=== PATIENT | male | born 1950 | race Caucasian/White ===

== ENCOUNTER → 2016-06-11 | Outpatient (REF) | payer OTHER, BC ==
[~2016-06-11] MED LIST: /RANI15TA PO; /WARF25TA PO; ACET50TA PO; ALTA10CA3 PO; ALTACE PO; COLA50CA3 PO; COUM7.5T PO; DILA2TAB PO; FURO20TA PO; INSULANT SC; JANU100T PO; LANTUS SOLOSTAR SC; LASI80TA PO; LIDO1DIS2 TD; LOPR100T PO; LOPRESSOR PO; METF1000 PO; MIRA255PW PO; OXYC30TA4 PO; PERC7.5T12 PO; PRAV80TA2 PO; PRAVACHOL PO; RANITIDINE HCL PO; VIAGRA PO; ZETI10TA21 PO; ZETIA PO
[2016-06-11 18:19] LABS: ALBUMIN 4.4 GM/DL (3.2-5.2); ALBUMIN/GLOBULIN RATIO 1.42 (1.00-1.93); ALKALINE PHOSPHATASE 73 U/L (45-117); ALT/SGPT 22 U/L (12-78); ANION GAP 9 MEQ/L (8-16); AST/SGOT 22 U/L (15-37); BILIRUBIN,TOTAL 0.6 MG/DL (0.2-1.0); BLOOD UREA NITROGEN 19 MG/DL (7-18); CALCIUM LEVEL 9.3 MG/DL (8.8-10.2); CARBON DIOXIDE LEVEL 30 MEQ/L (21-32); CHLORIDE LEVEL 104 MEQ/L (98-107); CHOLESTEROL LEVEL 154 MG/DL (<200); CREATININE FOR GFR 1.18 MG/DL (0.70-1.30); GLOMERULAR FILTRATION RATE > 60.0 (>49); GLUCOSE, FASTING 65 MG/DL (80-110); SODIUM LEVEL 143 MEQ/L (136-145); TOTAL PROTEIN 7.5 GM/DL (6.4-8.2); TRIGLYCERIDES LEVEL 144 MG/DL (<150)
== END ==
LOC: M SFHCCLAY 09:59
PROVIDERS: ATTEND Family Medicine
DX: E11.9 Type 2 diabetes mellitus without complications (principal)

== ENCOUNTER → 2016-09-24 | Outpatient (REF) | payer BC, OTHER ==
[2016-09-24 11:32] LABS: ANION GAP 8 MEQ/L (8-16); BLOOD UREA NITROGEN 28 MG/DL (7-18); CALCIUM LEVEL 9.6 MG/DL (8.8-10.2); CARBON DIOXIDE LEVEL 29 MEQ/L (21-32); CHLORIDE LEVEL 105 MEQ/L (98-107); CREATININE FOR GFR 1.15 MG/DL (0.70-1.30); GLOMERULAR FILTRATION RATE > 60.0 (>49); GLUCOSE, FASTING 93 MG/DL (80-110); POTASSIUM SERUM 4.2 MEQ/L (3.5-5.1); SODIUM LEVEL 142 MEQ/L (136-145)
== END ==
LOC: M SFHCCLAY 07:46
PROVIDERS: ATTEND Family Medicine
DX: E11.9 Type 2 diabetes mellitus without complications (principal)

== ENCOUNTER → 2017-01-07 | Outpatient (REF) | payer OTHER, BC ==
[2017-01-07 11:48] LABS: BASO # 0.1 10^3/uL (0.0-0.2); BASO % 0.6 % (0.0-1.0); EOS # 0.1 10^3/uL (0.0-0.50); EOS % 1.3 % (0.0-3.0); IMMATURE GRANULOCYTE % 0.7 % (0-0); LYMPH # 2.3 10^3/uL (1.5-4.5); LYMPH % 26.8 % (24.0-44.0); MEAN CORPUSCULAR HEMOGLOBIN 30.3 pg (27.0-33.0); MEAN CORPUSCULAR HGB CONC 32.4 g/dl (32.0-36.5); MEAN CORPUSCULAR VOLUME 93.6 fl (80.0-96.0); MONO # 0.7 10^3/uL (0.0-0.8); MONO % 8.6 % (0.0-5.0); NEUTROPHILS # 5.4 10^3/uL (1.8-7.7); PLATELET COUNT, AUTOMATED 286 10^3/uL (150-450); WHITE BLOOD COUNT 8.6 10^3/uL (4.0-10.0)
[2017-01-07 12:12] LABS: ANION GAP 8 MEQ/L (8-16); BLOOD UREA NITROGEN 23 MG/DL (7-18); CALCIUM LEVEL 8.7 MG/DL (8.8-10.2); CARBON DIOXIDE LEVEL 29 MEQ/L (21-32); CHLORIDE LEVEL 106 MEQ/L (98-107); CREATININE FOR GFR 1.09 MG/DL (0.70-1.30); GLOMERULAR FILTRATION RATE > 60.0 (>49); GLUCOSE, FASTING 132 MG/DL (80-110); POTASSIUM SERUM 4.5 MEQ/L (3.5-5.1); SODIUM LEVEL 143 MEQ/L (136-145)
== END ==
LOC: M SFHCCLAY 07:48
PROVIDERS: ATTEND Family Medicine
DX: K52.9 Noninfective gastroenteritis and colitis, unspecified (principal); E11.9 Type 2 diabetes mellitus without complications; K21.0 Gastro-esophageal reflux disease with esophagitis

== ENCOUNTER → 2017-01-07 | Outpatient (CLI) | payer OTHER, BC ==
--- NOTE | 2017-01-07 09:21 | REP ---
Clinical: Plantar fasciitis. Technique: AP, lateral, bilateral oblique views of the right foot. Findings: Osseous structures are intact. Moderate generative changes at the first metatarsophalangeal joint includes joint space narrowing, subchondral sclerosis and marginal osteophyte. Lateral view demonstrates normal plantar soft tissues without calcification or obvious swelling. Calcaneus is normal and without heal spur. Impression: Degenerative changes at the first metatarsophalangeal joint. Signed by Gabriel Peña MD 01/07/2017 09:12 A
== END ==
LOC: M CLY 08:24
PROVIDERS: ATTEND Family Medicine
DX: M72.2 Plantar fascial fibromatosis (principal); K52.9 Noninfective gastroenteritis and colitis, unspecified

== ENCOUNTER → 2017-04-15 | Outpatient (REF) | payer BC, OTHER ==
[2017-04-15 12:07] LABS: ALBUMIN 4.6 GM/DL (3.2-5.2); ALBUMIN/GLOBULIN RATIO 1.48 (1.00-1.93); ALKALINE PHOSPHATASE 91 U/L (45-117); ALT/SGPT 28 U/L (12-78); ANION GAP 8 MEQ/L (8-16); AST/SGOT 19 U/L (7-37); BILIRUBIN,TOTAL 0.7 MG/DL (0.2-1.0); BLOOD UREA NITROGEN 23 MG/DL (7-18); CALCIUM LEVEL 9.2 MG/DL (8.8-10.2); CARBON DIOXIDE LEVEL 30 MEQ/L (21-32); CHLORIDE LEVEL 105 MEQ/L (98-107); CHOLESTEROL LEVEL 160 MG/DL (<200); CREATININE FOR GFR 1.16 MG/DL (0.70-1.30); GLOMERULAR FILTRATION RATE > 60.0 (>49); GLUCOSE, FASTING 94 MG/DL (70-100); HDL CHOLESTEROL 50 MG/DL (>40); LDL CHOLESTEROL 79.2 MG/DL (<100); NON-HDL-C 110 MG/DL; POTASSIUM SERUM 4.1 MEQ/L (3.5-5.1); SODIUM LEVEL 143 MEQ/L (136-145); TOTAL PROTEIN 7.7 GM/DL (6.4-8.2); TRIGLYCERIDES LEVEL 154 MG/DL (<150)
[2017-04-15 12:18] LABS: ESTIMATED AVERAGE GLUCOSE 171 MG/DL (60-110); HEMOGLOBIN A1c 7.6 %
[2017-04-15 12:43] LABS: CREATININE, URINE 21.5 MG/DL; MALB URINE SIEMENS 7.1 MG/L
== END ==
LOC: M SFHCCLAY 08:19
DX: E11.9 Type 2 diabetes mellitus without complications (principal); I10 Essential (primary) hypertension

== ENCOUNTER → 2018-01-05 | Outpatient (REF) | payer BC ==
[2018-01-05 17:35] LABS: ALBUMIN 4.1 GM/DL (3.2-5.2); ANION GAP 9 MEQ/L (8-16); BLOOD UREA NITROGEN 20 MG/DL (7-18); CALCIUM LEVEL 8.7 MG/DL (8.8-10.2); CARBON DIOXIDE LEVEL 28 MEQ/L (21-32); CHLORIDE LEVEL 104 MEQ/L (98-107); CREATININE FOR GFR 1.25 MG/DL (0.70-1.30); GLOMERULAR FILTRATION RATE > 60.0 (>49); GLUCOSE, FASTING 224 MG/DL (70-100); PHOSPHORUS LEVEL 3.1 MG/DL (2.5-4.9); POTASSIUM SERUM 4.3 MEQ/L (3.5-5.1); SODIUM LEVEL 141 MEQ/L (136-145)
[2018-01-05 18:44] LABS: ESTIMATED AVERAGE GLUCOSE 171 MG/DL (60-110); HEMOGLOBIN A1c 7.6 %
== END ==
LOC: M SFHCCLAY 10:16
DX: E11.9 Type 2 diabetes mellitus without complications (principal); I10 Essential (primary) hypertension

== ENCOUNTER → 2018-05-05 | Outpatient (REF) | payer MEDICARE ==
[2018-05-05 16:58] LABS: ALBUMIN 4.2 GM/DL (3.2-5.2); ALT/SGPT 41 U/L (12-78); BILIRUBIN,TOTAL 0.5 MG/DL (0.2-1.0); BLOOD UREA NITROGEN 27 MG/DL (7-18); CALCIUM LEVEL 8.9 MG/DL (8.8-10.2); CARBON DIOXIDE LEVEL 32 MEQ/L (21-32); CHLORIDE LEVEL 104 MEQ/L (98-107); CREATININE FOR GFR 1.18 MG/DL (0.70-1.30); GLOMERULAR FILTRATION RATE > 60.0 (>49); GLUCOSE, FASTING 70 MG/DL (70-100); POTASSIUM SERUM 4.3 MEQ/L (3.5-5.1); SODIUM LEVEL 141 MEQ/L (136-145); TOTAL PROTEIN 7.2 GM/DL (6.4-8.2)
[2018-05-05 17:00] LABS: CHOLESTEROL RISK RATIO 2.83 (<5)
[2018-05-05 17:13] LABS: HEMOGLOBIN A1c 7.3 %
[2018-05-05 17:21] LABS: CREATININE, URINE 18.8 MG/DL; MALB URINE SIEMENS < 5.0 MG/L; MAU/CREAT RATIO 26.5 MCG/MG (0.0-30.0)
== END ==
LOC: M SFHCCLAY 10:47
PROVIDERS: ATTEND Family Medicine
DX: I10 Essential (primary) hypertension (principal); E11.9 Type 2 diabetes mellitus without complications; E78.00 Pure hypercholesterolemia, unspecified

== ENCOUNTER → 2018-09-26 | Outpatient (REF) | payer MEDICARE ==
[~2018-09-26] MED LIST changes: -/RANI15TA PO; -/WARF25TA PO; -ACET50TA PO; +COUM1TAB18 PO; +MAPA500T17 PO; -MIRA255PW PO; +POLY1POW4 PO; +RANI1TAB17 PO
[2018-09-26 17:34] LABS: BLOOD UREA NITROGEN 19 MG/DL (7-18); CALCIUM LEVEL 9.1 MG/DL (8.8-10.2); CARBON DIOXIDE LEVEL 29 MEQ/L (21-32); CHLORIDE LEVEL 106 MEQ/L (98-107); CREATININE FOR GFR 1.21 MG/DL (0.70-1.30); GLOMERULAR FILTRATION RATE > 60.0 (>49); GLUCOSE, FASTING 134 MG/DL (70-100); POTASSIUM SERUM 4.1 MEQ/L (3.5-5.1); SODIUM LEVEL 141 MEQ/L (136-145)
[2018-09-26 17:54] LABS: HEMOGLOBIN A1c 7.8 %
[2018-09-26 18:00] LABS: CREATININE, URINE 37.6 MG/DL; MALB URINE SIEMENS 6.2 MG/L; MAU/CREAT RATIO 16.4 MCG/MG (0.0-30.0)
== END ==
LOC: M SFHCCLAY 12:05
PROVIDERS: ATTEND Family Medicine
DX: E11.9 Type 2 diabetes mellitus without complications (principal)

== ENCOUNTER → 2018-09-26 | Outpatient (CLI) | payer MEDICARE ==
--- NOTE | 2018-09-26 14:26 | REP ---
RIGHT ANKLE, FOUR VIEWS: HISTORY: Foot pain. There is no acute fracture or dislocation. The joint space is normal in appearance. IMPRESSION: There is no acute fracture or dislocation. Electronically Signed by Matias Edmond MD 09/26/2018 02:29 P
--- NOTE | 2018-09-26 14:30 | REP ---
RIGHT FOOT, FOUR VIEWS: HISTORY: Pain. COMPARISON: 12/28/2016. There is no acute fracture or dislocation. There are narrowing of the 1st metatarsophalangeal joint space with associated osteophyte formation and sclerosis. The remaining joint spaces are normal in appearance. An osteophyte is present on the inferior calcaneus. IMPRESSION: Degenerative change as described above. Electronically Signed by Matias Edmond MD 09/26/2018 02:53 P
== END ==
LOC: M CLY 13:05
PROVIDERS: ATTEND Family Medicine
DX: M19.071 Primary osteoarthritis, right ankle and foot (principal); M79.671 Pain in right foot

== ENCOUNTER → 2018-10-19 | Outpatient (REF) | payer MEDICARE | LOC: M LAB LCGH 14:05 | PROVIDERS: ATTEND Physician Assistant | DX: D48.5 Neoplasm of uncertain behavior of skin (principal) ==

== ENCOUNTER → 2019-02-13 | Outpatient (REF) | payer MEDICARE ==
[2019-02-13 13:04] LABS: ALT/SGPT 17 U/L (12-78); BLOOD UREA NITROGEN 21 MG/DL (7-18); CALCIUM LEVEL 9.3 MG/DL (8.8-10.2); CARBON DIOXIDE LEVEL 31 MEQ/L (21-32); CHLORIDE LEVEL 103 MEQ/L (98-107); CHOLESTEROL LEVEL 171 MG/DL (<200); CHOLESTEROL RISK RATIO 3.638 (<5); CREATININE FOR GFR 1.13 MG/DL (0.70-1.30); GLOMERULAR FILTRATION RATE > 60.0 (>49); GLUCOSE, FASTING 87 MG/DL (70-100); HDL CHOLESTEROL 47 MG/DL (>40); HEMOGLOBIN A1c 7.8 %; LDL CHOLESTEROL 100 MG/DL (<100); NON-HDL-C 124 MG/DL; POTASSIUM SERUM 4.1 MEQ/L (3.5-5.1); SODIUM LEVEL 142 MEQ/L (136-145); TRIGLYCERIDES LEVEL 120 MG/DL (<150)
== END ==
LOC: M SFHCCLAY 07:49
PROVIDERS: ATTEND Family Medicine
DX: I10 Essential (primary) hypertension (principal); Z12.5 Encounter for screening for malignant neoplasm of prostate; E11.9 Type 2 diabetes mellitus without complications
CPT/HCPCS: 80048; 80061; 83036; 84460; G0103

== ENCOUNTER → 2019-06-08 | Outpatient (REF) | payer MEDICARE ==
[2019-06-08 12:43] LABS: BLOOD UREA NITROGEN 26 MG/DL (7-18); CALCIUM LEVEL 8.3 MG/DL (8.8-10.2); CARBON DIOXIDE LEVEL 27 MEQ/L (21-32); CHLORIDE LEVEL 106 MEQ/L (98-107); CREATININE FOR GFR 1.26 MG/DL (0.70-1.30); GLOMERULAR FILTRATION RATE > 60.0 (>49); GLUCOSE, FASTING 168 MG/DL (70-100); POTASSIUM SERUM 4.4 MEQ/L (3.5-5.1); SODIUM LEVEL 141 MEQ/L (136-145)
[2019-06-08 13:01] LABS: HEMOGLOBIN A1c 7.5 %
== END ==
LOC: M SFHCCLAY 09:45
PROVIDERS: ATTEND Family Medicine
DX: I10 Essential (primary) hypertension (principal); E11.9 Type 2 diabetes mellitus without complications

== ENCOUNTER 2019-11-14 10:52 | Emergency (ER) | payer BC, MEDICARE ==
[~2019-11-14] VITALS: Ht 180.3 cm; Wt 110.7 kg
[2019-11-14] MEDS ORDERED: EZET10TA21 PO (11:30)
[2019-11-14] MEDS ORDERED: RAMI1CAP26 PO (11:30)
[2019-11-14] MEDS ORDERED: MONT10TA4 PO (11:30)
[2019-11-14] MEDS ORDERED: ESOM40CA35 PO (11:30)
[2019-11-14] MEDS ORDERED: FURO40TA2 PO (11:30)
[2019-11-14] MEDS ORDERED: PRAV80TA2 PO (11:30)
[2019-11-14] MEDS ORDERED: METO100T5 PO (11:30)
[2019-11-14] MEDS ORDERED: LANTINJ4 SQ (11:30)
[2019-11-14] MEDS ORDERED: JARD1TAB3 PO (11:30)
[2019-11-14] MEDS ORDERED: METF10004 PO (11:30)
[2019-11-14] MEDS ORDERED: OCUVCAP2 PO (11:32)
[2019-11-14] MEDS ORDERED: DAILTAB PO (11:32)
[2019-11-14 11:42] LABS: BASO % 0.5 % (0.0-1.0); EOS % 0.5 % (0.0-3.0); HEMATOCRIT 49.7 % (42.0-52.0); HEMOGLOBIN 16.2 g/dl (13.5-17.5); LYMPH # 1.9 10^3/uL (1.5-5.0); LYMPH % 24.4 % (24.0-44.0); MEAN CORPUSCULAR HEMOGLOBIN 30.3 pg (27.0-33.0); MEAN CORPUSCULAR HGB CONC 32.6 g/dl (32.0-36.5); MEAN CORPUSCULAR VOLUME 92.9 fl (80.0-96.0); MONO # 0.6 10^3/uL (0.0-0.8); MONO % 7.2 % (0.0-5.0); NEUTROPHILS # 5.3 10^3/uL (1.5-8.5); NEUTROPHILS % 67.3 % (36.0-66.0); PLATELET COUNT, AUTOMATED 240 10^3/uL (150-450); RED BLOOD COUNT 5.35 10^6/uL (4.30-6.10); WHITE BLOOD COUNT 7.9 10^3/uL (4.0-10.0)
[2019-11-14 11:52] LABS: INR 0.93; PROTHROMBIN TIME 12.7 SECONDS (12.5-14.3)
[2019-11-14 11:53] LABS: PARTIAL THROMBOPLASTIN TIME 28.1 SECONDS (24.2-38.5)
[2019-11-14 12:12] LABS: BILIRUBIN,DIRECT 0.2 MG/DL (0.0-0.2); BILIRUBIN,TOTAL 0.8 MG/DL (0.2-1.0); FREE T4 0.89 NG/DL (0.76-1.46); THYROID STIMULATING HORMONE 4.27 uIU/ML (0.358-3.740); TOTAL PROTEIN 7.1 GM/DL (6.4-8.2)
[2019-11-14] MEDS ORDERED: ELIQ5TAB PO (14:36)
[2019-11-14] MEDS ORDERED: METO50TA7 PO (14:37)
[2019-11-14 15:02] VITALS: O2SAT 97
[2019-11-14 15:45] VITALS: BP 108/56
--- NOTE | 2019-11-15 20:45 | ECGEPIP ---
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
--- NOTE | 2019-11-21 10:20 | REP ---
PORTABLE CHEST X-RAY: SINGLE VIEW HISTORY: Chest pain. COMPARISON: Chest x-ray 04/23/2013. FINDINGS: Thoracolumbar fusion hardware is noted. Monitoring electrodes are seen. Left hemidiaphragm is slightly elevated. There is minimal linear fibrosis on the left in the perihilar region. Lung kinney are otherwise clear. Pleural angles are sharp. Heart is not enlarged. IMPRESSION: No acute disease. MTDD
== END 2019-11-14 15:53 | disposition home or self-care (01) ==
LOC: EDBD 10:52 → M ED 10:52
DX: I48.92 Unspecified atrial flutter (principal); I45.19 Other right bundle-branch block; E11.9 Type 2 diabetes mellitus without complications; I10 Essential (primary) hypertension; K21.9 Gastro-esophageal reflux disease without esophagitis; E78.00 Pure hypercholesterolemia, unspecified; Z87.891 Personal history of nicotine dependence; Z79.84 Long term (current) use of oral hypoglycemic drugs; Z79.899 Other long term (current) drug therapy

== ENCOUNTER → 2019-12-10 | Outpatient (CLI) | payer MEDICARE ==
[~2019-12-10] MED LIST changes: +DAILTAB PO; +ELIQ5TAB PO; +ESOM40CA35 PO; +EZET10TA21 PO; +FURO40TA2 PO; +JARD1TAB3 PO; +LANTINJ4 SQ; +METF10004 PO; +METO100T5 PO; +METO50TA7 PO; +MONT10TA4 PO; +OCUVCAP2 PO; +RAMI1CAP26 PO
--- NOTE | 2019-12-21 12:10 | SLEEPHOME ---
DATE: 12/10/2019 ORDERED BY: Dr. Macdonald Diagnostic home sleep testing was performed due to concern for the obstructive sleep apnea syndrome. There was 9 hours and 59 minutes of data reviewed. There was 6 hours and 21 minutes marked as time in bed. During the interval marked time in bed, there were 163 respiratory events identified of 10 seconds in duration or greater for a respiratory event index of 25.6. The events were obstructive. Baseline pulse rate 55. Pulse rate ranged 27-104. Baseline saturation 95%. Saturations fell to 70%. Testing was performed in both the supine and nonsupine positions. IMPRESSION: Abnormal home sleep testing with repetitive respiratory events and oxygen desaturations to 70% with a respiratory event index of 26.6 is consistent with the obstructive sleep apnea syndrome (G47.33). RECOMMENDATION: The patient should be encouraged to undergo formal sleep evaluation. MTDD
== END ==
LOC: M SLEEP HO 12-05 09:42
PROVIDERS: ATTEND Internal Medicine Cardiovascular Disease
DX: R06.83 Snoring (principal)

== ENCOUNTER → 2020-01-25 | Outpatient (CLI) | payer MEDICARE, BC ==
[~2020-01-25] MED LIST changes: +ACET1TAB37 PO; +METO1TAB7 PO; -MONT10TA4 PO; +MONT5TAB2 PO; +TRUL0.5I SC
== END ==
LOC: M LABSMTC 12:31
PROVIDERS: ATTEND Anesthesiology
DX: Z01.812 Encounter for preprocedural laboratory examination (principal); Z20.828 Contact with and (suspected) exposure to other viral communicable diseases

== ENCOUNTER 2020-01-30 11:14 | Day surgery (SDC) | payer MEDICARE, BC ==
[~2020-01-30] VITALS: Ht 180.3 cm; Wt 108.0 kg
[~2020-01-30 11:14] MED LIST changes: +NS 1,000 ML IV ONE
[2020-01-30] MEDS ORDERED: propofoL 200 MG/20 ML VIAL As Ordered ONE ×2 (13:16→13:40)
[2020-01-30] MEDS ORDERED: LIDOCAINE 2% 100MG/5ML SDV (FOR ANES.) As Ordered ONE (13:16)
[2020-01-30] MEDS ORDERED: SIMETHICONE 40MG/0.6ML DROPS 30ML As Ordered ONE (13:17)
[2020-01-30] MEDS ORDERED: PHENYLephrine HCL 500 MCG/5 ML (100MCG/ML) SYRINGE (J2370) As Ordered ONE (13:51)
--- NOTE | 2020-01-30 14:06 | ROOR ---
Patient Name: Vic Reyes Procedure Date: 01/30/2020 1:23 PM Date of : 1950 Age: 69 Room: [facility] Gender: Male Note Status: Finalized Procedure: Total Colonoscopy to Cecum + Cold Snare Polypectomy + Hemoclips + Biopsies Indications: Clinically significant diarrhea of unexplained origin, Follow-up of chronic ulcerative proctitis, Change in bowel habits Providers: Yordan Ross MD Referring MD: Omari Wilde MD Requesting Provider: Medicines: Monitored Anesthesia Care Complications: No immediate complications. Procedure: Pre-Anesthesia Assessment: - The heart rate, respiratory rate, oxygen saturations, blood pressure, adequacy of pulmonary ventilation, and response to care were monitored throughout the procedure. The Colonoscope was introduced through the anus and advanced to the cecum, identified by appendiceal orifice and ileocecal valve. The colonoscopy was performed without difficulty. The patient tolerated the procedure well. The quality of the bowel preparation was excellent. Findings: The perianal and digital rectal examinations were normal. A localized area of moderately congested, erythematous, granular, ulcerated and yawsqupe-tmzcggu-mwcoplcma mucosa was found in the rectum. Biopsies were taken with a cold forceps for histology. A medium polyp was found in the cecum. The polyp was sessile. The polyp was removed with a jumbo cold forceps. Resection and retrieval were complete. To prevent bleeding after the polypectomy, three hemostatic clips were successfully placed (MR conditional). There was no bleeding at the end of the procedure. The exam was otherwise without abnormality on direct and retroflexion views. Impression: - Congested, erythematous, granular, ulcerated and byaaazhd-fdukssc-lezsuppjw mucosa in the rectum. Biopsied. - One medium polyp in the cecum, removed with a jumbo cold forceps. Resected and retrieved. Clips (MR conditional) were placed. - The examination was otherwise normal on direct and retroflexion views. - The exam was otherwise normal to the cecum. Recommendation: - Patient has a contact number available for emergencies. The signs and symptoms of potential delayed complications were discussed with the patient. Return to normal activities tomorrow. Written discharge instructions were provided to the patient. - High fiber diet. - Discharge patient to home. - Use Canasa 1000 mg suppository 1 per rectum QHS for 6 weeks. - Return to my office in 2 months. - Repeat colonoscopy for surveillance based on pathology results. - Telephone GI clinic for pathology results in 1 week. - The findings and recommendations were discussed with the patient. Procedure Code(s): --- Professional --- 62514, Colonoscopy, flexible; with biopsy, single or multiple Diagnosis Code(s): --- Professional --- K62.6, Ulcer of anus and rectum K62.89, Other specified diseases of anus and rectum K63.5, Polyp of colon R19.7, Diarrhea, unspecified K51.20, Ulcerative (chronic) proctitis without complications R19.4, Change in bowel habit CPT copyright 2019 [employer]. All rights reserved. The codes documented in this report are preliminary and upon public services librarian review may be revised to meet current compliance requirements. oYrdan Ross MD Yordan Ross MD 01/30/2020 2:05:27 PM Electronically signed by Yordan Ross MD Number of Addenda: 0 Note Initiated On: 01/30/2020 1:23 PM Estimated Blood Loss: Estimated blood loss: none.
[2020-01-30 14:22] VITALS: BP 126/72
== END 2020-01-30 14:24 | disposition home or self-care (01) ==
LOC: M OPP 11:14
PROVIDERS: ATTEND Internal Medicine Gastroenterology
DX: D12.0 Benign neoplasm of cecum (principal); K62.89 Other specified diseases of anus and rectum; R19.7 Diarrhea, unspecified; K51.20 Ulcerative (chronic) proctitis without complications; K62.1 Rectal polyp; E11.9 Type 2 diabetes mellitus without complications; I48.92 Unspecified atrial flutter; Z79.4 Long term (current) use of insulin; Z79.899 Other long term (current) drug therapy; Z87.891 Personal history of nicotine dependence
CPT/HCPCS: 45380; 88305; J2370

== ENCOUNTER → 2020-02-06 | Outpatient (REF) | payer MEDICARE, BC ==
[~2020-02-06] MED LIST changes: -NS 1,000 ML IV ONE
[2020-02-06 12:26] LABS: BASO % 0.5 % (0.0-1.0); EOS # 0.1 10^3/uL (0.0-0.5); EOS % 1.2 % (0.0-3.0); HEMATOCRIT 50.3 % (42.0-52.0); HEMOGLOBIN 15.6 g/dl (13.5-17.5); LYMPH # 2.7 10^3/uL (1.5-5.0); LYMPH % 34.7 % (24.0-44.0); MEAN CORPUSCULAR HEMOGLOBIN 29.3 pg (27.0-33.0); MEAN CORPUSCULAR VOLUME 94.4 fl (80.0-96.0); MONO # 0.7 10^3/uL (0.0-0.8); MONO % 8.6 % (0.0-5.0); NEUTROPHILS # 4.3 10^3/uL (1.5-8.5); NEUTROPHILS % 54.7 % (36.0-66.0); PLATELET COUNT, AUTOMATED 260 10^3/uL (150-450); RED BLOOD COUNT 5.33 10^6/uL (4.30-6.10); WHITE BLOOD COUNT 7.8 10^3/uL (4.0-10.0)
[2020-02-06 12:55] LABS: BLOOD UREA NITROGEN 24 MG/DL (7-18); CARBON DIOXIDE LEVEL 30 MEQ/L (21-32); CHLORIDE LEVEL 108 MEQ/L (98-107); CREATININE FOR GFR 1.17 MG/DL (0.70-1.30); GLOMERULAR FILTRATION RATE > 60.0 (>49); GLUCOSE, FASTING 75 MG/DL (70-100); POTASSIUM SERUM 3.9 MEQ/L (3.5-5.1); SODIUM LEVEL 142 MEQ/L (136-145)
== END ==
LOC: M LABDRAWC 11:12
PROVIDERS: ATTEND Internal Medicine Cardiovascular Disease
DX: I48.3 Typical atrial flutter (principal)

== ENCOUNTER → 2020-02-24 | Outpatient (CLI) | payer MEDICARE, BC | LOC: M LABSMTC 09:34 | PROVIDERS: ATTEND Internal Medicine Cardiovascular Disease | DX: Z20.828 Contact with and (suspected) exposure to other viral communicable diseases (principal) ==

== ENCOUNTER → 2020-02-27 | Outpatient (REF) | payer MEDICARE, BC ==
[~2020-02-27] MED LIST changes: +MONT10TA10 PO; -MONT5TAB2 PO
[2020-02-27 12:11] LABS: HEMOGLOBIN A1c 7.4 %
[2020-02-27 12:26] LABS: ALBUMIN 4.4 GM/DL (3.2-5.2); ALT/SGPT 26 U/L (12-78); BILIRUBIN,TOTAL 0.7 MG/DL (0.2-1.0); BLOOD UREA NITROGEN 19 MG/DL (7-18); CALCIUM LEVEL 9.1 MG/DL (8.8-10.2); CARBON DIOXIDE LEVEL 30 MEQ/L (21-32); CHLORIDE LEVEL 106 MEQ/L (98-107); CHOLESTEROL LEVEL 150 MG/DL (<200); CHOLESTEROL RISK RATIO 2.631 (<5); CREATININE FOR GFR 1.05 MG/DL (0.70-1.30); GLOMERULAR FILTRATION RATE > 60.0 (>49); GLUCOSE, FASTING 78 MG/DL (70-100); HDL CHOLESTEROL 57 MG/DL (>40); LDL CHOLESTEROL 78 MG/DL (<100); NON-HDL-C 93 MG/DL; POTASSIUM SERUM 4.1 MEQ/L (3.5-5.1); SODIUM LEVEL 142 MEQ/L (136-145); TOTAL PROTEIN 7.3 GM/DL (6.4-8.2); TRIGLYCERIDES LEVEL 76 MG/DL (<150)
[2020-02-27 12:32] LABS: CREATININE, URINE < 13.0 MG/DL; MALB URINE SIEMENS 7.1 MG/L
== END ==
LOC: M SFHCCLAY 09:14
PROVIDERS: ATTEND Family Medicine
DX: E78.00 Pure hypercholesterolemia, unspecified (principal); I10 Essential (primary) hypertension; E11.9 Type 2 diabetes mellitus without complications
CPT/HCPCS: 80053; 80061; 82043; 83036; G0463

== ENCOUNTER → 2020-04-03 | Outpatient (CLI) | payer MEDICARE, BC ==
[~2020-04-03] MED LIST changes: +TOUJ1.2I SC; +VITMTA PO
== END ==
LOC: M LABSMTC 12:42
PROVIDERS: ATTEND Anesthesiology
DX: Z01.812 Encounter for preprocedural laboratory examination (principal); Z20.822 Contact with and (suspected) exposure to COVID-19

== ENCOUNTER 2020-04-08 13:45 | Day surgery (SDC) | payer MEDICARE, BC ==
[~2020-04-08] VITALS: Ht 180.3 cm; Wt 111.1 kg
[~2020-04-08 13:45] MED LIST changes: +LIDOCAINE 1% MDV 20ML VIAL SQ PRN; +LR 1,000 ML IV ONE; +ceFAZolin SOD 1 GM in D5W MINI-BAG PLUS 50 ML IV ONE
--- OUTSIDE RECORDS SUMMARY | 2020-04-08 13:49 | CCD | Continuity of Care Document ---
Author Author Vic ROSS M.D. Organization Unknown Address [address] [place] [address] Phone [phone] Care Team Providers Care Registered Mail Clerk Name Role Phone Omari Wilde M.D. AUTM [phone] Problems Active Problems Provider Date Ulcerative colitis Yordan Ross M.D. Onset: 04/01/19 21 Hemorrhage of rectum and anus Yordan Ross M.D. Onset : 12/11/2019 Social History Type Date Description Comments Sex Unknown ETOH Use Occasionally Tobacco Use Start: Unknown End: Unknown Patient is a former smoker QUIT 1988 Allergies, Adverse Reactions, Alerts Description No Known Drug Allergies Medications Active Medications SIG Qnty Indications Ordering Provide r Date Metformin HCL 1000mg Tablets Omari Wilde M.D. Pravastatin Sodium 80mg Tablets Omari Wilde M.D. Ezetimibe 10mg Tablets Omari Wilde M.D. Furosemide 40mg Tablets Omari Wilde M.D. Trulicity 1.5mg/0.5ML Solution Pen -Inject Omari Wilde M.D. Eliquis 5mg Tablets Nicolas Li M.D. Ramipril 10mg Capsules Omari Wilde M.D. Montelukast Sodium 10mg Tablets Omari Wilde M.D. Esomeprazole Magnesium 40mg Capsules Omari Au M.D. Jardiance 25mg Tablets Unknown Toujeo Max Solostar 300Unit/ML Solution Pen-Inject Omari Wilde M.D. Metoprolol Tartrate 100mg Tablets Omari Wilde M.D. Multiple Vitamin Tablets Unknown Ocuvite Adult 50+ Capsules Unknown History Medications Canasa 1000mg Suppository 1 per rectum at bedtime 60units Yordan Ross M.D. 020 - 03/31/2020 Suprep Bowel Prep Kit 17.5-3.13-1.6GM/177ML Solution use as directed 354ml Yordan Ross M.D. 12/11/2019 - 03/31/2020 Immunizations Description No Information Available Vital Signs Date Vital Result Comment 04/01/2020 11:54am Height 71 inches 5'11" Weight 245.00 lb BP Systolic 133 mmHg BP Diastolic 79 mmHg Heart Rate 78 /min BMI (Body Mass Index) 34.2 kg/m2 Weight 111.132 kg Body Temperature 97.8 F 12/11/2019 1:16pm Height 71 inches 5'11" Weight 241.00 lb BP Systolic 131 mmHg BP Diastolic 79 mmHg Heart Rate 79 /min BMI (Body Mass Index) 33.6 kg/m2 Weight 109.318 kg Body Temperature 97.2 F Results Test Acquired Date Facility Test Result H/L Range Note Laboratory test finding 01/30/2020 [facility] [address] [place] [address] Pathology Request For Service (SEE NOTE) 1, 2 Laboratory test finding 01/30/2020 [facility] [id number] [place] [address] Bedside Glucose 89 mg/dL Normal 80-115 1 FINAL DIAGNOSIS A-Colon, cecal polyp, polypectomy: Tubular adenoma, fragments. B-Rectal biopsy: Colorectal mucosa with showing surface erosion, cryptitis, epithelitis, rare crypt abscess, basal plasmacytosis and gland branching The findings are consistent with patient's history of ulcerative proctitis. moderate activity. No evidence of premalignant dysplasia. 02/01/2020 - 1209 CLINICAL DIAGNOSIS Urgency, bloating, gas, discharge 01/31/2020 - 1135 GROSS DIAGNOSIS A - Received in formalin labeled "cecal polyp" and consists of a fragment of tissue 0.1 x 0.1 x 0.1 cm. All in one. B - Received in formalin labeled "rectal biopsy" and consists of fragments of tissue 0.2 x 0.1 x 0.1 cm. All in one. -OA 01/31/2020 - 1135 Signed ESSENCE SALAZAR MD 02/01/2020 1210 2 02/03/20 (TueFeb 02) 05:50 PM YORDAN ROSS benign adenoma] biopsies are consistent with Ulcerative proctitis. Suppositories sent-Canasa Procedures Date Code Description Status 01/30/2020 79901 Colonoscopy Flexible W/Biopsy Co mpleted Medical Devices Description No Information Available Encounters Type Date Location Provider Dx Diagnosis Office Visit 04/01/2020 11:30a Main Office Yordan Ross M.D. K 51.20 Ulcerative (chronic) proctitis without complications Office Visit 12/11/2019 1:30p Main Office Yordan Ross M.D. K 62.5 Hemorrhage of anus and rectum Assessments Date Code Description Provider 04/01/2020 K51.20 Chronic ulcerative proctitis Car Ross M.D. 01/30/2020 K62.5 Hemorrhage of anus and rectum Luis Ross M.D. 01/30/2020 D12.0 Benign neoplasm of cecum Yordan Ross M.D. 01/30/2020 L53.9 Erythematous condition, unspecif ied Yordan Ross M.D. 12/11/2019 K62.5 Hemorrhage of rectum and anus Luis Ross M.D. Plan of Treatment Future Appointment(s):* 09/30/2020 10:30 am - Yordan Ross M.D. at Main Office 04/01/2020 - Yordan Ross M.D.* K51.20 Chronic ulcerative proctitis* Comments:* 69 yo wm who presented for a h/o urgency for several yrs. Pt has rectal bleeding. No c/o abdominal pain, weight loss,or change in bowel habits. Positive rectal bleeding. No family h/o colon cancer. No h/o chest pain, or sob.He has been using the canasa supp, and his symptoms are improved. Positive Ulcerative Proctitis , no dysplasia on biopsies. Plan:1. Symptoms are all improved.2. Advised to use the suppositories twice each week as a maintenance.3. Office in 6 months. Functional Status Description No Information Available Mental Status Description No Information Available Referrals Refer to Reason for Referral Status Appt Date Nicolas Li M.D. CARDIAC CLEARANCE -PATIENT H APPT WITH DR LI 01-07 ALSO STATES HE MAY HAVE TO GO TO [place] FOR FURTHER WORKUP-DR ROSS WOULD LIKE TO DO A COLONOSCOPY -PATIENT IS ONN [place]-PLEASE EVAL AND ADDRESS REQUEST THANK YOU Created [address] [address] [phone] Nicolas Li M.D. PATIENT STATES HE HAS APPT W YARITZA LI 01-07 AND MAY BE REF TO [place]-DR ROSS WOULD LIKE TO SCHEDULE HIM A COLONOSCOPY BUT REALIZES HE NEEDS CARDIA CLEARANCE-PLEASE SNED AND NOTES AND PLEASE ADDRESS THIS REQUEST Created [address] [address] [phone]
--- OUTSIDE RECORDS SUMMARY | 2020-04-08 13:49 | CCD ---
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 Name Role Phone Iban Anderson Unavailable PROBLEMS Type Condition ICD9-CM Code OKW94-CD Code Onset Dates Condition S tatus SNOMED Code Notes Problem Esophageal reflux K21.9 Active 344684369 Problem Lichen planus L43.9 Active 7824339 Problem DM w/o complication type II E11.9 Active 4404 4009 Problem LVH (left ventricular hypertrophy) I51.7 Activ e 62823380 Problem Allergic rhinitis J30.9 Active 57804285 Problem Essential hypertension I10 Active 07512000 Problem 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 Active 91557541 Problem Varicose veins of left lower extremity with inflammation I83.12 Active 42244383 Problem Personal history of malignant melanoma Z85.820 A ctive 702375094 Problem Plantar fasciitis of right foot M72.2 Active 54506695206440746 Problem Seasonal allergic rhinitis, unspecified trigger J3 0.2 Active 319355542 Problem Stasis dermatitis of both legs I87.2 Active 3 9305206 Problem Non-specific colitis K52.9 Active 061639467 Problem Pure hypercholesterolemia, unspecified E78.00 A ctive 637049622 Problem GERD with esophagitis K21.0 Active 543833546 Problem Pure hypercholesterolemia E78.0 Active 995508 004 Problem Unspecified atrial flutter I48.92 Active 38779 00 Problem History of basal cell carcinoma Z85.828 Active 751798988 Problem History of squamous cell carcinoma Z85.89 Activ e 46645890792877 Problem History of melanoma Z85.820 Active 209117753 ALLERGIES No Known Allergies ENCOUNTERS from 1950 to 2020-03-07 Encounter Location Date Provider Diagnosis [facility] [place] [address] Jul Iban Anderson IMMUNIZATIONS Vaccine Route Administration Date Status Influenza (18 yrs & older) Flublok IM Intramuscular Nov 23, 2019 Administered Zoster 0.65mL (Zostavax) SC Subcutaneous Jan 06, 2012 Adminis tered Influenza (18 yrs & older) Flublok Unknown Nov 22, 2017 Administered Influenza (18 yrs & older) Flublok IM Intramuscular Nov 30, 2018 Administered Influenza (6mo & up) Fluzone IM Intramuscular Feb 10, 2010 Ad ministered Pneumococcal Adult 0.5mL (Pneumovax 23) IM Intramuscular Apr 15, 2017 Administered TDAP IM Intramuscular Feb 10, 2010 Administered Pneumococcal 0.5mL (Prevnar 13) IM Intramuscular Oct 24, 2015 Administered Influenza (6mo & up) Fluzone IM Intramuscular Nov 01, 2014 Ad ministered Influenza (6mo & up) Fluzone IM Intramuscular Jan 04, 2014 Ad ministered Influenza (6mo & up) Fluzone IM Intramuscular Dec 27, 2012 Ad ministered Influenza (6mo & up) Fluzone IM Intramuscular Jan 06, 2012 Ad ministered Influenza (6mo & up) Fluzone IM Intramuscular Jan 07, 2011 Ad ministered SOCIAL HISTORY Tobacco Use: Social History Observation Description Date Details (start date - stop date) Former Smoker Sex Assigned At : Social History Observation Description Sex Assigned At Unknown Education: Question Answer Notes Level of Education: Finished College Audit Question Answer Notes Total Score: 1 Interpretation: Alcohol Education Mosque: Question Answer Notes Mosque No judaism beliefs that would impact health care. Sexual Hx: Question Answer Notes Had sex in the last 12 months (vaginal, oral, or anal)? Yes Have you ever had an STD? No with Women only Use protection? No Drug and Alcohol Question Answer Notes Total Score: 0 Interpretation: No problems reported Alcohol Screening: Question Answer Notes Did you have a drink containing alcohol in the past year? Ye s Points 2 Interpretation Negative How often did you have six or more drinks on one occas ion in the past year? Never (0 points) How many drinks did you have on a typica l day when you were drinking in the past year? 1 or 2 (0 points) How often did you have a drink containing alcohol in t he past year? Two to four times a month (2 points) BMI Care Goal Follow-Up Question Answer Notes Above Normal BMI Follow-Up Dietary management educatio n, guidance, and counseling Tobacco Use: Question Answer Notes Are you a: former smoker former smoker quit 02/06/1995 Additional Findings: Tobacco User none Additional Findings: Tobacco Non-User Current non-smoker How long has it been since you last smoked? > 10 years UPDATED 02/27/2020 REASON FOR REFERRAL No Information VITAL SIGNS Weight 246 lbs Jul, Height 70 in Jul, BMI 35.29 kg/m2 Jul, Heart Rate 75 /min Jul, Respiratory Rate 18 /min Jul, Temperature 97.5 degrees Fahrenheit Jul, Oximetry 96% ra Jul, Blood pressure systolic 109 mm Hg Jul, Blood pressure diastolic 67 mm Hg Jul, MEDICATIONS Medication SIG (Take, Route, Frequency, Duration) Notes Start Da te End Date Status Montelukast Sodium 10 MG 1 tablet Orally Once a day for 90 Active OneTouch Ultra II Test Strips 1 as directed subcutaneously bid Nov, Active Lantus SoloStar 100 UNIT/ML 60units AM 40 units PM Subcutaneous daily Active BD Pen Needle Ultrafine 29G X 12.7MM as directed SQ daily Apr, Active Multivitamin Adult - as directed Orally Active Probiotic - 1 capsule Orally Daily A ctive Lopressor 100MG half tab Orally Once a day Active Glucagon (rDNA) 1 MG as directed Injection Mar, Active Amoxicillin-Pot Clavulanate 875-125 MG 1 tablet Orally every 12 hrs Nov, Not-Taking Altace 10MG 1 capsule Orally once daily for 90 Active OneTouch Ultra II Test Strips BLUE 100 as directed subcutaneously bid Active Jardiance 25 MG 1 tablet Orally Once a day for 90 Active Eliquis 5 MG 1 tab Orally bid Active Needle (Disp) lantus solo star as directed SQ as directed Dec, Active Trulicity 1.5 MG/0.5ML 1 injection Subcutaneous weekly Active Lasix 40MG 2 tabs Orally DAILY for 90 Active Zetia 10MG 1 tablet Orally Once a day for 90 Active Esomeprazole Magnesium 40 MG 1 capsule Orally Once a day for 90 Active Metformin HCl 1000MG 1 tablet with a meal Orally twice a day for 90 Active OneTouch Ultra Test - USE DIRECTED TWO TIMES ADAY SUBCUTANEOUSLY Active Ocuvite - as directed Orally Active Pravachol 80MG 1 tablet Orally Once a day for 90 Active PROCEDURES No Information RESULTS No Results REASON FOR VISIT constipation MEDICAL (GENERAL) HISTORY Type Description Date Medical History DIABETES TYPE 2 Medical History HYPERTENSION Medical History MICROALBUMINURIA Medical History GERD Medical History Melanoma right church, 15 years ago Surgical History LESION REMOVED FROM RIGHT GREAT TOE Surgical History BACK SURGERY 1997 Surgical History right knee replacement 2013 Surgical History Vein ablation both legs, Dr. Sloan 11/10 18 Hospitalization History Surgery Goals Section No Information Health Concerns No Information MEDICAL EQUIPMENT No Information MENTAL STATUS No Information FUNCTIONAL STATUS No Information ASSESSMENTS No Information PLAN OF TREATMENT Next Appt Details Provider Name:Omari Wilde, 2020-08-27 07 :00:00 AM, [address] [place] [address], [phone], Provider Name:Chhaya Browning, 10:30:00 AM, [address] [facility], [address] [place] [address], [place], [address], Insurance Providers Payer Name Payer Address Payer Phone Insured Name Patient Relati onship to Insured Coverage Start Date Coverage End Date MEDICARE Part A and B [facility] [id number] [place] [phone] NILESH SANCHEZ [facility] [place] [facility] [id number] [facility] Quick [place] [address] NILESH SANCHEZ
--- OUTSIDE RECORDS SUMMARY | 2020-04-08 13:49 | CCD ---
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.9 Active confirmed 99897940 Problem LVH (left ventricular hypertrophy) I51.7 Activ e confirmed 30822796 Problem Allergic rhinitis J30.9 Active confirmed 61 809103 Problem Essential hypertension I10 Active confirmed 06047043 Problem 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 Active confirmed 12419185 Problem Varicose veins of left lower extremity with inflammation I83.12 Active confirmed 23879876 Problem Personal history of malignant melanoma Z85.820 A ctive confirmed 282000448 Problem Plantar fasciitis of right foot M72.2 Active confirmed 06715157540279843 Problem Seasonal allergic rhinitis, unspecified trigger J3 0.2 Active confirmed 342867562 Problem Stasis dermatitis of both legs I87.2 Active confir med 95828042 Problem Non-specific colitis K52.9 Active confirmed 208111842 Problem Pure hypercholesterolemia, unspecified E78.00 A ctive confirmed 466936508 Problem GERD with esophagitis K21.0 Active confirmed 973856989 Problem Pure hypercholesterolemia E78.0 Active confirmed 137417923 Problem Unspecified atrial flutter I48.92 Active confirmed 8612182 Problem History of basal cell carcinoma Z85.828 Active confirmed 312772130 Problem History of squamous cell carcinoma Z85.89 Activ e confirmed 23671626303366 Problem History of melanoma Z85.820 Active confirmed 789531824 ALLERGIES No Known Allergies ENCOUNTERS from 1950 to 2020-03-27 Encounter Location Date Provider Diagnosis [facility] [address] [address] Mar, Omari TELLEZ w/o complication type II E11.9 IMMUNIZATIONS Vaccine Route Administration Date Status Influenza (18 yrs & older) Flublok IM Intramuscular Nov 23, 2019 Administered Pneumococcal 0.5mL (Prevnar 13) IM Intramuscular Oct 24, 2015 Administered Pneumococcal Adult 0.5mL (Pneumovax 23) IM Intramuscular Apr 15, 2017 Administered Influenza (18 yrs & older) Flublok IM Intramuscular Nov 30, 2018 Administered Influenza (6mo & up) Fluzone IM Intramuscular Feb 10, 2010 Ad ministered Influenza (6mo & up) Fluzone IM Intramuscular Nov 01, 2014 Ad ministered Zoster 0.65mL (Zostavax) SC Subcutaneous Jan 06, 2012 Adminis tered TDAP IM Intramuscular Feb 10, 2010 Administered Influenza (18 yrs & older) Flublok Unknown Nov 22, 2017 Administered Influenza (6mo & up) Fluzone IM [...] Notes Total Score: 1 Interpretation: Alcohol Education Sabianism: Question Answer Notes Sabianism No moravian beliefs that would impact health care. Sexual [...] REASON FOR REFERRAL No Information VITAL SIGNS No information MEDICATIONS Medication SIG (Take, Route, Frequency, Duration) Notes Start Da te End Date Status Trulicity 1.5 MG/0.5ML 1 injection Subcutaneous weekly Active Zetia 10MG 1 tablet Orally Once a day for 90 days Active Lasix 40MG 2 tabs Orally DAILY for 90 days Active Pravachol 80MG 1 tablet Orally Once a day for 90 Active Multivitamin Adult - as directed Orally Active Esomeprazole Magnesium 40 MG 1 capsule Orally Once a day for 90 days Active Toujeo Max SoloStar 300 UNIT/ML 100 units Subcutaneous Daily Mar, Active Probiotic - 1 capsule Orally Daily A ctive Ocuvite - as directed Orally Active Amoxicillin-Pot Clavulanate 875-125 MG 1 tablet Orally every 12 hrs Nov, Not-Taking OneTouch Ultra II Test Strips 1 as directed subcutaneously bid Nov, Active Eliquis 5 MG 1 tab Orally bid for 90 days Active BD Pen Needle Ultrafine 29G X 12.7MM as directed SQ daily Apr, Active Montelukast Sodium 10 MG 1 tablet Orally Once a day for 90 days Active One touch ultra blue 1 strip topically bid for 90 day 2020 Active Needle (Disp) lantus solo star as directed SQ as directed Dec, Active Altace 10MG 1 capsule Orally once daily for 90 days Active Lopressor 100MG half tab Orally Once a day for 90 days Active Glucagon (rDNA) 1 MG as directed Injection Mar, Active Metformin HCl 1000MG 1 tablet with a meal Orally twice a day for 90 d ays Active Jardiance 25 MG 1 tablet Orally Once a day for 90 days Active PROCEDURES No Information RESULTS No Results REASON FOR VISIT SCRIPTS MEDICAL (GENERAL) HISTORY Type Description Date Medical History DIABETES TYPE 2 Medical History HYPERTENSION Medical History MICROALBUMINURIA Medical History GERD Medical History Melanoma right gnosticism, 15 years ago Surgical History LESION REMOVED FROM RIGHT GREAT TOE Surgical History BACK SURGERY 1997 Surgical History right knee replacement 2013 Surgical History Vein ablation both legs, Dr. Sloan 11/10 18 Hospitalization History Surgery Goals Section No Information Health Concerns No Information MEDICAL EQUIPMENT No Information MENTAL STATUS No Information FUNCTIONAL STATUS No Information ASSESSMENTS Encounter Date Diagnosis Assessment Notes Treatment Notes Treatm ent Clinical Notes Mar, DM w/o complication type II (ICD-10 - E11.9) PLAN OF TREATMENT Medication Medication Name Sig Start Date Stop Date Metformin HCl 1000MG 1 tablet with a meal Orally twice a day for 90 days Esomeprazole Magnesium 40 MG 1 capsule Orally Once a day for 90 days Altace 10MG 1 capsule Orally once daily for 90 days Lopressor 100MG half tab Orally Once a day for 90 days Eliquis 5 MG 1 tab Orally bid for 90 days One touch ultra blue 1 strip topically bid for 90 day Mar, Toujeo Max SoloStar 300 UNIT/ML 100 units Subcutaneous Daily Mar, Lasix 40MG 2 tabs Orally DAILY for 90 days Jardiance 25 MG 1 tablet Orally Once a day for 90 days Montelukast Sodium 10 MG 1 tablet Orally Once a day for 90 days Trulicity 1.5 MG/0.5ML 1 injection Subcutaneous weekly Zetia 10MG 1 tablet Orally Once a day for 90 days Next Appt Details Provider Name:Omari Wilde, 2020-08-27 07 :00:00 AM, [address] [place] [address], [phone], Provider Name:Chhaya Browning, 10:30:00 AM, [address] [facility], 1st Floor, [place], [address], Insurance Providers Payer Name Payer Address Payer Phone Insured Name Patient Relati onship to Insured Coverage Start Date Coverage End Date MEDICARE Part A and B [facility] [address] [place] [phone] NILESH SANCHEZ PPO [phone] [facility] [place] [id number] NILESH SANCHEZ
--- OUTSIDE RECORDS SUMMARY | 2020-04-08 13:49 | CCD ---
Continuity of Care Document (CCD) Created on: 04/01/2020 Vic Reyes JR External Reference #: [id number] : 1950 Sex: Male Author Author Vic ROSS M.D. Organization Unknown Address [address] [place] [address] Phone [phone] Care Team Providers Care Planetarium Technician Name Role Phone Omari Wilde M.D. AUTM [phone] Problems Active Problems Provider Date Ulcerative colitis [...] H/L Range Note Laboratory test finding 01/30/2020 [facility] [address] [place] [address] Pathology Request For Service (SEE NOTE) 1, 2 Laboratory test finding 01/30/2020 [facility] [address] [place] [address] Bedside Glucose 89 mg/dL Normal 80-115 1 [...] sent-Canasa Procedures Date Code Description Status 01/30/2020 58525 Colonoscopy Flexible W/Biopsy Co mpleted Medical Devices Description No Information Available Encounters Type Date Location Provider Dx Diagnosis Office Visit 12/11/2019 1:30p Main Office Yordan [...] Description No Information Available Referrals Refer to Dr Reason for Referral Status Appt Date Nicolas Li M.D. CARDIAC CLEARANCE -PATIENT H APPT WITH DR LI 01-07 ALSO STATES HE MAY HAVE TO GO TO [place] FOR FURTHER WORKUP-DR ROSS WOULD LIKE TO DO A COLONOSCOPY -PATIENT IS ONN [place]-PLEASE EVAL AND ADDRESS REQUEST THANK YOU Created [address] [address] [phone] Nicolas Li M.D. PATIENT STATES HE HAS APPT W YARITZA LI 01-07 AND MAY BE REF TO [place]-DR ROSS WOULD LIKE TO SCHEDULE HIM A COLONOSCOPY BUT REALIZES HE NEEDS CARDIA CLEARANCE-PLEASE SNED AND NOTES AND PLEASE ADDRESS THIS REQUEST Created [address] [address] [phone]
--- OUTSIDE RECORDS SUMMARY | 2020-04-08 13:49 | CCD ---
Author Author [facility] Organization [facility] Address Unknown Phone Unavailable Care Team Providers Care Community Engagement Representative Name Role Phone Omari Wilde Unavailable PROBLEMS Type Condition ICD9-CM Code [id number] Code Onset Dates Condition S tatus W/U Status Risk SNOMED Code Notes Problem Esophageal reflux K21.9 Active confirmed 23 5462783 Problem Lichen planus L43.9 Active confirmed 383368 4 Problem DM w/o complication type II E11.9 Active confirmed 87730328 Problem LVH (left ventricular hypertrophy) I51.7 Activ e confirmed 77970585 Problem Allergic rhinitis J30.9 Active confirmed 61 816605 Problem Essential hypertension I10 Active confirmed 82524523 Problem 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 Active confirmed 76920037 Problem Varicose veins of left lower extremity with inflammation I83.12 Active confirmed 44615234 Problem Personal history of malignant melanoma Z85.820 A ctive confirmed 426459298 Problem Plantar fasciitis of right foot M72.2 Active confirmed 68847120018400307 Problem Seasonal allergic rhinitis, unspecified trigger J3 0.2 Active confirmed 192186092 Problem Stasis dermatitis of both legs I87.2 Active confir med 50458829 Problem Non-specific colitis K52.9 Active confirmed 205173658 Problem Pure hypercholesterolemia, unspecified E78.00 A ctive confirmed 818753535 Problem GERD with esophagitis K21.0 Active confirmed 919404792 Problem Pure hypercholesterolemia E78.0 Active confirmed 184258293 Problem Unspecified atrial flutter I48.92 Active confirmed 4623491 Problem History of basal cell carcinoma Z85.828 Active confirmed 497812388 Problem History of squamous cell carcinoma Z85.89 Activ e confirmed 49611737305698 Problem History of melanoma Z85.820 Active confirmed 023401450 ALLERGIES No Known Allergies ENCOUNTERS from 1950 to 2020-03-28 Encounter Location Date Provider Diagnosis [facility] Ne[address] [address] Mar, Omari TELLEZ w/o complication type II [...] Notes Total Score: 1 Interpretation: Alcohol Education Pentecostalism: Question Answer Notes Pentecostalism No tenriism beliefs that would impact health care. Sexual Hx: Question Answer Notes Had sex in the last 12 months (vaginal, oral, or anal)? Yes Have you ever had an STD? No with Women only Use protection? No Drug and Alcohol Question Answer Notes Interpretation: No problems reported Total Score: 0 Alcohol Screening: Question Answer Notes Did you [...] Information RESULTS No Results REASON FOR VISIT No Information MEDICAL (GENERAL) HISTORY Type Description Date Medical History DIABETES TYPE 2 Medical History HYPERTENSION Medical History MICROALBUMINURIA Medical History GERD Medical History Melanoma right oriental orthodox, 15 years ago Surgical History LESION REMOVED [...] Provider Name:Omari Wilde, 2020-08-27 07 :00:00 AM, [address] [place] [address], [phone], Provider Name:Chhaya Browning, 10:30:00 AM, [address] [facility], 1st Floor, [place], [address], Insurance Providers Payer Name Payer Address Payer Phone Insured Name Patient Relati onship to Insured Coverage Start Date Coverage End Date MEDICARE Part A and B [facility] [address] [place] [phone] NILESH SANCHEZ [facility]Abd[facility]i O [phone] [facility] [employer] [place] [facility] [address] NILESH SANCHEZ
--- OUTSIDE RECORDS SUMMARY | 2020-04-08 13:49 | CCD ---
Author Author [facility] Organization [facility] Address Unknown Phone Unavailable Care Team Providers Care Senior Clinical Research Scientist Name Role Phone Omari Wilde Unavailable PROBLEMS Type Condition ICD9-CM Code [id number] Code Onset Dates Condition S tatus W/U Status Risk SNOMED Code Notes Problem Esophageal reflux K21.9 Active confirmed 23 0147023 Problem Lichen planus L43.9 Active confirmed 279870 4 Problem DM w/o complication type II E11.9 Active confirmed 36282364 Problem LVH (left ventricular hypertrophy) I51.7 Activ e confirmed 91282858 Problem Allergic rhinitis J30.9 Active confirmed 61 445501 Problem Essential hypertension I10 Active confirmed 86884657 Problem 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 Active confirmed 42444765 Problem Varicose veins of left lower extremity with inflammation I83.12 Active confirmed 95145238 Problem Personal history of malignant melanoma Z85.820 A ctive confirmed 963915856 Problem Plantar fasciitis of right foot M72.2 Active confirmed 44756381930878343 Problem Seasonal allergic rhinitis, unspecified trigger J3 0.2 Active confirmed 143682036 Problem Stasis dermatitis of both legs I87.2 Active confir med 46962893 Problem Non-specific colitis K52.9 Active confirmed 377733207 Problem Pure hypercholesterolemia, unspecified E78.00 A ctive confirmed 389994374 Problem GERD with esophagitis K21.0 Active confirmed 731777587 Problem Pure hypercholesterolemia E78.0 Active confirmed 049095910 Problem Unspecified atrial flutter I48.92 Active confirmed 9767917 Problem History of basal cell carcinoma Z85.828 Active confirmed 413713664 Problem History of squamous cell carcinoma Z85.89 Activ e confirmed 98622226119474 Problem History of melanoma Z85.820 Active confirmed 354556816 ALLERGIES No Known Allergies ENCOUNTERS from 1950 to 2020-03-28 Encounter Location Date Provider Diagnosis [facility] [address] [address] Mar, Omari TELLEZ w/o complication type II [...] Notes Total Score: 1 Interpretation: Alcohol Education Buddhist: Question Answer Notes Buddhist No religion beliefs that would impact health care. Sexual [...] Medical History GERD Medical History Melanoma right anabaptism, 15 years ago Surgical History LESION REMOVED [...] Provider Name:Omari Wilde, 2020-08-27 07 :00:00 AM, [address] [place] [address], [phone], Provider Name:Chhaya Browning, 10:30:00 AM, [address] [facility], 1st Floor, [place], [address], Insurance Providers Payer Name Payer Address Payer Phone Insured Name Patient Relati onship to Insured Coverage Start Date Coverage End Date BCJOSEFINA DHALIWAL PPO [phone] [facility] [employer] [facility] [address] NILESH SANCHEZ [facility] MEDICARE Part A and B [facility] [address] [place] [phone] NILESH SANCHEZ
--- OUTSIDE RECORDS SUMMARY | 2020-04-08 13:49 | CCD ---
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 II E11.9 Active confirmed 94450065 Problem LVH (left ventricular hypertrophy) I51.7 Activ e confirmed 44227935 Problem Allergic rhinitis J30.9 Active confirmed 61 239218 Problem Essential hypertension I10 Active confirmed 43951148 Problem 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 Active confirmed 56794698 Problem Varicose veins of left lower extremity with inflammation I83.12 Active confirmed 18187957 Problem Personal history of malignant melanoma Z85.820 A ctive confirmed 971422379 Problem Plantar fasciitis of right foot M72.2 Active confirmed 31609788004490230 Problem Seasonal allergic rhinitis, unspecified trigger J3 0.2 Active confirmed 582161094 Problem Stasis dermatitis of both legs I87.2 Active confir med 57540908 Problem Non-specific colitis K52.9 Active confirmed 299146200 Problem Pure hypercholesterolemia, unspecified E78.00 A ctive confirmed 974145063 Problem GERD with esophagitis K21.0 Active confirmed 148227358 Problem Pure hypercholesterolemia E78.0 Active confirmed 426783817 Problem Unspecified atrial flutter I48.92 Active confirmed 7921296 Problem History of basal cell carcinoma Z85.828 Active confirmed 300029583 Problem History of squamous cell carcinoma Z85.89 Activ e confirmed 59166298546504 Problem History of melanoma Z85.820 Active confirmed 012454671 ALLERGIES No Known Allergies ENCOUNTERS from 1950 to 2020-03-27 Encounter Location Date Provider Diagnosis [facility] Nehemiah [address] [address] Mar, Omari Wilde Essential hypertension I10 and DM w/o complication type II E11.9 IMMUNIZATIONS Vaccine [...] Notes Total Score: 1 Interpretation: Alcohol Education Uatsdin: Question Answer Notes Uatsdin No baptist beliefs that would impact health care. Sexual [...] Medical History GERD Medical History Melanoma right methodist, 15 years ago Surgical History LESION REMOVED [...] Treatment Notes Treatm ent Clinical Notes Mar, Essential hypertension (ICD-10 - I10) Mar, DM w/o complication type II (ICD-10 [...] Provider Name:Omari Wilde, 2020-08-27 07 :00:00 AM, [address] [place] [address], [address], Provider Name:Chhaya Browning, 10:30:00 AM, [address] [facility], [address] [place] [address], [place], [address], Insurance Providers Payer Name Payer Address Payer Phone Insured Name Patient Relati onship to Insured Coverage Start Date Coverage End Date MEDICARE Part A and B [facility] [address] [facility] [phone] RUSHO,NILESH M self BCBS [place] PPO [phone] [facility] [place] [address] NILESH SANCHEZ self
--- OUTSIDE RECORDS SUMMARY | 2020-04-08 13:49 | CCD ---
Author Author [facility] Organization [facility] Address Unknown Phone Unavailable Care Team Providers Care Admitting Manager Name Role Phone Omari Wilde Unavailable PROBLEMS Type Condition ICD9-CM Code [id number] Code Onset Dates Condition S tatus W/U Status Risk SNOMED Code Notes Problem Esophageal reflux K21.9 Active confirmed 23 9849274 Problem Lichen planus L43.9 Active confirmed 390086 4 Problem DM w/o complication type II E11.9 Active confirmed 46027863 Problem LVH (left ventricular hypertrophy) I51.7 Activ e confirmed 68398280 Problem Allergic rhinitis J30.9 Active confirmed 61 539440 Problem Essential hypertension I10 Active confirmed 13301024 Problem 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 Active confirmed 08023273 Problem Varicose veins of left lower extremity with inflammation I83.12 Active confirmed 63359582 Problem Personal history of malignant melanoma Z85.820 A ctive confirmed 996639081 Problem Plantar fasciitis of right foot M72.2 Active confirmed 31407222135146411 Problem Seasonal allergic rhinitis, unspecified trigger J3 0.2 Active confirmed 773017218 Problem Stasis dermatitis of both legs I87.2 Active confir med 26536162 Problem Non-specific colitis K52.9 Active confirmed 043403401 Problem Pure hypercholesterolemia, unspecified E78.00 A ctive confirmed 372610874 Problem GERD with esophagitis K21.0 Active confirmed 751035992 Problem Pure hypercholesterolemia E78.0 Active confirmed 854130097 Problem Unspecified atrial flutter I48.92 Active confirmed 2181955 Problem History of basal cell carcinoma Z85.828 Active confirmed 270332608 Problem History of squamous cell carcinoma Z85.89 Activ e confirmed 15413724726594 Problem History of melanoma Z85.820 Active confirmed 093740911 ALLERGIES No Known Allergies ENCOUNTERS from 1950 to 2020-03-27 Encounter Location Date Provider Diagnosis [facility] [address] [address] Mar, Omari Wilde IMMUNIZATIONS Vaccine Route Administration Date Status Influenza [...] Notes Total Score: 1 Interpretation: Alcohol Education Catholic: Question Answer Notes Catholic No lutheran beliefs that would impact health care. Sexual [...] Information RESULTS No Results REASON FOR VISIT scripts MEDICAL (GENERAL) HISTORY Type Description Date Medical History DIABETES TYPE 2 Medical History HYPERTENSION Medical History MICROALBUMINURIA Medical History GERD Medical History Melanoma right confucianist, 15 years ago Surgical History LESION REMOVED FROM RIGHT GREAT TOE Surgical History BACK SURGERY 1997 Surgical History right knee replacement 2013 Surgical History Vein ablation both legs, Dr. Sloan 11/10 18 Hospitalization History Surgery Goals Section No Information Health Concerns No Information MEDICAL EQUIPMENT No Information MENTAL STATUS No Information FUNCTIONAL STATUS No Information ASSESSMENTS No Information PLAN OF TREATMENT Medication Medication Name Sig [...] Provider Name:Omari Wilde, 2020-08-27 07 :00:00 AM, [address] [place] [address], [phone], Provider Name:Chhaya Browning, 10:30:00 AM, [address] [facility], [facility] [facility], [place], [address], Insurance Providers Payer Name Payer Address Payer Phone Insured Name Patient Relati onship to Insured Coverage Start Date Coverage End Date MEDICARE Part A and B [facility] [address] [place] [phone] NILESH SANCHEZ BCBS [place] PPO [phone] [facility] [place] [address] NILESH SANCHEZ
--- OUTSIDE RECORDS SUMMARY | 2020-04-08 13:49 | CCD ---
Author Author [facility] Organization [facility] Address Unknown Phone Unavailable Care Team Providers Care Instrument Lens Grinder Apprentice Name Role Phone Omari Wilde Unavailable PROBLEMS Type Condition ICD9-CM Code DVH89-DC Code Onset Dates Condition S tatus SNOMED Code Notes Problem Esophageal reflux K21.9 Active 688885913 Problem Lichen planus L43.9 Active 6028724 Problem DM w/o complication type II E11.9 Active 440 4006 Problem LVH (left ventricular hypertrophy) I51.7 Activ e 81932985 Problem Allergic rhinitis J30.9 Active 80096635 Problem Essential hypertension I10 Active 28455246 Problem 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 Active 71831826 Problem Varicose veins of left lower extremity with inflammation I83.12 Active 12578143 Problem Personal history of malignant melanoma Z85.820 A ctive 623775299 Problem Plantar fasciitis of right foot M72.2 Active 24948656113867627 Problem Seasonal allergic rhinitis, unspecified trigger J3 0.2 Active 228803665 Problem Stasis dermatitis of both legs I87.2 Active 3 2234759 Problem Non-specific colitis K52.9 Active 091939645 Problem Pure hypercholesterolemia, unspecified E78.00 A ctive 057582886 Problem GERD with esophagitis K21.0 Active 310597234 Problem Pure hypercholesterolemia E78.0 Active 390661 004 Problem Unspecified atrial flutter I48.92 Active 19693 00 Problem History of basal cell carcinoma Z85.828 Active 720036893 Problem History of squamous cell carcinoma Z85.89 Activ e 06571517168425 Problem History of melanoma Z85.820 Active 776757354 ALLERGIES No Known Allergies ENCOUNTERS from 1950 to 2020-03-04 Encounter Location Date Provider Diagnosis [facility] [place] [address] Feb, Omari Wilde Essential hypertension I10 ; DM w/o complication type II E11.9 ; Esophageal reflux K21.9 and Pure hypercholesterolemia, unspecified E78.00 IMMUNIZATIONS Vaccine Route Administration Date Status Influenza (18 yrs & older) Flublok IM Intramuscular Nov 23, 2019 Administered Zoster 0.65mL (Zostavax) SC Subcutaneous Jan 06, 2012 Adminis tered Pneumococcal Adult 0.5mL (Pneumovax 23) IM Intramuscular Apr 15, 2017 Administered Influenza (18 yrs & older) Flublok IM Intramuscular Nov 30, 2018 Administered Influenza (6mo & up) Fluzone IM Intramuscular Feb 10, 2010 Ad ministered TDAP IM Intramuscular Feb 10, 2010 Administered Influenza (18 yrs & older) Flublok Unknown Nov 22, 2017 Administered Pneumococcal 0.5mL (Prevnar 13) IM Intramuscular [...] Notes Total Score: 1 Interpretation: Alcohol Education Zoroastrian: Question Answer Notes Zoroastrian No restorationist beliefs that would impact health care. Sexual [...] FOR REFERRAL No Information VITAL SIGNS Weight 241.4 lbs Feb, Height 70 in Feb, BMI 34.63 kg/m2 Feb, Heart Rate 76 /min Feb, Respiratory Rate 18 /min Feb, Temperature 98 degrees Fahrenheit Feb, Oximetry 98RA Feb, Blood pressure systolic 130 mm Hg Feb, Blood pressure diastolic 80 mm Hg Feb, MEDICATIONS Medication SIG (Take, Route, Frequency, Duration) [...] for 90 Active PROCEDURES No Information RESULTS Component Value Reference Range Comprehensive Metabolic Profile (CMP) Reviewed date:02/28/2020 13:13:27 Interpretation:Normal Performing Lab:[facility] LABORATORY [address] [facility] [address] , ,[place] [address] GLUCOSE, FASTING 78 70-100 BLOOD UREA NITROGEN 19 7-18 CREATININE FOR GFR 1.05 0.70-1.30 GLOMERULAR FILTRATION RATE > 60.0 >49 SODIUM LEVEL 142 136-145 POTASSIUM SERUM 4.1 3.5-5.1 CHLORIDE LEVEL 106 98-107 CARBON DIOXIDE LEVEL 30 21-32 CALCIUM LEVEL 9.1 8.8-10.2 AST/SGOT 14 7-37 ALT/SGPT 26 12-78 ALKALINE PHOSPHATASE 90 45-117 BILIRUBIN,TOTAL 0.7 0.2-1.0 TOTAL PROTEIN 7.3 6.4-8.2 ALBUMIN 4.4 3.2-5.2 ALBUMIN/GLOBULIN RATIO 1.5 HEMOGLOBIN A1c Reviewed date:02/28/2020 13:13:27 Interpretation:Abnormal Performing Lab:[facility] LABORATORY [address] [facility] [address] , ,[place] [address] HEMOGLOBIN A1c 7.4 ESTIMATED AVERAGE GLUCOSE 166 60-110 LIPID PANEL (CARDIAC RISK) Reviewed date:02/28/2020 13:13:27 Interpretation:Normal Performing Lab:[facility] LABORATORY [address] [facility] [address] , ,[facility] TRIGLYCERIDES LEVEL 76 <150 CHOLESTEROL LEVEL 150 <200 HDL CHOLESTEROL 57 >40 LDL CHOLESTEROL 78 <100 NON-HDL-C 93 CHOLESTEROL RISK RATIO 2.631 <5 MICROALBUMIN RANDOM Reviewed date:02/28/2020 13:13:27 Interpretation:Normal Performing Lab:[facility] LABORATORY [address] [facility] [address] , ,[place] [address] CREATININE, URINE < 13.0 MALB URINE SIEMENS 7.1 OLIVER/CREAT RATIO 54.0 0.0-30.0 REASON FOR VISIT 3 mo follow up MEDICAL (GENERAL) HISTORY Type Description Date Medical History DIABETES TYPE 2 Medical History HYPERTENSION Medical History MICROALBUMINURIA Medical History GERD Medical History Melanoma right scientology, 15 years ago Surgical History LESION REMOVED [...] Notes Treatment Notes Treatm ent Clinical Notes Feb, Essential hypertension (ICD-10 - I10) Feb, DM w/o complication type II (ICD-10 - E11.9) Feb, Esophageal reflux (ICD-10 - K21.9) Feb, Pure hypercholesterolemia, unspecified (ICD-10 - E78.00) PLAN OF TREATMENT Next Appt Details 3 Months Reason: Provider Name:Omari Wilde, 2020-08-27 07 :00:00 AM, [address] [place] [address], [address], Provider Name:Chhaya Browning, 10:30:00 AM, [address] [facility], 1[address] Floor, [place], [address], Insurance Providers Payer Name Payer Address Payer Phone Insured Name Patient Relati onship to Insured Coverage Start Date Coverage End Date MEDICARE Part A and B [address] [facility] [address] NILESH SANCHEZ self [facility] [place] [facility] P[facility] [id number] [facility] VisualDNA [facility] [place] [id number] NILESH SANCHEZ self
--- OUTSIDE RECORDS SUMMARY | 2020-04-08 13:50 | CCD | Continuity of Care Document ---
Author Author Vic EVANS MD Organization Unknown Address [address] [place] [address] RD, [address] [place] [address] Phone [phone] Care Team Providers Care Contact Lens Inspector Name Role Phone Nicolas Macdonald MD AUTM Omari Wilde MD AUTM [phone] Problems Description No Information Available Social History Type Date Description Comments Sex Unknown Allergies, Adverse Reactions, Alerts Description No Known Drug Allergies Medications Active Medications SIG Qnty Indications Ordering Provide r Date Trulicity 1.5mg/0.5ML Solution Pen -Inject 1 injection weekly Unknown Lantus Solostar 100U nit/ML Solution Pen-Inject as directed Unknown Eliquis 5mg Tablets sig- 1 by mouth twice a day Unknown Montelukast Sodium 10mg Tablets 1 by mouth every day Unknown Jardiance 25mg Tablets 1 by mouth every day Unknown Ramipril 10mg Capsules 1 by mouth every day Unknown Esomeprazole Magnesium 40mg Capsul es DR 1 by mouth every day Unknown Metformin HCL 1000mg Tablets 1 by mouth twice a day Unknown Pravastatin Sodium 80mg Tablets 1 by mouth every day Unknown Ezetimibe 10mg Tablets 1 by mouth every day Unknown Furosemide 40mg Tablets 1 by mouth every day Unknown Metoprolol Tartrate 50mg Tablets 1 by mouth twice a day Unknown Immunizations Description No Information Available Vital Signs Date Vital Result Comment 01/10/2020 10:57am Weight 239.00 lb Results Description No Information Available Procedures Date Code Description Status 01/10/2020 19786 Electrocardiogram Complete Compl eted Medical Devices Description No Information Available Encounters Type Date Location Provider Dx Diagnosis Office Visit 01/10/2020 11:00a [facility], [facility]. Nasim Ponce MD I48.3 Typical atrial flutter R94.31 Abnormal electrocardiogram [ ECG] [EKG] Assessments Date Code Description Provider 01/10/2020 I48.3 Typical atrial flutter Nasim simms MD 01/10/2020 R94.31 Abnormal electrocardiogram [ECG] [EKG] Nasim Ponce MD Plan of Treatment Future Appointment(s):* 02/29/2020 6:45 am - Nasim Ponce MD at [facility] 01/10/2020 - Nasim Ponce MD* I48.3 Typical atrial flutter * R94.31 Abnormal electrocardiogram [ECG] [EKG]* New Labs:* BMP & CBC W/Diff, Ordered: 01/10/20 * Sars Coronavirus W/Cov-2 Rna Q, Ordered: 01/10/20 Functional Status Description No Information Available Mental Status Description No Information Available Referrals Description No Information Available
--- OUTSIDE RECORDS SUMMARY | 2020-04-08 13:50 | CCD | Continuity of Care Document ---
Author Author Vic ROSS M.D. Organization Unknown Address [address] [place] [address] Phone [phone] Care Team Providers Care Learning Support Assistant Name Role Phone Omari Wilde M.D. AUTM [phone] Problems Active Problems Provider Date Hemorrhage of rectum and anus Yordan Ross M.D. Onset : 12/11/2019 Social History Type Date Description Comments Sex Unknown ETOH Use Occasionally Tobacco Use Start: Unknown End: Unknown Patient is a former smoker 1988 Allergies, Adverse Reactions, Alerts Description No Known Drug Allergies Medications Active Medications SIG Qnty Indications Ordering Provide r Date Canasa 1000mg Suppository 1 per rectum at bedtime 60units Yordan Ross M.D. 020 Suprep Bowel Prep Kit 17.5-3.13-1.6GM/177ML Solution use as directed 354ml Yordan Ross M.D. 12/11/2019 Metformin HCL 1000mg Tablets Omari Wilde M.D. Pravastatin Sodium 80mg Tablets Omari Wilde M.D. Ezetimibe 10mg Tablets Omari Wilde M.D. Furosemide 40mg Tablets Omari Wilde M.D. Trulicity 1.5mg/0.5ML Solution Pen -Inject Omari Wilde M.D. Lantus Solostar 100U nit/ML Solution Pen-Inject Omari Wilde M.D. Eliquis 5mg Tablets Nicolas Li M.D. Ramipril 10mg Capsules Omari Wilde M.D. Montelukast Sodium 10mg Tablets Omari Wilde M.D. Esomeprazole Magnesium 40mg Capsules Omari Au M.D. Jardiance 25mg Tablets Unknown Immunizations Description No Information Available Vital Signs Date Vital Result Comment 12/11/2019 1:16pm Height 71 inches 5'11" Weight 241.00 lb BP Systolic 131 mmHg BP Diastolic 79 mmHg Heart Rate 79 /min BMI (Body Mass Index) 33.6 kg/m2 Weight 109.318 kg Body Temperature 97.2 F Results Test Acquired Date Facility Test Result H/L Range Note Laboratory test finding 01/30/[address] [address] Pathology Request For Service (SEE NOTE) 1 Laboratory test finding 01/30/[address] [address] Bedside Glucose 89 mg/dL Normal 80-115 1 FINAL DIAGNOSIS A-Colon, cecal polyp, polypectomy: Tubular adenoma, fragments. B-Rectal biopsy: Colorectal mucosa with showing surface erosion, cryptitis, epithelitis, rare crypt abscess, basal plasmacytosis and gland branching The findings are consistent with patient's history of ulcerative proctitis. moderate activity. No evidence of premalignant dysplasia. 02/01/2020 - 1209 CLINICAL DIAGNOSIS Urgency, bloating, gas, discharge 01/31/2020 - 1134 GROSS DIAGNOSIS A - Received in formalin labeled "cecal polyp" and consists of a fragment of tissue 0.1 x 0.1 x 0.1 cm. All in one. B - Received in formalin labeled "rectal biopsy" and consists of fragments of tissue 0.2 x 0.1 x 0.1 cm. All in one. -OA 01/31/2020 - 1135 Signed ESSENCE SALAZAR MD 02/01/2020 1210 Procedures Description No Information Available Medical Devices Description No Information Available Encounters Type Date Location Provider Dx Diagnosis Office Visit 12/11/2019 1:30p Main Office Yordan Ross M.D. K 62.5 Hemorrhage of anus and rectum Assessments Date Code Description Provider 12/11/2019 K62.5 Hemorrhage of rectum and anus Ge cherie Ross M.D. Plan of Treatment Future Appointment(s):* 04/01/2020 11:30 am - Yordan Ross M.D. at Main Office 12/11/2019 - Yordan Ross M.D.* K62.5 Hemorrhage of rectum and anus* Comments:* 69 yo wm who presents for a h/o urgency for several yrs. Pt has rectal bleeding. No c/o abdominal pain, weight loss,or change in bowel habits. Positive rectal bleeding. No family h/o colon cancer. No h/o chest pain, or sob. Plan:1. Colonoscopy 2. Informed consent. Functional Status Description No Information Available Mental Status Description No Information Available Referrals Refer to Dr Reason for Referral Status Appt Date Nicolas Li M.D. CARDIAC CLEARANCE -PATIENT H APPT WITH DR LI 01-07 ALSO STATES HE MAY HAVE TO GO TO [place] FOR FURTHER WORKUP-DR ROSS WOULD LIKE TO DO A COLONOSCOPY -PATIENT IS ONN ELIQUIS-PLEASE EVAL AND ADDRESS REQUEST THANK YOU Created [address] [address] [phone] Nicolas Li M.D. PATIENT STATES HE HAS APPT W [facility] LI 01-07 AND MAY BE REF TO [place]-DR ROSS WOULD LIKE TO SCHEDULE HIM A COLONOSCOPY BUT REALIZES HE NEEDS CARDIA CLEARANCE-PLEASE SNED AND NOTES AND PLEASE ADDRESS THIS REQUEST Created [address] [address] [phone]
--- OUTSIDE RECORDS SUMMARY | 2020-04-08 13:50 | CCD | Continuity of Care Document ---
Author Author Vic ROSS M.D. Organization Unknown Address [address] [place] [address] Phone [phone] Care Team Providers Care Order Processing Clerk Name Role Phone Omari Wilde M.D. AUTM [phone] Problems Active Problems Provider Date Hemorrhage of [...] test finding 01/30/2020 [facility] [address] [place] [address] Pathology Request For Service (SEE NOTE) 1, 2 Laboratory test finding 01/30/2020 [facility] [address] [place] [address] Bedside Glucose 89 mg/dL Normal 80-115 1 [...] consistent with Ulcerative proctitis. Suppositories sent-Canasa Procedures Description No Information Available Medical Devices [...] EVAL AND ADDRESS REQUEST THANK YOU Created [address] [address] [phone] Nicolas Li M.D. PATIENT STATES HE HAS APPT W [facility] LI 01-07 AND MAY BE REF TO [place]-DR ROSS WOULD LIKE TO SCHEDULE HIM A COLONOSCOPY BUT REALIZES HE NEEDS CARDIA CLEARANCE-PLEASE SNED AND NOTES AND PLEASE ADDRESS THIS REQUEST Created [address] [address] [phone]
--- OUTSIDE RECORDS SUMMARY | 2020-04-08 13:50 | CCD ---
Author Author [facility] Organization [facility] Address Unknown Phone Unavailable Care Team Providers Care Blast Furnace Keeper Helper Name Role Phone Omari Wilde Unavailable PROBLEMS Type Condition ICD9-CM Code UXY74-ET Code Onset Dates Condition S tatus SNOMED Code Notes Problem Esophageal reflux K21.9 Active 908441946 Problem Lichen planus L43.9 Active 9788033 Problem DM w/o complication type II E11.9 Active 4406 4000 Problem LVH (left ventricular hypertrophy) I51.7 Activ e 23111924 Problem Allergic rhinitis J30.9 Active 30366002 Problem Essential hypertension I10 Active 29248274 Problem 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 Active 15285315 Problem Varicose veins of left lower extremity with inflammation I83.12 Active 31471154 Problem Personal history of malignant melanoma Z85.820 A ctive 266385657 Problem Plantar fasciitis of right foot M72.2 Active 38132484886830289 Problem Hypercholesterolemia E78.00 Active 60578581 Problem History of squamous cell carcinoma Z85.89 Activ e 63209423572505 Problem GERD with esophagitis K21.0 Active 481346720 Problem History of melanoma Z85.820 Active 002145014 Problem Non-specific colitis K52.9 Active 860167760 Problem Pure hypercholesterolemia E78.0 Active 552411 004 Problem Seasonal allergic rhinitis, unspecified trigger J3 0.2 Active 728566555 Problem Unspecified atrial flutter I48.92 Active 88759 00 Problem Stasis dermatitis of both legs I87.2 Active 3 3877324 Problem History of basal cell carcinoma Z85.828 Active 505429613 ALLERGIES No Known Allergies ENCOUNTERS from 1950 to 2020-01-30 Encounter Location Date Provider Diagnosis [facility] [place] [address] Jan, Omari Wilde IMMUNIZATIONS Vaccine Route Administration Date [...] Notes Total Score: 1 Interpretation: Alcohol Education Alevism: Question Answer Notes Alevism No buddhist beliefs that would impact health care. Sexual [...] since you last smoked? > 10 years REASON FOR REFERRAL No Information VITAL SIGNS No information MEDICATIONS Medication SIG (Take, Route, Frequency, Duration) Notes Start Da te End Date Status Lasix 40MG 2 tabs Orally DAILY for 90 Active Amoxicillin-Pot Clavulanate 875-125 MG 1 tablet Orally every 12 hrs Nov, Not-Taking Glucagon (rDNA) 1 MG as directed Injection Mar, Active Lopressor 100MG half tab Orally Once a day Active Zetia 10MG 1 tablet Orally Once a day for 90 Active Pravachol 80MG 1 tablet Orally Once a day for 90 Active Lantus SoloStar 100 UNIT/ML 80 units or as directed Subcutaneous daily for 75 Active Trulicity 1.5 MG/0.5ML 1 injection Subcutaneous weekly Active Ocuvite - as directed Orally Active Probiotic - 1 capsule Orally Daily A ctive OneTouch Ultra Test - USE DIRECTED TWO TIMES ADAY SUBCUTANEOUSLY Active OneTouch Ultra II Test Strips 1 as directed subcutaneously bid Nov, Active Montelukast Sodium 10 MG 1 tablet Orally Once a day for 90 Active OneTouch Ultra II Test Strips BLUE 100 as directed subcutaneously bid Active Esomeprazole Magnesium 40 MG 1 capsule Orally Once a day for 90 Active Metformin HCl 1000MG 1 tablet with a meal Orally twice a day for 90 Active Jardiance 25 MG 1 tablet Orally Once a day for 90 Active Eliquis 5 MG 1 tab Orally bid Active BD Pen Needle Ultrafine 29G X 12.7MM as directed SQ daily Apr, Active Multivitamin Adult - as directed Orally Active Altace 10MG 1 capsule Orally once daily for 90 Active Needle (Disp) lantus solo star as directed SQ as directed Dec, Active PROCEDURES No Information RESULTS No Results REASON FOR VISIT insulin concerns MEDICAL (GENERAL) HISTORY Type Description Date Medical History DIABETES TYPE 2 Medical History HYPERTENSION Medical History MICROALBUMINURIA Medical History GERD Medical History Melanoma right congregational, 15 years ago Surgical History LESION REMOVED [...] Medication Name Sig Start Date Stop Date Montelukast Sodium 10 MG 1 tablet Orally Once a day for 90 Pravachol 80MG 1 tablet Orally Once a day for 90 Metformin HCl 1000MG 1 tablet with a meal Orally twice a day for 90 Altace 10MG 1 capsule Orally once daily for 90 Esomeprazole Magnesium 40 MG 1 capsule Orally Once a day for 90 Lasix 40MG 2 tabs Orally DAILY for 90 Jardiance 25 MG 1 tablet Orally Once a day for 90 Lantus SoloStar 100 UNIT/ML 80 units or as directed Subcutaneous daily for 75 Zetia 10MG 1 tablet Orally Once a day for 90 Next Appt Details Provider Name:Omari Wilde, 2020-02-27 08 :30:00 AM, [address] [place] [address], [address], Provider Name:Chhaya Browning, 10:30:00 AM, [address] [facility], [address] [facility], [place], [address], Insurance Providers Payer Name Payer Address Payer Phone Insured Name Patient Relati onship to Insured Coverage Start Date Coverage End Date BCBS [place] [employer] PPO [phone] [facility] [employer] [facility] [place] [id number] NILESH SANCHEZ MEDICARE Part A and B [facility] [address] [place] [address] [phone] NILESH SANCHEZ self
--- OUTSIDE RECORDS SUMMARY | 2020-04-08 13:50 | CCD | Continuity of Care Document ---
Author Author Vic EVANS MD Organization Unknown Address [address] [place] [address] RD, [address] [place] [address] Phone [phone] Care Team Providers Care Folder Seamer Automatic Name Role Phone Nicolas Macdonald MD AUTM Omari Wilde MD AUTM [phone] Problems Description No Information Available Social History [...] lb Results Description No Information Available Procedures Description No Information Available Medical Devices Description No Information Available Encounters Type Date Location Provider Dx Diagnosis Office Visit 01/10/2020 11:00a [facility]. Nasim Ponce MD I48.3 Typical atrial flutter Assessments Date Code Description Provider 01/10/2020 I48.3 Typical atrial flutter Nasim simms MD Plan of Treatment 01/10/2020 - Nasim Ponce MD* I48.3 Typical atrial flutter* New Labs:* BMP & CBC W/Diff, Ordered: 01/10/20 * Sars Coronavirus W/Cov-2 Rna Q, Ordered: 01/10/20 Functional Status Description No Information Available Mental Status Description No Information Available Referrals Description No Information Available
--- OUTSIDE RECORDS SUMMARY | 2020-04-08 13:50 | CCD | Continuity of Care Document ---
Author Author Vic ROSS M.D. Organization Unknown Address [address] [place] [address] Phone [phone] Care Team Providers Care Commercial Green Building Architect Name Role Phone Omari Wilde M.D. AUTM [phone] Problems Active Problems Provider Date Hemorrhage of [...] Omari Wilde M.D. Montelukast Sodium 10mg Tablets Oamri Wilde M.D. Esomeprazole Magnesium 40mg Capsules Omari [...] H/L Range Note Laboratory test finding 01/30/2020 [facility] [address] [place] [address] Pathology Request For Service (SEE NOTE) 1, 2 Laboratory test finding 01/30/2020 [facility] [address] [place] [address] Bedside Glucose 89 mg/dL Normal 80-115 1 FINAL DIAGNOSIS A-Colon, cecal polyp, polypectomy: Tubular adenoma, fragments. B-Rectal biopsy: Colorectal mucosa with showing surface erosion, cryptitis, epithelitis, rare crypt abscess, basal plasmacytosis and gland branching The findings are consistent with patient's history of ulcerative proctitis. moderate activity. No evidence of premalignant dysplasia. 02/01/2020 - 1209 CLINICAL DIAGNOSIS Urgency, bloating, gas, discharge 01/31/2020 - 113 GROSS DIAGNOSIS A - Received in formalin [...] sent-Canasa Procedures Date Code Description Status 01/30/2020 71313 Colonoscopy Flexible W/Biopsy Co mpleted Medical Devices Description No Information Available Encounters Type Date Location Provider Dx Diagnosis Office Visit 12/11/2019 1:30p Main Office Yordan Ross M.D. K 62.5 Hemorrhage of anus and rectum Assessments Date Code Description Provider 01/30/2020 K62.5 Hemorrhage of anus and rectum [...] AND ADDRESS REQUEST THANK YOU Created [address] [address] [phone] Nicolas Li M.D. PATIENT STATES HE HAS APPT W [facility] [place] 01-07 AND MAY BE REF TO [place]-DR ROSS WOULD LIKE TO SCHEDULE HIM A COLONOSCOPY BUT REALIZES HE NEEDS CARDIA CLEARANCE-PLEASE SNED AND NOTES AND PLEASE ADDRESS THIS REQUEST Created [address] [address] [phone]
--- OUTSIDE RECORDS SUMMARY | 2020-04-08 13:50 | CCD | Continuity of Care Document ---
Author Author Vic ROSS M.D. Organization Unknown Address [address] [place] [address] Phone [phone] Care Team Providers Care Director Of Occupational Therapy Name Role Phone Omari Wilde M.D. AUTM [phone] Problems Active Problems Provider Date Hemorrhage of [...] H/L Range Note Laboratory test finding 01/30/2020 [facility] [address] [place] [address] Pathology Request For Service (SEE NOTE) 1, 2 Laboratory test finding 01/30/2020 [facility] [address] [place] [address] Bedside Glucose 89 mg/dL Normal 80-115 1 [...] EVAL AND ADDRESS REQUEST THANK YOU Created [address] [address] [phone] Nicolas Li M.D. PATIENT STATES HE HAS APPT W [facility] 01-07 AND MAY BE REF TO [place]-DR ROSS WOULD LIKE TO SCHEDULE HIM A COLONOSCOPY BUT REALIZES HE NEEDS CARDIA CLEARANCE-PLEASE SNED AND NOTES AND PLEASE ADDRESS THIS REQUEST Created [address] [address] [phone]
--- OUTSIDE RECORDS SUMMARY | 2020-04-08 13:51 | CCD ---
Author Author [facility] Organization [facility] Address Unknown Phone Unavailable Care Team Providers Care Hot Roll Laminator Name Role Phone Tyrone Ross MD Unavailable Unavailable Tyrone Ross MD Unavailable Unavailable Tyrone Ross MD Unavailable Unavailable Tyrone Ross MD Unavailable Unavailable Tyrone Ross MD Unavailable Unavailable Tyrone Ross MD Unavailable Unavailable Tyrone Ross MD Unavailable Unavailable Tyrone Ross MD Unavailable Unavailable Tyrone Ross MD Unavailable Unavailable Tyrone Ross MD Unavailable Unavailable Tyrone Ross MD Unavailable Unavailable Tyrone Ross MD Unavailable Unavailable Tyrone Ross MD Unavailable Unavailable Tyrone Ross MD Unavailable Unavailable Tyrone Ross MD Unavailable Unavailable Tyrone Ross MD Unavailable Unavailable Tyrone Ross MD Unavailable Unavailable Tyrone Ross MD Unavailable Unavailable Tyrone Ross MD Unavailable Unavailable Tyrone Ross MD Unavailable Unavailable Tyrone Ross MD Unavailable Unavailable Tyrone Ross MD Unavailable Unavailable Tyrone Ross MD Unavailable Unavailable Tyrone Ross MD Unavailable Unavailable Tyrone Ross MD Unavailable Unavailable Tyrone Ross MD Unavailable Unavailable Tyrone Ross MD Unavailable Unavailable Tyrone Ross MD Unavailable Unavailable Tyrone Ross MD Unavailable Unavailable Tyrone Ross MD Unavailable Unavailable Tyrone Ross MD Unavailable Unavailable Tyrone Ross MD Unavailable Unavailable Tyrone Ross MD Unavailable Unavailable Tyrone Ross MD Unavailable Unavailable Tyrone Ross MD Unavailable Unavailable Tyrone Ross MD Unavailable Unavailable Tyrone Ross MD Unavailable Unavailable Tyrone Ross MD Unavailable Unavailable Tyrone Ross MD Unavailable Unavailable Tyrone Ross MD Unavailable Unavailable Tyrone Ross MD Unavailable Unavailable Tyrone Ross MD Unavailable Unavailable Tyrone Ross MD Unavailable Unavailable Tyrone Ross MD Unavailable Unavailable Tyrone Ross MD Unavailable Unavailable Tyrone Ross MD Unavailable Unavailable Tyrone Ross MD Unavailable Unavailable Tyrone Ross MD Unavailable Unavailable Tyrone Ross MD Unavailable Unavailable Tyrone Ross MD Unavailable Unavailable SYMENOW, G CHRISTOPHER PA Unavailable Unavailable SYMENOW, G CHRISTOPHER PA Unavailable Unavailable SYMENOW, G CHRISTOPHER PA Unavailable Unavailable SYMENOW, G CHRISTOPHER PA Unavailable Unavailable SYMENOW, G CHRISTOPHER PA Unavailable Unavailable SYMENOW, G CHRISTOPHER PA Unavailable Unavailable SYMENOW, G CHRISTOPHER PA Unavailable Unavailable SYMENOW, G CHRISTOPHER PA Unavailable Unavailable SYMENOW, G CHRISTOPHER PA Unavailable Unavailable SYMENOW, G CHRISTOPHER PA Unavailable Unavailable SYMENOW, G CHRISTOPHER PA Unavailable Unavailable SYMENOW, G CHRISTOPHER PA Unavailable Unavailable SYMENOW, G CHRISTOPHER PA Unavailable Unavailable SYMENOW, G CHRISTOPHER PA Unavailable Unavailable SYMENOW, G CHRISTOPHER PA Unavailable Unavailable SYMENOW, G CHRISTOPHER PA Unavailable Unavailable SYMENOW, G CHRISTOPHER PA Unavailable Unavailable MERRY, L ANGUS PA Unavailable Unavailable MERRY, L ANGUS PA Unavailable Unavailable MERRY, L ANGUS PA Unavailable Unavailable MERRY, L ANGUS PA Unavailable Unavailable MERRY, L ANGUS PA Unavailable Unavailable MERRY, L ANGUS PA Unavailable Unavailable MERRY, L ANGUS PA Unavailable Unavailable MERRY, L ANGUS PA Unavailable Unavailable MERRY, L ANGUS PA Unavailable Unavailable MERRY, L ANGUS PA Unavailable Unavailable MERRY, L ANGUS PA Unavailable Unavailable MERRY, L ANGUS PA Unavailable Unavailable MERRY, L ANGUS PA Unavailable Unavailable MERRY, L ANGUS PA Unavailable Unavailable MERRY, L ANGUS PA Unavailable Unavailable MERRY, L ANGUS PA Unavailable Unavailable MERRY, L ANGUS PA Unavailable Unavailable MERRY, L ANGUS PA Unavailable Unavailable MERRY, L ANGUS PA Unavailable Unavailable OSEI MENDOZA MD Unavailable Unavailable OSEI MENDOZA MD Unavailable Unavailable OSEI MENDOZA MD Unavailable Unavailable OSEI MENDOZA MD Unavailable Unavailable OSEI MENDOZA MD Unavailable Unavailable KELLYOSEI MD Unavailable Unavailable KELLYOSEI MD Unavailable Unavailable KELYLOSEI MD Unavailable Unavailable KELLYOSEI MD Unavailable Unavailable SHAWN, JUNITO EVANGELISTA MD Unavailable Unavailable SHAWN, PRYJMA JEAN CARLOS MD Unavailable Unavailable SHAWN, PRYJMA JEAN CARLOS MD Unavailable Unavailable SHAWN, PRYJMA JEAN CARLOS MD Unavailable Unavailable SHAWN, PRYJMA JEAN CARLOS MD Unavailable Unavailable SHAWN, PRYJMA JEAN CARLOS MD Unavailable Unavailable SHAWN, PRYJMA JEAN CARLOS MD Unavailable Unavailable SHAWN, PRYJMA JEAN CARLOS MD Unavailable Unavailable SHAWN, PRYJMA JEAN CARLOS MD Unavailable Unavailable SHAWN, PRYJMA JEAN CARLOS MD Unavailable Unavailable SHAWN, PRYJMA JEAN CARLOS MD Unavailable Unavailable SHAWN, PRYJMA JEAN CARLOS MD Unavailable Unavailable SHAWN, PRYJMA JEAN CARLOS MD Unavailable Unavailable SHAWN, PRYJMA JEAN CARLOS MD Unavailable Unavailable SHAWN, PRYJMA JEAN CARLOS MD Unavailable Unavailable SHAWN, PRYJMA JEAN CARLOS MD Unavailable Unavailable SHAWN, PRYJMA JEAN CARLOS MD Unavailable Unavailable SHAWN, PRYJMA JEAN CARLOS MD Unavailable Unavailable SHAWN, PRYJMA JEAN CARLOS MD Unavailable Unavailable SHWAN, PRYJMA JEAN CARLOS MD Unavailable Unavailable SHAWN, PRYJMA JEAN CARLOS MD Unavailable Unavailable SHAWN, PRYJMA JEAN CARLOS MD Unavailable Unavailable SHAWN, PRYJMA JEAN CARLOS MD Unavailable Unavailable SHAWN, PRYJMA JEAN CARLOS MD Unavailable Unavailable SHAWN, PRYJMA JEAN CARLOS MD Unavailable Unavailable SHAWN, GABINOYSuadMA JEAN CARLOS MD Unavailable Unavailable SHAWN, GABINOYJMA JEAN CARLOS MD Unavailable Unavailable SHAWN, GABINOYCONNER JEAN CARLOS MD Unavailable Unavailable Dara Wilde MD Unavailable Unavailable Dara Wilde MD Unavailable Unavailable Dara Wilde MD Unavailable Unavailable Dara Wilde MD Unavailable Unavailable Dara Wilde MD Unavailable Unavailable Dara Wilde MD Unavailable Unavailable Dara Wilde MD Unavailable Unavailable Dara Wilde MD Unavailable Unavailable Dara Wilde MD Unavailable Unavailable Dara Wilde MD Unavailable Unavailable Dara Wilde MD Unavailable Unavailable Dara Wilde MD Unavailable Unavailable Dara Wilde MD Unavailable Unavailable Dara Wilde MD Unavailable Unavailable Dara Wilde MD Unavailable Unavailable Dara Wilde MD Unavailable Unavailable Dara Wilde MD Unavailable Unavailable Dara Wilde MD Unavailable Unavailable Dara Wilde MD Unavailable Unavailable Dara Wilde MD Unavailable Unavailable Dara Wilde MD Unavailable Unavailable Dara Wilde MD Unavailable Unavailable Dara Wilde MD Unavailable Unavailable Dara Wilde MD Unavailable Unavailable Dara Wilde MD Unavailable Unavailable Dara Wilde MD Unavailable Unavailable Dara Wilde MD Unavailable Unavailable Dara Wilde MD Unavailable Unavailable Dara Wilde MD Unavailable Unavailable Dara Wilde MD Unavailable Unavailable Dara Wilde MD Unavailable Unavailable Dara Wilde MD Unavailable Unavailable Dara Wilde MD Unavailable Unavailable Dara Wilde MD Unavailable Unavailable Dara Wilde MD Unavailable Unavailable Dara Wilde MD Unavailable Unavailable Dara Wilde MD Unavailable Unavailable Dara Wilde MD Unavailable Unavailable Dara Wilde MD Unavailable Unavailable Dara Wilde MD Unavailable Unavailable Dara Wilde MD Unavailable Unavailable Dara Wilde MD Unavailable Unavailable Dara Wilde MD Unavailable Unavailable Dara Wilde MD Unavailable Unavailable Dara Wilde MD Unavailable Unavailable Dara Wilde MD Unavailable Unavailable Dara Wilde MD Unavailable Unavailable Dara Wilde MD Unavailable Unavailable Dara Wilde MD Unavailable Unavailable Dara Wilde MD Unavailable Unavailable Dara Wilde MD Unavailable Unavailable Dara Widle MD Unavailable Unavailable Dara Wilde MD Unavailable Unavailable Dara Wilde MD Unavailable Unavailable Dara Wilde MD Unavailable Unavailable Dara Wilde MD Unavailable Unavailable Dara Wilde MD Unavailable Unavailable Dara Wilde MD Unavailable Unavailable Dara Wilde MD Unavailable Unavailable Dara Wilde MD Unavailable Unavailable Dara Wilde MD Unavailable Unavailable Dara Wilde MD Unavailable Unavailable Dara Wilde MD Unavailable Unavailable Dara Wilde MD Unavailable Unavailable Dara Wilde MD Unavailable Unavailable Dara Wilde MD Unavailable Unavailable Dara Wilde MD Unavailable Unavailable Dara Wilde MD Unavailable Unavailable Dara Wilde MD Unavailable Unavailable Dara Wilde MD Unavailable Unavailable Dara Wilde MD Unavailable Unavailable Dara Wilde MD Unavailable Unavailable Schoeneman, Caprice DO Unavailable Schoeneman, [place] DO Unavailable Schoeneman, [place] DO Unavailable Schoeneman, Caprice DO Unavailable Schoeneman, [place] DO Unavailable Schoeneman, Caprice DO Unavailable Schoeneman, [place] DO Unavailable Schoeneman, [place] DO Unavailable Schoeneman, [place] DO Unavailable Schoeneman, [place] DO Unavailable Schoeneman, [place] DO Unavailable Schoeneman, [place] DO Unavailable Schoeneman, Caprice DO Unavailable Schoeneman, Caprice DO Unavailable Schoeneman, Caprice DO Unavailable Schoeneman, [place] DO Unavailable Schoeneman, [place] DO Unavailable Schoeneman, Caprice DO Unavailable Schoeneman, [place] DO Unavailable Schoeneman, Caprice DO Unavailable Schoeneman, Caprice DO Unavailable Schoeneman, [place] DO Unavailable Schoeneman, [place] DO Unavailable Schoeneman, [place] DO Unavailable Schoeneman, [place] DO Unavailable Schoeneman, [place] DO Unavailable Schoeneman, [place] DO Unavailable Schoeneman, Caprice DO Unavailable Schoeneman, Caprice DO Unavailable Schoeneman, Caprice DO Unavailable Schoeneman, Caprice DO Unavailable Schoeneman, [place] DO Unavailable Schoeneman, Caprice DO Unavailable Schoeneman, Cap[place] DO Unavailable Nasim Ponce MD Unavailable Unavaila ble MigeedNasim MD Unavailable Unavaila ble MigeedNasim MD Unavailable Unavaila ble MigeedNasim MD Unavailable Unavaila ble MigeedNasim MD Unavailable Unavaila ble MigeedNasim MD Unavailable Unavaila ble MigeedNasim MD Unavailable Unavaila ble MigeedNasim MD Unavailable Unavaila ble MigeedNasim MD Unavailable Unavaila ble MigeedNasim MD Unavailable Unavaila ble MigeedNasim MD Unavailable Unavaila ble MigeedNasim MD Unavailable Unavaila ble MigeedNasim MD Unavailable Unavaila ble MigeedNasim MD Unavailable Unavaila ble MigeedNasim MD Unavailable Unavaila ble MigeedNasim MD Unavailable Unavaila ble MigeedNasim MD Unavailable Unavaila ble MigeedNasim MD Unavailable Unavaila ble MigeedNasim MD Unavailable Unavaila ble MigeedNasim MD Unavailable Unavaila ble MigeedNasim MD Unavailable Unavaila ble MigeedNasim MD Unavailable Unavaila ble MigeedNasim MD Unavailable Unavaila ble MigeedNasim MD Unavailable Unavaila ble MigeedNasim MD Unavailable Unavaila ble MigeedNasim MD Unavailable Unavaila ble MigeedNasim MD Unavailable Unavaila ble MigeedNasim MD Unavailable Unavaila ble MigeedNasim MD Unavailable Unavaila ble MigeedNasim MD Unavailable Unavaila Nasim Cohen MD Unavailable Unavaila ble Nasim Ponce MD Unavailable Unavaila ble MigNasim simms MD Unavailable Unavaila ble Nasim Ponce MD Unavailable Unavaila Nasim Cohen MD Unavailable Unavaila Nasim Cohen MD Unavailable Unavaila ble MigeedNasim MD Unavailable Unavaila ble MigeedNasim MD Unavailable Unavaila ble Nasim Ponce MD Unavailable Unavaila ble MigeedNasim MD Unavailable Unavaila ble MigeedNasim MD Unavailable Unavaila Nasim Cohen MD Unavailable Unavaila ble MigeedNasim MD Unavailable Unavaila ble ORTIZ, TAYO PHILL PA Unavailable Unavailable ORTIZ, TAYO PHILL PA Unavailable Unavailable ORTIZ, TAYO PHILL PA Unavailable Unavailable ORTIZ, TAYO PHILL PA Unavailable Unavailable ORTIZ, TAYO PHILL PA Unavailable Unavailable ORTIZ, TAYO PHILL PA Unavailable Unavailable ORTIZ, TAYO PHILL PA Unavailable Unavailable ORTIZ, TAYO PHILL PA Unavailable Unavailable ORTIZ, TAYO PHILL PA Unavailable Unavailable ORTIZ, TAYO PHILL PA Unavailable Unavailable ORTIZ, TAYO PHILL PA Unavailable Unavailable ORTIZ, TAYO PHILL PA Unavailable Unavailable ORTIZ, TAYO PHILL PA Unavailable Unavailable ORTIZ, TAYO PHILL PA Unavailable Unavailable ORTIZ, TAYO PHILL PA Unavailable Unavailable ORTIZ, TAYO PHILL PA Unavailable Unavailable ORTIZ, TAYO PHILL PA Unavailable Unavailable ORTIZ, TAYO PHILL PA Unavailable Unavailable ORTIZ, TAYO PHILL PA Unavailable Unavailable ORTIZ, TAYO PHILL PA Unavailable Unavailable ORTIZ, TAYO PHILL PA Unavailable Unavailable ANTECOLKeren MD Unavailable Unavailable ANTECOLKeren MD Unavailable Unavailable ANTECOLKeren MD Unavailable Unavailable ANTECOLKeren MD Unavailable Unavailable ANTECOL, Keren PITTS MD Unavailable Unavailable ANTECOL, Keren PITTS MD Unavailable Unavailable ANTECOL, Keren PITTS MD Unavailable Unavailable ANTECOL, Keren PITTS MD Unavailable Unavailable ANTECOL, Keren PITTS MD Unavailable Unavailable ANTECOL, Keren PITTS MD Unavailable Unavailable ANTECOL, Keren PITTS MD Unavailable Unavailable ANTECOL, Keren PITTS MD Unavailable Unavailable ANTECOL, Keren PITTS MD Unavailable Unavailable ANTECOL, Keren PITTS MD Unavailable Unavailable ANTECOL, Keren PITTS MD Unavailable Unavailable ANTECOL, Keren PITTS MD Unavailable Unavailable ANTECOL, Keren PITTS MD Unavailable Unavailable ANTECOL, Keren PITTS MD Unavailable Unavailable ANTECOL, Keren PITTS MD Unavailable Unavailable ANTECOL, Keren PITTS MD Unavailable Unavailable ANTECOL, Keren PITTS MD Unavailable Unavailable ANTECOL, Keren PITTS MD Unavailable Unavailable ANTECOL, Keren PITTS MD Unavailable Unavailable ANTECOL, Keren PITTS MD Unavailable Unavailable ANTECOL, Keren PITTS MD Unavailable Unavailable ANTECOL, Keren PITTS MD Unavailable Unavailable ANTECOL, Keren PITTS MD Unavailable Unavailable ANTECOL, Keren PITTS MD Unavailable Unavailable ANTECOL, Keren PITTS MD Unavailable Unavailable ANTECOL, Keren PITTS MD Unavailable Unavailable ANTECOL, Keren PITTS MD Unavailable Unavailable ANTECOL, Keren PITTS MD Unavailable Unavailable ANTECOL, Keren PITTS MD Unavailable Unavailable ANTECOL, Keren PITTS MD Unavailable Unavailable ANTECOL, Keren PITTS MD Unavailable Unavailable ANTECOL, Keren PITTS MD Unavailable Unavailable ANTECOL, Keren PITTS MD Unavailable Unavailable ANTECOL, Keren PITTS MD Unavailable Unavailable ANTECOL, Keren PITTS MD Unavailable Unavailable ANTECOL, Keren PITTS MD Unavailable Unavailable ANTECOL, Keren PITTS MD Unavailable Unavailable ANTECOL, Keren PITTS MD Unavailable Unavailable ANTECOL, Keren PITTS MD Unavailable Unavailable ANTECOL, Keren PITTS MD Unavailable Unavailable ANTECOL, Keren PITTS MD Unavailable Unavailable ANTECOL, Keren PITTS MD Unavailable Unavailable ANTECOL, Keren PITTS MD Unavailable Unavailable ANTECOL, Keren PITTS MD Unavailable Unavailable ANTECOL, Keren PITTS MD Unavailable Unavailable ANTECOL, Keren PITTS MD Unavailable Unavailable ANTECOL, Keren PITTS MD Unavailable Unavailable ANTECOL, Keren PITTS MD Unavailable Unavailable ANTECOL, Keren PITTS MD Unavailable Unavailable ANTECOL, Keren PITTS MD Unavailable Unavailable ANTECOL, Keren PITTS MD Unavailable Unavailable Michael, Brigid Prince MD Unavailable Unavailable Michael, Brigid Prince MD Unavailable Unavailable Michael, Brigid Prince MD Unavailable Unavailable Michael, Brigid Prince MD Unavailable Unavailable Michael, Brigid Prince MD Unavailable Unavailable Michael, Brigid Prince MD Unavailable Unavailable Michael, Brigid Prince MD Unavailable Unavailable Michael, Brigid Prince MD Unavailable Unavailable Michael, Brigid Prince MD Unavailable Unavailable Michael, Brigid Prince MD Unavailable Unavailable Michael, Brigid Prince MD Unavailable Unavailable Michael, Brigid Prince MD Unavailable Unavailable Brigid Rodriguez MD Unavailable Unavailable MigeedNasim MD Unavailable Unavaila ble MigeedNaism MD Unavailable Unavaila ble Migeed, Nasim Diaz MD Unavailable Unavaila ble MigeedNasim MD Unavailable Unavaila ble Migeed, Nasim Diaz MD Unavailable Unavaila ble Migeed, Nasim Diaz MD Unavailable Unavaila ble Migeed, Nasim Diaz MD Unavailable Unavaila ble Migeed, Nasim Diaz MD Unavailable Unavaila ble Migeed, Nasim Diaz MD Unavailable Unavaila ble Migeed, Nasim Diaz MD Unavailable Unavaila ble Migeed, Nasim Diaz MD Unavailable Unavaila ble Migeed, Nasim Diaz MD Unavailable Unavaila ble Migeed, Nasim Diaz MD Unavailable Unavaila ble Migeed, Nasim Diaz MD Unavailable Unavaila ble Migeed, Nasim Diaz MD Unavailable Unavaila ble Migeed, Nasim Diaz MD Unavailable Unavaila ble Migeed, Nasim Diaz MD Unavailable Unavaila ble Migeed, Nasim Diaz MD Unavailable Unavaila ble Migeed, Nasim Diaz MD Unavailable Unavaila ble Migeed, Nasim Diaz MD Unavailable Unavaila ble Migeed, Nasim Diaz MD Unavailable Unavaila ble Migeed, Nasim Diaz MD Unavailable Unavaila ble MigeedNasim MD Unavailable Unavaila ble Migeed, Nasim Diaz MD Unavailable Unavaila ble Migeed, Nasim Diaz MD Unavailable Unavaila ble MigeedNasim MD Unavailable Unavaila ble MigeedNasim MD Unavailable Unavaila ble MigeedNasim MD Unavailable Unavaila ble MigeedNasim MD Unavailable Unavaila ble Migeed, Nasim Diaz MD Unavailable Unavaila ble MigeedNasim MD Unavailable Unavaila ble MigeedNasim MD Unavailable Unavaila ble MigeedNasim MD Unavailable Unavaila ble MigeedNasim MD Unavailable Unavaila ble MigeedNasim MD Unavailable Unavaila mariana MigeedNasim MD Unavailable Unavaila Nasim Cohen MD Unavailable Unavaila ble MigeedNasim MD Unavailable Unavaila ble MigeedNasim MD Unavailable Unavaila ble MigeedNasim MD Unavailable Unavaila ble MigeedNasim MD Unavailable Unavaila ble MigeedNasim MD Unavailable Unavaila ble MigeedNasim MD Unavailable Unavaila ble Werchinski, L Chhaya PA Unavailable Unavailable Werchinski, L Chhaya PA Unavailable Unavailable Werchinski, L Chhaya PA Unavailable Unavailable Werchinski, L Chhaya PA Unavailable Unavailable Werchinski, L Chhaya PA Unavailable Unavailable Werchinski, L Chhaya PA Unavailable Unavailable Werchinski, L Chhaya PA Unavailable Unavailable Werchinski, L Chhaya PA Unavailable Unavailable Werchinski, L Chhaya PA Unavailable Unavailable Werchinski, L Chhaya PA Unavailable Unavailable Werchinski, L Chhaya PA Unavailable Unavailable Werchinski, L Chhaya PA Unavailable Unavailable Werchinski, L Chhaya PA Unavailable Unavailable Werchinski, L Chhaya PA Unavailable Unavailable Werchinski, L Chhaya PA Unavailable Unavailable Werchinski, L Chhaya PA Unavailable Unavailable Werchinski, L Chhaya PA Unavailable Unavailable Werchinski, L Chhaya PA Unavailable Unavailable Werchinski, L Chhaya PA Unavailable Unavailable Werchinski, L Chhaya PA Unavailable Unavailable Werchinski, L Chhaya PA Unavailable Unavailable Werchinski, L Chhaya PA Unavailable Unavailable Werchinski, L Chhaya PA Unavailable Unavailable Werchinski, L Chhaya PA Unavailable Unavailable Werchinski, L Chhaya PA Unavailable Unavailable Werchinski, L Chhaya PA Unavailable Unavailable Werchinski, L Chhaya PA Unavailable Unavailable Werchinski, L Chhaya PA Unavailable Unavailable Werchinski, L Chhaya PA Unavailable Unavailable Werchinski, L Chhaya PA Unavailable Unavailable Werchinski, L Chhaya PA Unavailable Unavailable Citlaly Browning Unavailable Unavailable Re-disclosure Warning The records that you are about to access may contain information from federally-assisted alcohol or drug abuse programs. If such information is present, then the following federally mandated warning applies: This information has been disclosed to you from records protected by federal confidentiality rules (42 CFR part 2). The federal rules prohibit you from making any further disclosure of this information unless further disclosure is expressly permitted by the written consent of the person to whom it pertains or as otherwise permitted by 42 CFR part 2. A general authorization for the release of medical or other information is NOT sufficient for this purpose. The Federal rules restrict any use of the information to criminally investigate or prosecute any alcohol or drug abuse patient.The records that you are about to access may contain highly sensitive health information, the redisclosure of which is protected by Article 27-F of the [facility] Public Health law. If you continue you may have access to information: Regarding HIV / AIDS; Provided by facilities licensed or operated by the [facility] Office of Mental Health; or Provided by the [facility] Office for People With Developmental Disabilities. If such information is present, then the following [facility] mandated warning applies: This information has been disclosed to you from confidential records which are protected by state law. State law prohibits you from making any further disclosure of this information without the specific written consent of the person to whom it pertains, or as otherwise permitted by law. Any unauthorized further disclosure in violation of state law may result in a fine or detention sentence or both. A general authorization for the release of medical or other information is NOT sufficient authorization for further disc losure. Family History Family Member Name Family Member Gender Family Member Status Date o f Status Description Data Source(s) Unknown Male Problem MEDENT ([facility]) Encounters Encounter Providers Location Date Indications Data Source(s ) Office Visit Attender: Yordan Ross MD Main Office 10:30:00 AM EST [facility] ([facility] ) [place] [address] [address] 03/27/2020 12:00:00 AM EST eCW1 ([facility]) [place] [address] [address] 03/26/2020 12:00:00 AM EST [facility]CW1 [facility] [place] [address] [address] 03/25/2020 12:00:00 AM EST [facility] [place] [address] [facility] [address] 03/25/2020 12:00:00 AM EST [facility]CW1 [facility]) [place] [address] [facility] [address] 03/24/2020 12:00:00 AM EST [facility]CW1 ([facility]) Outpatient Attender: Emily Ponce MDAdmitter: Emily almazan MD [email or web address] 02/29/2020 06:58:00 AM EST - 02/29/2020 02:16:00 PM EST [facility] Patient discharged. [place] [address] [facility] [address] 02/27/2020 12:00:00 AM EST [facility]CW1 ([facility]) [place] [address] [facility] [address] 01/29/2020 12:00:00 AM EST eCW1 ([facility]) Outpatient Attender: Emily Ponce MD [facility] 01/10/2020 10:00:00 AM EST [facility] ([facility]) [place] [address] [address] 12/28/2019 12:00:00 AM EST eCW1 [facility]) [place] [address] [place] [address] 12/25/2019 12:00:00 AM EST eCW1 ([facility]) [place] [address] [facility] [address] [address] 12/19/2019 12:00:00 AM EDT eCW1 ([facility]) [place] [address] [place] [address] 12/19/2019 12:00:00 AM EDT [facility]CW1 ([facility]) Office Visit Attender: Yordan Ross MD Main Office 01:30:00 PM EDT [facility] ([facility] ) Outpatient Attender: GISSELLE LI MD Main Office 11/30/2019 10:45:00 AM EDT [facility] ([facility]) [place] [address] [facility] [address] [address] 11/23/2019 12:00:00 AM EDT eCW1 ([facility]) Emergency Attender: PHILL ALCANTAR PAReferrer: Omari Wilde MD EMERGENCY ROOM-ER 11/17/2019 02:19:00 PM EDT - 11/17/2019 03:30:00 PM EDT [facility] Patient discharged. [facility] [address] [facility] [address] [facility] [address] 10/09/2019 12:00:00 AM EDT eCW1 ([facility]) [place] [address] [place] [address] 09/04/2019 12:00:00 AM EDT eCW1 ([facility]) Unknown [address] [place] [address] 08/10/2019 12:00:00 AM EDT [facility]CW1 ([facility]) [place] [address] [facility] [address] [facility] [address] 08/06/2019 12:00:00 AM EDT eCW1 ([facility]) Outpatient [address] [place] [address] 08/03/2019 12:00:00 AM EDT eCW1 ([facility]) Unknown [address] [place] [address] 08/03/2019 12:00:00 AM EDT eCW1 ([facility]) [facility] [address] [place] [address] 07/02/2019 12:00:00 AM EDT eCW1 ([facility]) [facility] [place] [address] [facility] [address] 07/02/2019 12:00:00 AM EDT eCW1 ([facility]) [address], [facility] [address] 06/13/2019 12:00:00 AM EDT eCW1 ([facility]) Zoya Escobar MD ([place]) Zoya Escobar MD ([place]) 05/03/2019 12:00:00 AM EDT eCW1 (Navin Escobar MD ) Outpatient Attender: Chhaya Varelaerrghazal: Suresh Diamond 04/24/2019 07:50:00 AM EST - 04/24/2019 08:18:00 AM EST [address] [address] 03/19/2019 12:00:00 AM EST eCW1 ([facility]) [address] [address] 02/13/2019 12:00:00 AM EST eCW1 ([facility]) Outpatient Attender: JEAN CARLOS Bernabeerrghazal: Omari Wilde MD 11/16/2018 10:00:00 AM [facility] Outpatient Attender: JEAN CARLOS ESCOBAR MDReferrer: Omari Wilde MD 11/09/2018 09:00:00 AM [facility] Outpatient Attender: JEAN CARLOS BULLOCKeferrer: Omari Wilde MD 09/26/2018 09:00:00 AM [facility] Outpatient Attender: Caprice Haydenerrer: Omari smith MD 08/23/2018 01:30:00 PM [facility] Emergency Attender: ANGUS MENDOZA 05/22 11:04:00 AM EDT - 06/08/2018 12:13:00 PM [facility] Emergency Attender: PHILL MENDOZA 09:18:00 AM EST - 04/26/2018 09:59:00 AM [facility] Emergency Attender: ZOYA MENDOZA 04/24/2018 04:55:00 PM EST - 04/24/2018 06:53:00 PM [facility] Inpatient Attender: THIAGO MENDOZA MDAdmitter: THIAGO MENDOZA MD 04/19/2013 07:49:00 PM [facility] 04/20/2013 02:30:00 PM [facility] pital Immunizations Vaccine Date Status Description Data Source(s) influenza, recombinant, quadrIvalent,injectable, prese rvative free 11/23/2019 10:12:00 AM EDT completed eCW1 (Replaced by [facility]) influenza, recombinant, quadrIvalent,injectable, prese rvative free 11/23/2019 10:12:00 AM EDT completed eCW1 (Replaced by [facility]) influenza, recombinant, quadrIvalent,injectable, prese rvative free 11/23/2019 10:12:00 AM EDT completed eCW1 (Replaced by [facility]) influenza, recombinant, quadrIvalent,injectable, prese rvative free 11/23/2019 10:12:00 AM EDT completed eCW1 (Replaced by [facility]) influenza, recombinant, quadrIvalent,injectable, prese rvative free 11/23/2019 10:12:00 AM EDT completed eCW1 (Replaced by [facility]) influenza, recombinant, quadrIvalent,injectable, prese rvative free 11/23/2019 10:12:00 AM EDT completed eCW1 (Replaced by [facility]) influenza, recombinant, quadrIvalent,injectable, prese rvative free 11/23/2019 10:12:00 AM EDT completed eCW1 (Replaced by [facility]) influenza, recombinant, quadrIvalent,injectable, prese rvative free 11/23/2019 10:12:00 AM EDT completed eCW1 (Replaced by [facility]) influenza, recombinant, quadrIvalent,injectable, prese rvative free 11/23/2019 10:12:00 AM EDT completed eCW1 (Replaced by [facility]) influenza, recombinant, quadrIvalent,injectable, prese rvative free 11/23/2019 10:12:00 AM EDT completed eCW1 (Replaced by [facility]) influenza, recombinant, quadrIvalent,injectable, prese rvative free 11/23/2019 10:12:00 AM EDT completed eCW1 (Replaced by [facility]) influenza, recombinant, quadrIvalent,injectable, prese rvative free 11/23/2019 10:12:00 AM EDT completed eCW1 (Replaced by [facility]) influenza, recombinant, quadrIvalent,injectable, prese rvative free 11/23/2019 10:12:00 AM EDT completed eCW1 (Replaced by [facility]) Medications Medication Brand Name Start Date Product Form Dose Route Admi nistrative Instructions Pharmacy Instructions Status Indications Reaction Description Data Source(s) One touch ultra blue UNK 03/27/2020 12:00:00 AM EST active One touch ultra blue eCW1 ([facility]) One touch ultra blue UNK 03/27/2020 12:00:00 AM EST active One touch ultra blue eCW1 ([facility]) BLOOD SUGAR DIAGNOSTIC 03/27/2020 12:00:00 AM EST strip 200 TEST TWO TIMES A DAY DIRECTED TEST TWO TIMES A DAY DIRECTED SOLD: 03/27/2020 [facility] One touch ultra blue UNK 03/27/2020 12:00:00 AM EST active One touch ultra blue eCW1 ([facility]) One touch ultra blue UNK 03/27/2020 12:00:00 AM EST active One touch ultra blue eCW1 ([facility]) One touch ultra blue UNK 03/27/2020 12:00:00 AM EST active One touch ultra blue eCW1 ([facility]) Toujeo Max SoloStar 300 UNIT/ML Toujeo Max SoloStar 300 UNIT /ML 03/25/2020 12:00:00 AM EST active Toujeo M ax SoloStar 300 UNIT/ML eCW1 ([facility]) Toujeo Max SoloStar 300 UNIT/ML Toujeo Max SoloStar 300 UNIT /ML 03/25/2020 12:00:00 AM EST active Toujeo M ax SoloStar 300 UNIT/ML eCW1 ([facility]) Toujeo Max SoloStar 300 UNIT/ML Toujeo Max SoloStar 300 UNIT /ML 03/25/2020 12:00:00 AM EST active Fay Rainey ax SoloStar 300 UNIT/ML eCW1 ([facility]) Fay Max SoloStar 300 UNIT/ML Fay Max SoloStar 300 UNIT /ML 03/25/2020 12:00:00 AM EST active Fay Rainey ax SoloStar 300 UNIT/ML eCW1 ([facility]) Fay Max SoloStar 300 UNIT/ML Fay Max SoloStar 300 UNIT /ML 03/25/2020 12:00:00 AM EST active Fay Rainey ax SoloStar 300 UNIT/ML eCW1 ([facility]) 100 mcg/0.5 mL 03/13/2020 12:00:00 AM EST suspension 0 INJECT BY [facility] (FIRST DOSE) INJECT BY [facility] (FIRST DOSE) SOLD: 03/13/2020 [facility] lidocaine (PF) (XYLOCAINE-MPF) 1 % injection [id number] 09/2020 09:02:58 AM EST active As needed, Start ing Tue02/29/20 at 0902, Intra-Procedure [facility] Medication administered onsite 2 ML Midazolam 1 MG/ML Injection midazolam (VERSED) in jection midazolam (VERSED) injection 02/29/2020 08:58:24 AM EST active As needed, Starting Tue02/29/20 at 0858, Intra-Procedure [facility] Medication administered onsite fentaNYL Citrate (PF) (SUBLIMAZE) injection [id number] 02/29/2020 08:58:07 AM EST active As neede d, Starting Tue02/29/20 at 0858, Intra-Procedure [facility] Medication administered onsite 1,000 mg 02/07/2020 12:00:00 AM EST suppository 60 INSERT ONE SUPPOSITORY RECTALLY AT BEDTIME INSERT ONE SUPPOSITORY RECTALLY AT BEDTIME SOLD: 02/08/2020 [employer] mesalamine 1000 MG Rectal Suppository [Canasa] Canasa 01/30/2020 12:00:00 AM EST completed MEDENT ([facility]) 875-125 mg 12/19/2019 12:00:00 AM EDT tablet 20 TAKE ONE TABLET BY MOUTH EVERY 12 HOURS FOR 10 DAYS TAKE ONE TABLET BY MOUTH EVERY 12 HOURS FOR 10 DAYS SOLD: 12/19/2019 [facility] Amoxicillin 875 MG / Clavulanate 125 MG Oral Tablet Amoxicillin-Pot Clavulanate 875-125 MG Amoxicillin-Pot Clavulanate 875-125 MG 12/19/2019 12:00:00 AM ED T 1.0 {tablet} suspended Amoxicillin-Pot C lavulanate 875-125 MG eCW1 ([facility]) Amoxicillin 875 MG / Clavulanate 125 MG Oral Tablet Amoxicillin-Pot Clavulanate 875-125 MG Amoxicillin-Pot Clavulanate 875-125 MG 12/19/2019 12:00:00 AM ED T 1.0 {tablet} suspended Amoxicillin-Pot C lavulanate 875-125 MG eCW1 ([facility]) 500 mg 12/19/2019 12:00:00 AM EDT tablet 4 TAKE FOUR TABLETS BY MOUTH 1 HOUR PRIOR TO PROCEDURE TAKE FOUR TABLETS BY MOUTH 1 HOUR PRIOR TO PROCEDURE S OLD: 12/19/2019 [facility] Amoxicillin 875 MG / Clavulanate 125 MG Oral Tablet Amoxicillin-Pot Clavulanate 875-125 MG Amoxicillin-Pot Clavulanate 875-125 MG 12/19/2019 12:00:00 AM ED T 1.0 {tablet} active Amoxicillin-Pot Cla vulanate 875-125 MG eCW1 ([facility]) Amoxicillin 875 MG / Clavulanate 125 MG Oral Tablet Amoxicillin-Pot Clavulanate 875-125 MG Amoxicillin-Pot Clavulanate 875-125 MG 12/19/2019 12:00:00 AM ED T 1.0 {tablet} suspended Amoxicillin-Pot C lavulanate 875-125 MG eCW1 ([facility]) Amoxicillin 875 MG / Clavulanate 125 MG Oral Tablet Amoxicillin-Pot Clavulanate 875-125 MG Amoxicillin-Pot Clavulanate 875-125 MG 12/19/2019 12:00:00 AM ED T 1.0 {tablet} suspended Amoxicillin-Pot C lavulanate 875-125 MG eCW1 ([facility]) Amoxicillin 875 MG / Clavulanate 125 MG Oral Tablet Amoxicillin-Pot Clavulanate 875-125 MG Amoxicillin-Pot Clavulanate 875-125 MG 12/19/2019 12:00:00 AM ED T 1.0 {tablet} suspended Amoxicillin-Pot C lavulanate 875-125 MG eCW1 ([facility]) Amoxicillin 875 MG / Clavulanate 125 MG Oral Tablet Amoxicillin-Pot Clavulanate 875-125 MG Amoxicillin-Pot Clavulanate 875-125 MG 12/19/2019 12:00:00 AM ED T 1.0 {tablet} suspended Amoxicillin-Pot C lavulanate 875-125 MG eCW1 ([facility]) Amoxicillin 875 MG / Clavulanate 125 MG Oral Tablet Amoxicillin-Pot Clavulanate 875-125 MG Amoxicillin-Pot Clavulanate 875-125 MG 12/19/2019 12:00:00 AM ED T 1.0 {tablet} suspended Amoxicillin-Pot C lavulanate 875-125 MG eCW1 ([facility]) Amoxicillin 875 MG / Clavulanate 125 MG Oral Tablet Amoxicillin-Pot Clavulanate 875-125 MG Amoxicillin-Pot Clavulanate 875-125 MG 12/19/2019 12:00:00 AM ED T 1.0 {tablet} active Amoxicillin-Pot Cla vulanate 875-125 MG eCW1 ([facility]) Amoxicillin 875 MG / Clavulanate 125 MG Oral Tablet Amoxicillin-Pot Clavulanate 875-125 MG Amoxicillin-Pot Clavulanate 875-125 MG 12/19/2019 12:00:00 AM ED T 1.0 {tablet} suspended Amoxicillin-Pot C lavulanate 875-125 MG eCW1 ([facility]) Amoxicillin 875 MG / Clavulanate 125 MG Oral Tablet Amoxicillin-Pot Clavulanate 875-125 MG Amoxicillin-Pot Clavulanate 875-125 MG 12/19/2019 12:00:00 AM ED T 1.0 {tablet} suspended Amoxicillin-Pot C lavulanate 875-125 MG eCW1 ([facility]) Amoxicillin 875 MG / Clavulanate 125 MG Oral Tablet Amoxicillin-Pot Clavulanate 875-125 MG Amoxicillin-Pot Clavulanate 875-125 MG 12/19/2019 12:00:00 AM ED T 1.0 {tablet} suspended Amoxicillin-Pot C lavulanate 875-125 MG eCW1 ([facility]) 17.5-3.13-1.6 gram 12/12/2019 12:00:00 AM EDT recon soln 354 USE DIRECTED USE DIRECTED SOLD: 12/13/2019 [facility] Suprep Bowel Prep Kit Suprep Bowel Prep Kit 12/11/2019 12:00:00 AM EDT completed MEDENT ([facility]) 5 mg 12/10/2019 12:00:00 AM EDT tablet 180 TAKE ONE TABLET BY MOUTH TWICE A DAY TAKE ONE TABLET BY MOUTH TWICE A DAY SOLD: 12/13/2019 [facility] 5 mg 12/10/2019 12:00:00 AM EDT tablet 180 TAKE ONE TABLET BY MOUTH TWICE A DAY TAKE ONE TABLET BY MOUTH TWICE A DAY SOLD: 03/18/2020 [facility] Furosemide 40 MG Oral Tablet Furosemide 11/29/2019 12:00:00 AM EDT ORAL active MEDENT ([facility]) ezetimibe 10 MG Oral Tablet Ezetimibe 11/29/2019 12:00:00 AM EDT ORAL active MEDENT ([facility]) Pravastatin Sodium 80 MG Oral Tablet Pravastatin Sodium 09/2019 12:00:00 AM EDT ORAL active MEDENT ([facility]) Metformin hydrochloride 1000 MG Oral Tablet Metformin HCL 11/29/2019 12:00:00 AM EDT ORAL active MEDENT ([facility]) Metoprolol Tartrate 50 MG Oral Tablet Metoprolol Tartrate 12:00:00 AM EDT ORAL active MEDENT ([facility]) empagliflozin 25 MG Oral Tablet [Jardiance] Jardiance 11/29/2019 12:00:00 AM EDT ORAL active MEDENT ([facility]) Ramipril 10 MG Oral Capsule Ramipril 11/29/2019 12:00:00 AM EDT ORAL active MEDENT ([facility]) Esomeprazole 40 MG Delayed Release Oral Capsule Esomeprazole Magnesium 11/29/2019 12:00:00 AM EDT ORAL active [facility] ([facility]) 0.5 ML dulaglutide 3 MG/ML Auto-Injector [Trulicity] Trulici ty 11/29/2019 12:00:00 AM EDT active M EDENT ([facility]) 3 ML Insulin Glargine 100 UNT/ML Pen Injector [Lantus] Lantu s Solostar 11/29/2019 12:00:00 AM EDT active MEDENT ([facility]) apixaban 5 MG Oral Tablet [Eliquis] Eliquis 11/29/2019 12:00:00 AM E DT ORAL active MEDENT ([facility]) montelukast 10 MG Oral Tablet Montelukast Sodium 11/29/2019 12:00:00 AM EDT ORAL active MEDENT ([facility]) Meclizine Hydrochloride 25 MG Oral Tablet MECLIZINE HCL 11/17/2019 12:00:00 AM EDT tablet 20 TAKE ONE TABLET BY MOUTH SHIRA RY 6 HOURS NEEDED TAKE ONE TABLET BY MOUTH EVERY 6 HOURS NEEDED SOLD: 11/17/2019 [facility] 50 mg 11/14/2019 12:00:00 AM EDT tablet 60 TAKE ONE TABLET BY MOUTH TWO TIMES A DAY TAKE ONE TABLET BY MOUTH TWO TIMES A DAY SOLD: 11/14/2019 [facility] 5 mg 11/14/2019 12:00:00 AM EDT tablet 60 TAKE ONE TABLET BY MOUTH TWICE A DAY TAKE ONE TABLET BY MOUTH TWICE A DAY SOLD: 11/14/2019 [facility] 3 ML Insulin Glargine 100 UNT/ML Pen Inj christiana [Lantus] Lantus SoloStar 100 UNIT/ML Lantus SoloStar 100 UNIT/ML 08/14/2019 12:00:00 AM EDT active Lantus SoloStar 100 UNIT/ML eCW1 ([facility]) 3 ML Insulin Glargine 100 UNT/ML Pen Inj christiana [Lantus] Lantus SoloStar 100 UNIT/ML Lantus SoloStar 100 UNIT/ML 08/14/2019 12:00:00 AM EDT active Lantus SoloStar 100 UNIT/ML eCW1 ([facility]) 3 ML Insulin Glargine 100 UNT/ML Pen Inj christiana [Lantus] Lantus SoloStar 100 UNIT/ML Lantus SoloStar 100 UNIT/ML 08/14/2019 12:00:00 AM EDT active Lantus SoloStar 100 UNIT/ML eCW1 ([facility]) 3 ML Insulin Glargine 100 UNT/ML Pen Inj christiana [Lantus] Lantus SoloStar 100 UNIT/ML Lantus SoloStar 100 UNIT/ML 08/14/2019 12:00:00 AM EDT active Lantus SoloStar 100 UNIT/ML eCW1 ([facility]) 3 ML Insulin Glargine 100 UNT/ML Pen Inj christiana [Lantus] Lantus SoloStar 100 UNIT/ML Lantus SoloStar 100 UNIT/ML 08/14/2019 12:00:00 AM EDT active Lantus SoloStar 100 UNIT/ML eCW1 ([facility]) 3 ML Insulin Glargine 100 UNT/ML Pen Inj christiana [Lantus] Lantus SoloStar 100 UNIT/ML Lantus SoloStar 100 UNIT/ML 08/14/2019 12:00:00 AM EDT active Lantus SoloStar 100 UNIT/ML eCW1 ([facility]) 3 ML Insulin Glargine 100 UNT/ML Pen Inj christiana [Lantus] Lantus SoloStar 100 UNIT/ML Lantus SoloStar 100 UNIT/ML 08/14/2019 12:00:00 AM EDT active Lantus SoloStar 100 UNIT/ML eCW1 ([facility]) montelukast 10 MG Oral Tablet Montelukast Sodium 10 MG Clif lukast Sodium 10 MG 06/07/2019 12:00:00 AM EDT 1.0 {tablet} active Montelukast Sodium 10 MG eCW1 ([facility]) montelukast 10 MG Oral Tablet Montelukast Sodium 10 MG Clif lukast Sodium 10 MG 06/07/2019 12:00:00 AM EDT 1.0 {tablet} active Montelukast Sodium 10 MG eCW1 ([facility]) montelukast 10 MG Oral Tablet Montelukast Sodium 10 MG Clif lukast Sodium 10 MG 06/07/2019 12:00:00 AM EDT active 1 tablet eCW1 ([facility]) montelukast 10 MG Oral Tablet Montelukast Sodium 10 MG Clif lukast Sodium 10 MG 06/07/2019 12:00:00 AM EDT 1.0 {tablet} active Montelukast Sodium 10 MG eCW1 ([facility]) montelukast 10 MG Oral Tablet Montelukast Sodium 10 MG Clif lukast Sodium 10 MG 06/07/2019 12:00:00 AM EDT 1.0 {tablet} active Montelukast Sodium 10 MG eCW1 ([facility]) montelukast 10 MG Oral Tablet Montelukast Sodium 10 MG Clif lukast Sodium 10 MG 06/07/2019 12:00:00 AM EDT 1.0 {tablet} active Montelukast Sodium 10 MG eCW1 ([facility]) montelukast 10 MG Oral Tablet MONTELUKAST SODIUM 06/07/2019 12:0 0:00 AM EDT tablet 90 TAKE ONE TABLET BY MOUTH EVERY D AY TAKE ONE TABLET BY MOUTH EVERY DAY SOLD: 06/07/2019 [facility] montelukast 10 MG Oral Tablet Montelukast Sodium 10 MG Clif lukast Sodium 10 MG 06/07/2019 12:00:00 AM EDT 1.0 {tablet} active Montelukast Sodium 10 MG eCW1 ([facility]) montelukast 10 MG Oral Tablet Montelukast Sodium 10 MG Clif lukast Sodium 10 MG 06/07/2019 12:00:00 AM EDT 1.0 {tablet} active Montelukast Sodium 10 MG eCW1 ([facility]) montelukast 10 MG Oral Tablet Montelukast Sodium 10 MG Clif lukast Sodium 10 MG 06/07/2019 12:00:00 AM EDT 1.0 {tablet} active Montelukast Sodium 10 MG eCW1 ([facility]) montelukast 10 MG Oral Tablet Montelukast Sodium 10 MG Clif lukast Sodium 10 MG 06/07/2019 12:00:00 AM EDT active 1 tablet eCW1 ([facility]) montelukast 10 MG Oral Tablet Montelukast Sodium 10 MG Clif lukast Sodium 10 MG 06/07/2019 12:00:00 AM EDT 1.0 {tablet} active Montelukast Sodium 10 MG eCW1 ([facility]) Amoxicillin 500 MG Oral Capsule Amoxicillin 500 MG 03/19/2019 12:00 :00 AM EST active 2 capsule eCW1 ([facility]) 500 mg 03/19/2019 12:00:00 AM EST capsule 40 TAKE TWO CAPSULES BY MOUTH EVERY 12 HOURS FOR 10 DAYS TAKE TWO CAPSULES BY MOUTH EVERY 12 HOUR S FOR 10 DAYS SOLD: 03/19/2019 [facility] empagliflozin 25 MG Oral Tablet [Jardiance] Jardiance 25 MG Jardiance 25 MG 02/13/2019 12:00:00 AM EST 1.0 {tablet} active Jardiance 25 MG eCW1 ([facility]) empagliflozin 25 MG Oral Tablet [Jardiance] Jardiance 25 MG Jardiance 25 MG 02/13/2019 12:00:00 AM EST 1.0 {tablet} active Jardiance 25 MG eCW1 ([facility]) empagliflozin 25 MG Oral Tablet [Jardiance] Jardiance 25 MG Jardiance 25 MG 02/13/2019 12:00:00 AM EST active 1 tablet eCW1 ([facility]) empagliflozin 25 MG Oral Tablet [Jardiance] Jardiance 25 MG Jardiance 25 MG 02/13/2019 12:00:00 AM EST 1.0 {tablet} active Jardiance 25 MG eCW1 ([facility]) empagliflozin 25 MG Oral Tablet [Jardiance] Jardiance 25 MG Jardiance 25 MG 02/13/2019 12:00:00 AM EST 1.0 {tablet} active Jardiance 25 MG eCW1 ([facility]) empagliflozin 25 MG Oral Tablet [Jardiance] Jardiance 25 MG Jardiance 25 MG 02/13/2019 12:00:00 AM EST 1.0 {tablet} active Jardiance 25 MG eCW1 ([facility]) 25 mg 02/13/2019 12:00:00 AM EST tablet 90 TAKE ONE TABLET BY MOUTH EVERY DAY TAKE ONE TABLET BY MOUTH EVERY DAY SOLD: 02/13/2019 [facility] empagliflozin 25 MG Oral Tablet [Jardiance] Jardiance 25 MG Jardiance 25 MG 02/13/2019 12:00:00 AM EST 1.0 {tablet} active Jardiance 25 MG eCW1 ([facility]) empagliflozin 25 MG Oral Tablet [Jardiance] Jardiance 25 MG Jardiance 25 MG 02/13/2019 12:00:00 AM EST active 1 tablet eCW1 ([facility]) empagliflozin 25 MG Oral Tablet [Jardiance] Jardiance 25 MG Jardiance 25 MG 02/13/2019 12:00:00 AM EST 1.0 {tablet} active Jardiance 25 MG eCW1 ([facility]) empagliflozin 25 MG Oral Tablet [Jardiance] Jardiance 25 MG Jardiance 25 MG 02/13/2019 12:00:00 AM EST 1.0 {tablet} active Jardiance 25 MG eCW1 ([facility]) empagliflozin 25 MG Oral Tablet [Jardiance] Jardiance 25 MG Jardiance 25 MG 02/13/2019 12:00:00 AM EST 1.0 {tablet} active Jardiance 25 MG eCW1 ([facility]) empagliflozin 25 MG Oral Tablet [Jardiance] Jardiance 25 MG Jardiance 25 MG 02/13/2019 12:00:00 AM EST active 1 tablet eCW1 ([facility]) 25 mg 02/13/2019 12:00:00 AM EST tablet 90 TAKE ONE TABLET BY MOUTH EVERY DAY TAKE ONE TABLET BY MOUTH EVERY DAY SOLD: 05/14/2019 [facility] Insurance Providers Payer name Policy type / Coverage type Policy ID Covered democrat ID Covered democrat's relationship to ambrocio Policy Ambrocio Plan Information [place] 302/307 [id number] SP [id number] MEDICARE [id number] SP [id number] [place] P[place] 302/307 [id number] SP [id number] EXCELLUS BCBS 03 MEDICARE [id number] EXCELLUS BCBS [id number] Caitlin [id number] [id number] MEDICARE [id number] Caitlin [id number] [id number] [place] PPO 302/307 [id number] SP [id number] MEDICARE C [id number] S [id number] EXCELLUS BCBS B [id number] S [id number] MEDICARE BLUE PPO 306 [id number] SP [id number] [place] [id number] S [id number] [id number] [employer] MEDICARE DIVISION [id number] S [id number] MEDICARE - [place] [id number] S [id number] AETNA MEDICARE [id number] SP MEBSG C2C AETNA HEALTH INC [id number] S MEB [id number] BCBS [place] [id number] S [id number] AETNA HEALTH INC [id number] S MEB [id number] MEDICARE BLUE PPO [id number] SP [id number] AETNA MEDICARE [id number] S MEBSG C2C AETNA MEDICARE [id number] S MEBSG C2C AETNA [id number] S [id number] ANSI-Commercial [id number] ANSI-Commercial [id number] ANSI-Medicare Part B [id number] ANSI-Commercial [id number] ANSI-Commercial [id number] ANSI-Medicare Part B [id number] ANSI-Medicare Part B [id number] ANSI-Commercial [id number] ANSI-Commercial [id number] A[place] MED[place]ARE [place] [id number] MEBSG C2C ANSI-Medicare Part B [id number] ANSI-Commercial [id number] ANSI-Commercial [id number] MEDICARE PART A [place] [id number] 18 [id number] BLUE [employer] BLUE [employer] [place] [id number] ANSI-Commercial [id number] ANSI-Commercial [id number] ANSI-Medicare Part B [id number] ANSI-Commercial [id number]-39vs-uzw2-6o1f4250d28g ANSI-Commercial by6k8g38-124i-5508-5a82-2yx17z6j3i11 co0z1s03-139n-7378-7w43-8qv06e2h6h89 ANSI-Commercial 6j2xq432-0g8q-01k0-s2r6-43935d1m8085 4j9ra850-3j4x-22m7-q5u4-12730x6e6778 ANSI-Commercial 102v1y4y-t0jc-92o6-8ftc-2t50exr03kac 568g2x7g-x5gz-22c3-3mxg-2e15emh88sdp BS [place] [facility] Part B [id number] Self [id number] [facility] Part B [id number] Self [id number] BS [place] [facility] [id number] Self [id number] ANSI-Commercial [id number]-ich3-5of1-[id number] 3f128d96-ocz6-3gr5-s052-40zo8982033y ANSI-Commercial 5098y87n-3791-3r63-g422-58bed3b18i9g 0359j17p-1010-3e99-v947-06dvi3q44p8n [employer] [place] PPO 302/307 [id number] SP [id number] ANSI-Commercial 13o99q4k-084q-2u26-m953-8q9809d0hc1t 24t05w3u-756v-7o15-m804-7e4609x6jb8l ANSI-Commercial 0o24rd78-6881-5emn-8ja8-pp282s69p47a 2m24ex35-8382-7nfj-5ze6-xg213k53y83g ANSI-Commercial 3264w086-8us0-8h4m-qs93-7560l275tyu3 7373w856-7fj6-2p1u-cz94-1487n670ghw3 ANSI-Commercial [id number]-id24-64it-rf02-b4721g42p7s4 [id number] BS [place] Med[place] Part B [id number] Self [id number] [employer] ([facility]) Medigap Part B [id number] Self [id number] BS [place] Commercial [id number] Self [id number] BS [place] Med[place] Part B [id number] Self [id number] [employer] ([facility]) Medigap Part B [id number] Self [id number] [place] [id number] Self [id number] BS [place] Med[employer] Part B [id number] Self [id number] [employer] ([facility]) Medigap Part B [id number] Self [id number] BS [place] [id number] Self [id number] BS [place] Med[employer] Part B [id number] Self [id number] [employer] ([facility]) Medigap Part B [id number] Self [id number] BS [place] Commercial [id number] Self [id number] [employer]CE[employer] BCBS B [id number] S [id number] [employer] BCBS B [id number] S [id number] [place]/307 [id number] SP [id number] [place]/307 [id number] SP [id number] [facility] IMPROVE. LEAGU O [id number] S [id number] [id number] SP [id number] [employer] [id number] SP [id number] SELF PAY ONLY UNAVAILABLE UNAV AILABLE BCBS OF [place] 280/780 [id number] SP [id number] SELF PAY UNAVAILABLE SP UNAVAILA [employer]ANCE [id number] SP [id number] [facility] COMM CONTR [id number] S [id number] [place]BS [place]/307 [id number] SP [id number] Problems, Conditions, and Diagnoses Code Display Name Description Problem Type Effective Dates Data Source(s) 57994451 Ulcerative colitis Ulcerative colitis Problem 10/2020 12:00:00 AM EST [facility] ([facility]) E78.00 206995151 Pure hypercholesterolemia, unspecified Pr oblem 02/27/2020 12:00:00 AM EST eCW1 ([facility]) I48.3 Typical atrial flutter Typical atrial flutter [id number] 01/23/2020 12:00:00 AM EST [facility] Z85.820 [id number] History of melanoma Problem 12/28/2019 12:00 :00 AM EST eCW1 ([facility]) Z85.89 [id number] History of squamous cell carcinoma Prob adeel 12/28/2019 12:00:00 AM EST eCW1 ([facility]) Z85.828 387739831 History of basal cell carcinoma Problem 12/28/2019 12:00:00 AM EST eCW1 ([facility]) I87.2 66991004 Stasis dermatitis of both legs Problem 12/28/2019 12:00:00 AM EST eCW1 ([facility]) [id number] Hemorrhage of rectum and anus Hemorrhage of rectum and anus Problem 12/11/2019 12:00:00 AM EDT [facility] ([facility]) 1710119 Atrial flutter Atrial flutter Problem 11/30/2019 12:00: 00 AM EDT [facility] ([facility]) 78674367 Essential hypertension Essential hypertension Problem 11/30/2019 12:00:00 AM EDT [facility] ([facility]) [id number] Pure hypercholesterolemia Pure hypercholesterolemia Pr oblem 11/30/2019 12:00:00 AM EDT [facility] ([facility]) [id number] Obesity Obesity Problem 11/30/2019 12:00:00 AM ED T [facility] ([facility]) 576739029 Dietary management surveillance Dietary manageme nt surveillance Problem 11/30/2019 12:00:00 AM EDT [facility] ([facility] 44530721 Right bundle branch block AND left anter ior fascicular block Right bundle branch block AND left anterior fascicular block Problem 11/30/2019 12:00:00 AM EDT [facility] ([facility]) 93976873 Snoring Snoring Problem 11/30/2019 12:00:00 AM ED T [facility] ([facility]) I48.92 5066039 Unspecified atrial flutter Problem 0 12:00:00 AM EDT eCW1 ([facility]) I48.91 [id number] Unspecified atrial fibrillation Problem 11/23/2019 12:00:00 AM EDT eCW1 ([facility]) J30.2 Seasonal allergic rhinitis Seasonal michelle rgic rhinitis, unspecified trigger Problem 06/07/2019 12:00:00 AM EDT eCW1 ([facility]) J30.2 Seasonal allergic rhinitis Seasonal michelle rgic rhinitis, unspecified trigger Problem 06/07/2019 12:00:00 AM EDT eCW1 ([facility]) I89.0 [id number] Lymph edema Problem 05/03/2019 12:00:00 AM E DT eCW1 ([facility]) I48.3 Typical atrial flutter Typical atrial flutter Diagnosi s 02/29/2020 06:58:00 AM EST [facility] Z87.891 Personal history of nicotine dependence PERSONAL HISTORY OF NICOTINE DEPENDENCE Diagnosis 11/17/2019 02:19:00 PM EDT [facility] Z79.899 Other usp (current) drug therapy O THER NURSING HOME (CURRENT) DRUG THERAPY Diagnosis 11/17/2019 02:19:00 PM [facility] Z79.84 NURSING HOME (CURRENT) USE OF ORAL HYPOGLYC EMIC DRUGS PROGRAM DEVELOPMENT SPECIALIST (CURRENT) USE OF ORAL HYPOGLYCEMIC DRUGS Diagnosis 11/17/2019 02:19:00 PM [facility] Z79.01 intermission coordinator (current) use of anticoagulant s NURSING HOME (CURRENT) USE OF ANTICOAGULANTS Diagnosis 11/17/2019 02:19:00 PM [facility] Z79.4 intermission coordinator (current) use of insulin PROGRAM DEVELOPMENT SPECIALIST (CU RRENT) USE OF INSULIN Diagnosis 11/17/2019 02:19:00 PM [facility] E03.9 Hypothyroidism, unspecified HYPOTHYROIDISM, UNSPECIFIE D Diagnosis 11/17/2019 02:19:00 PM [facility] H81.11 Benign paroxysmal vertigo, right ear STEFANIE IGN PAROXYSMAL VERTIGO, RIGHT EAR Diagnosis 11/17/2019 02:19:00 PM [facility] I10 Essential (primary) hypertension ESSENTIAL (PRIMARY) H YPERTENSION Diagnosis 11/17/2019 02:19:00 PM [facility] E78.00 PURE HYPERCHOLESTEROLEMIA, UNSPECIFIED P URE HYPERCHOLESTEROLEMIA, UNSPECIFIED Diagnosis 11/17/2019 02:19:00 PM [facility] E11.9 Type 2 diabetes mellitus without complic ations TYPE 2 DIABETES MELLITUS WITHOUT COMPLICATIONS Diagnosis 11/17/2019 02:19:00 PM [facility] I48.92 Unspecified atrial flutter UNSPECIFIED ATRIAL FLUTTER Diagnosis 11/17/2019 02:19:00 PM [facility] R42 Dizziness and giddiness DIZZINESS AND GIDDINESS Diagno sis 11/17/2019 02:19:00 PM [facility] Surgeries/Procedures Procedure Description Date Indications Data Source(s) EP STUDY EP STUDY Routine 02/29/2020 9:25 AM EST Typical atrial flutter 02/29/2020 02:25:10 PM EST Typical atrial flutter [facility] Typical atrial flutter GLUC BLD GLUC MNTR DEV CLEARED FDA SPEC HOME USE POCT GLUCOSE Routine 02/29/2020 8:31 AM EST 02/29/2020 01:31:00 PM EST [facility] ECG ROUTINE ECG W/LEAST 12 LDS TRCG ONLY W/O I&R ECG 12-LEAD Routine 02/29/2020 8:03 AM EST 02/29/2020 01:03:39 PM EST [facility] COLONOSCOPY W/BIOPSY SINGLE/MULTIPLE 01/30/2020 12:00: 00 AM EST [facility] ([facility]) Electrocardiogram Complete 01/10/2020 12:00:00 AM EST [facility] ([facility]) ECHO TTHRC R-T 2D W/WOM-MODE COMPL SPEC&COLR DOP 01/07 12:00:00 AM EST [facility] ([facility]) ECG ROUTINE ECG W/LEAST 12 LDS W/I&R 11/30/2019 12:00: 00 AM EDT [facility] ([facility]) Arterial Pressure Waveform Analysis For Assessment Of Centra l Art 11/30/2019 12:00:00 AM EDT [facility] ([facility]) Immunization: Flublok Quadrivalent (18 years & older) 0.5mL IM (Influenza) 11/23/2019 12:00:00 AM EDT eCW1 ([facility]) Office Visit, Est Pt., Level 2 FC 07/02/2019 12:00:00 AM EDT eCW1 ([facility]) Office Visit, Est Pt., Level 3 PC 07/02/2019 12:00:00 AM EDT eCW1 ([facility]) TeleMedicine Est. Pt. Level 3 06/07/2019 12:00:00 AM E DT eCW1 ([facility]) NJX SCLEROSING SOLUTION MULTIPLE VEINS SAME LEG 2019 12:00:00 AM EDT eCW1 ([facility]) Results ID Date Data Source [id number] 04/03/2020 01:00:00 PM EST [facility] Name Value Range Interpretation Code Description Data Cris rce(s) Supporting Document(s) SARS coronavirus 2 RNA Not Detected [facility] This lab was ordered by [facility] and reported by [facility]. ID Date Data Source [id number] 02/29/2020 09:45:16 AM EST [facility] Name Value Range Interpretation Code Description Data Cris rce(s) Supporting Document(s) &PDF [facility] KMVRRi9cNlZTGkBj63/BROobLEFqt1CuJCxiWIu3CKlvODPoY4LynCsxBLGFL8sIREdVV92bOIDEYs9t yKE [file] ID Date Data Source [id number] 02/29/2020 09:10:55 AM EST [facility] Name Value Range Interpretation Code Description Data Cris rce(s) Supporting Document(s) EKG [facility] JGOOGi1zUsQUBdMuv4IhAjPzHKExLY0qttw0U2V1nLEhR9GcrNIuw6lmK6PvX9JzHXNvBWASAT4QrPPp jb2 [file] naFbcDhLdIwq3U/jn5iSR7ZpYkCK4gimuesjsTyx+IxJ2n50/9h89/special distribution clerk+RF+xPmn//+H//685fNP//f X58bn//9+c958X//9Z/+8df/8o//+qd7+/OP/+uv//Yxl7lwF3w01Q+u5s///bf//Nec7Y/F5z//+nMv 5/r89+8///5nzB5LbhIpE7mb2T+NXW5Ye+/g+r1lcs qkPUhoHp93clQuPrjV6SdNOTtfyImuVwMKLsXyZp+Uzscbr1d2lMeTyM8b9+VSL6/5rycM72f02FzlqR ye3hLyIoUeWt9y7hm4Dm7i8Dw6jbJa37r3mZmi3afWv14c2gYzihiwU027tZaJyqEkhqD2EuRyA+o1ar 3E3EyQyl1p37k0QkDiSxc0sI7b2djTyUth08E0aCvb JnHurP0P0kVhchiHy3U6PoeDgVEyXYFAU3JpQlf2sM9a1ohWxDskT4n3tmGvrL3U5iKKf4g3YfqE2JeA 1Ct+VxEKlhcryViQxDrSpeODb3d0Xk9JnowwOs3p2Tj1XhybmLf2ooIc7Gwpfrl4bqHp1Pz0ccUm7Btk ngsk5wuCu50qheCos4AvH600jruWhk3rnb871oAxO+ f3b9XsYy7qrJ8C25S4GkhIgaR1Rt5P66ScXxiK03g6Ml5MzZeyTa2l1Yp2QuyypR1I5NAa/7hHHDcr2z V7Gl4b11/s9RN9ai/ew7JKuv3W3U5O6GUpKfgboAvPNC28zT0/7VeN9U6piBXKmymWAJfoRvs26NeZWA Ubo2PSAsmaOaOU/LKRQkd++IgpIbEfRmJKScx/uVYh Wz/9ONigZ8zPgRlOTpNlvQl8r33YoKi7eHYZqpL//BSPaWtICsInWPwNRJoWqqJpWabx3X46qgmYI8Vk sHf5a5QLvLe8rWLMgaS/fMWUsNgPYzGlLPbDWUxJi/2wFlPaYj+2iQN88V4oVbBy2pOiDBkP/bAXU/pi P/aQjUDJB9YdoEV9g2VNYOw3hMuULjPg153Q7TXQSP XK2A+YVKDy1nJyXGiA/wAGR6AfH3zMqIYTF6jgYPC9p3wWvU519CwRMjTbHiOWvv5yC0FfPw/iioCt4K +/XZO18bWsZYcO/SChD9SgInwUyKqHT74uMJv9b8CTjY63gO0XmhG/kFkG2daZ4qMoYBsLeOsyi/1wHl PSYz+nj0O42H/vMSU+1jS3XFpD/XAfU/JjP+zHlP7Y D/4iZTC7x7HRFBY8bZUMEwA/XRsSIzuLOpYqPnzBbOlqpZ1uJPSbVL1gmVPT7T0pkpLT/sOHXPmQ//Ah Yo1tQ6lLpZ/4Ut4i7DQ+w4dc+ZD/8CFXPuQ/fMiVD/xJY7RlT/8Sj2o4eW/wIVc+1T77vNHF+C9oyiZK /sOHXPmQ//XjNr2uV4sAmS/57/dERfP4RjAkXqG/rhea 4uQVI23UAp0/ff49TFhs+KssGW62pGFuWassrqhrETTv3c4JE+w4dc+ZD/8CFXPuQ/fMiVD/vGH0JtT/ 9Zf4r2dK/wIVc+0P91mOTW+U6qzhHD/sOHXPmQ//AzOj2mX2jXiN/7Yo9b5LP+w4dc+ZD/8CFXPuQ/fM iVD/cWI0AqZ/1Ps2f6yZ/wIVc+7M40uFIM+E2jugHU /sOHXPmQ//IfHw3zN0zTbM/3Ye8m6LK+w4dc+ZD/8CFXPuQ/fMiVD/xOA6XdQ/3Rp7w8mH/wIVc+5D98 yJUP+V7kfiKN/sOHXPmQ//Ss1HUUjjqLm9nmms18ak23rghUvjlbiMWT8I1cah39uy3Qiklgehy9dw3A +rjWx7U+tgMhsI9yrmlEx9g0roiuq3259nafmexKg9 l2nyuss6963dqdmhaFa2o1utvio79N6fcfzXoDU8w1afJxvE8A3bjgyXoEA7e4wzAdrP5B8atjfRkUN5 n1thVjis0o0okymwzAD1o7irKuwe6d9dxzajcJw/SsqfWZWp+l0Xcwf5N2eXFcoG8l9EhxQ8j5XdlWTb /Q+oTWJ7Q+cpVWxW5xjVEeW4wtreIPFb+n5Xryo9L5 WVqfpfVZWp+p3Tbpd9M0JTvjbaIORc+d1Lhjk0811DxbhkFAHm+n9dhvj8960AazgtFJMw+a8owbj842 2VqfrfXZWp+n0Scca3W4DTiji/U5Wp+b3Ytuc5L6TYmsc/U5Wp+u5Rdss1N5XVsdXPN/P8Ri9V1Mw44p 5SQmu9ub7Vsf8wa2GmaCauLVaoQWQvmYZkbJtodI3a vvadtsF3R+SfnylI4E2hovpedvS8Y+FfoDpGTbHfN8MGGR8GOnM2LIhFJVADGQFJWAFuuYBMIpkWVT0I LZjKAEBiLGAgtrSlrYjEG8SHRZFWGFEpuWPAAdaJTK0WXTACCNRoUSFukkXYiXfSSpFPNpRFOLWysNVP BjyB9A7PmCXBGFcpTTPryaJGSLrrDCBTAeVNOKTgyI [file] rcBFS3wAu518ruX514+47KLJ7dKllUa8+211DP13/u VvzSS64Y0UZxl8sGd51cbYadxbttWaL94f7tw9hiDS9ylHPNLbqexeLm2su11+fP/95X/+zigin444+N ffX/7rh8u3/341E+nb310+retQj3gE2647v5E6xARgL9/86kWNvbvjbjH/+ZHZL97zAC5dp2U3Vd0kTK 1nd4g2XA/b0//PscE4jYk2c5yMBOpYp0hzUk1+fuHR Xdx9FoMV+21y1RC73N5pqm/Eo0NgKjgya7Lzdb40HA4gdkkNzBjjmHW58PS0yZGbxXJ53mKTzjM98c3F X768/PTul/r86h9VYvNrRUf1uA7sh94xX8n+50uv7f2vf4+/basketball referee/pH+8+/MbNZ3/cv7l2/s8lIc3p37+D [file] QmLkOOG7vvHf5rZnXaWSDTK4Sfh9LdAXDlGCHGHt7+VdU7OAM8bYVqYrw5CZD5XnxaFWBARq== ID Date Data Source [id number] 02/29/2020 08:32:55 AM EST [facility] Name Value Range Interpretation Code Description Data Cris rce(s) Supporting Document(s) POC NOVA GLU 135 mg/dL (70-99) [facility] [place] [facility] CLINICAL STAFF ID Date Data Source [id number] 02/29/2020 08:25:59 AM EST [facility] NT INFORMATIONPatient MRN Name Date of Age Gend*PT [id number] Nilesh Reyes Jr. 1950 69 years M [facility] Location Admission Date/Time Visit ID Attending ProviderCV02/29/20 0658 --- Brigid Ponce MD([id number]) EPI ID CSN Admitting Provider [id number] Brigid Ponce MD([id number])Inpatient History & PhysicalLeon Brigid Reyes Jr. : here for flutter RFAPast Medical History:Past Medical History:Diagnosis Date Atrial flutter Hyperlipidemia Hypertension MelanomaPast Surgical History:Past Surgical History:Procedure Laterality Date BACK SURGERY REPLACEMENT TOTAL KNEE Right TOE SURGERY GROWTH REMOVEDMedications:Medications Prior to AdmissionMedication Sig Dispense Refill Last Dose Acetaminophen (ACETAMIN PO) Take 650 mg by mouth every 4 (four) hours asneeded Past Month at Unknown time Apixaban (ELIQUIS) 5 MG TABS tablet Take 5 mg by mouth 2 (two) times a day02/29/2020 at Unknown time Dulaglutide (TRULICITY) 1.5 MG/0.5ML SOPN Inject 1.5 mg under the skin once aweek TAKES ON FRIDAYS Past Week at Unknown time Empagliflozin (JARDIANCE) 25 MG TABS Take 25 mg by mouth daily 02/29/2020 atUnknown time ESOMEPRAZOLE MAGNESIUM PO Take 40 mg by mouth nightly 02/28/2020 at Un knowntime ezetimibe (ZETIA) 10 MG tablet Take 10 mg by mouth daily 02/28/2020 at Unknowntime furosemide (LASIX) 40 MG tablet Take 40 mg by mouth daily 02/29/2020 atUnknown time insulin glargine (LANTUS) 100 UNIT/ML injection Inject 60 Units under the skindaily 30 UNITS THIS AM 02/29/2020 at Unknown time metFORMIN (GLUCOPHAGE) 1000 MG tablet Take 1,000 mg by mouth 2 (two) times aday with meals 02/29/2020 at Unknown time metoprolol tartrate (LOPRESSOR) 50 MG tablet Take 50 mg by mouth daily02/29/2020 at Unknown time Multiple Vitamin (ESSENTIAL ONE DAILY PO) Take by mouth daily 02/28/2020 atUnknown time Multiple Vitamins-Minerals (OCUVITE ADULT 50+ PO) Take 1 capsule by mouthdaily pravastatin (PRAVACHOL) 80 MG tablet Take 80 mg by mouth daily 02/29/2020 atUnknown time ramipril (ALTACE) 10 MG capsule Take 10 mg by mouth daily 02/29/2020 atUnknown timeAllergies:Patient has no known drug allergies.Family History:No family history on file.Social History:Social HistoryTobacco Use Smoking status: Former Smoker Types: Cigarettes Last attempt to quit: 1998 Years since quittin.0 Smokeless tobacco: Never UsedSubstance Use Topics Alcohol use: Yes Comment: OCCASIONALLY 1 GLASS OF WINE Drug use: Not Currently Comment: 55 YEARS AGO SMOKED MARIJUANAReview of Systems:Pertinent positives as mentioned in the HPI. Denies recent fever, chills, orchange in appetite. Denies unilateral weakness, numbness, slurred speech, orfacial droop. Denies any hematemesis, hematochezia, or melena. Denies nausea,vomiting, diarrhea, or abdominal pain. All other systems were reviewed and theremainder are negative.Physical Exam:Vital Signs: Temp: [97.1 F] 97.1 FHeart Rate: [79] 79Resp: [16] 16BP: (125)/(76) 125/76A 9 body area/organ physical examination was performed.General: patient in NAD.HEENT: NC/AT, sclerae anicteric, moist mucous membranes.Neck: Supple. No thyromegaly was appreciated.Lungs: CTAB, without rales, rhonchi, or wheezes.CV: The JVP is <8 cm while sitting upright.Abd: Soft, NT, ND.Extremities: No pitting edema, cyanosis or clubbing.Skin: Warm & dry, without jaundice or bruising.Psych: A&O x3, affect appropriate.ASSESSMENT:1. Sx Typical Flutter, on Eliquis2. RBBB / LAFB3. HTN/HLD/DM4. OSA5. ObesityPlan:1. Typical flutter RFAProcedure was discussed with patient / family risks, benefits, andalternatives explained. Potential risks include but not limited to pain,bleeding, infection, injury to any body system or organ between the skin andheart (including the skin, subcutaneous tis megan, blood vessels, abdominal organs,heart, and lungs), phrenic nerve injury and diaphragmatic paralysis, possibleneed for a heart surgery or pacemaker implantation, heart attack, stroke, oreven .Signature: Brigid Ponce, MDDate: February 29, 2020Time: 8:23 AM Name Value Range Interpretation Code Description Data Cris rce(s) Supporting Document(s) ID Date Data Source [id number] 02/27/2020 12:00:00 AM EST eCW1 ([facility]) Name Value Range Interpretation Code Description Data Cris rce(s) Supporting Document(s) Albumin/Creatinine [Mass Ratio] in Urine 7.1 MALB URINE SIEMENS eCW1 ([facility]) Microalbumin/Creatinine [Mass Ratio] in Urine < 13.0 CREATININE, URINE eCW1 ([facility]) Microalbumin/Creatinine [Ratio] in Urine 54.0 0.0-30.0 OLIVER/CREAT RATIO eCW1 ([facility]) ID Date Data Source LIPID PANEL (CARDIAC RISK) 02/27/2020 12:00:00 AM EST eCW1 ( [facility]) Name Value Range Interpretation Code Description Data Cris rce(s) Supporting Document(s) Cholesterol [Moles/volume] in Serum or Plasma 150 <200 CHOLESTEROL LEVEL eCW1 ([facility]) Triglyceride [Mass/volume] in Serum or Plasma by calculation 76 <150 TRIGLYCERIDES LEVEL eCW1 ([facility]) 93 NON-HDL-C eCW1 (Replaced by [facility]) Cholesterol in HDL [Moles/volume] in Serum or Plasma 57 >40 HDL CHOLESTEROL eCW1 ([facility]) Cholesterol in LDL [Mass/volume] in Serum or Plasma by calculation 78 <100 LDL CHOLESTEROL eCW1 ([facility]) 2.631 <5 CHOLESTEROL RISK RATIO eCW1 ([facility]) ID Date Data Source [id number] 02/27/2020 12:00:00 AM EST eCW1 ([facility]) Name Value Range Interpretation Code Description Data Cris rce(s) Supporting Document(s) Hemoglobin A1c/Hemoglobin.total in Blood 7.4 HEMOGLOBIN A1c eCW1 ([facility]) ID Date Data Source Comprehensive Metabolic Profile (CMP) 02/27/2020 12:00:00 AM EST eCW1 ([facility]) Name Value Range Interpretation Code Description Data Cris rce(s) Supporting Document(s) 78 70-100 GLUCOSE, FASTING eCW1 ([facility]) 142 136-145 SODIUM LEVEL eCW1 ([facility]) 1.05 0.70-1.30 CREATININE FOR GFR eCW1 ([facility]) 19 7-18 BLOOD UREA NITROGEN eCW1 ([facility]) > 60.0 >49 GLOMERULAR FILTRATION RATE eCW 1 ([facility]) 106 98-107 CHLORIDE LEVEL eCW1 ([facility]) 4.1 3.5-5.1 POTASSIUM SERUM eCW1 ([facility]) 9.1 8.8-10.2 CALCIUM LEVEL eCW1 ([facility]) 26 12-78 ALT/SGPT eCW1 ([facility]placed by [facility]) 30 21-32 CARBON DIOXIDE LEVEL eCW1 ([facility]) 14 7-37 AST/SGOT eCW1 ([facility]placed by [facility]) 0.7 0.2-1.0 BILIRUBIN,TOTAL eCW1 ([facility]) 7.3 6.4-8.2 TOTAL PROTEIN eCW1 ([facility]) 4.4 3.2-5.2 ALBUMIN eCW1 (Replaced by [facility]) 90 45-117 ALKALINE PHOSPHATASE eCW1 ([facility]) 1.5 ALBUMIN/GLOBULIN RATIO eCW1 ([facility]) ID Date Data Source [id number] 02/24/2020 09:00:00 AM EST [facility] Name Value Range Interpretation Code Description Data Cris rce(s) Supporting Document(s) SARS coronavirus 2 RNA [facility] This lab was ordered by [facility] and reported by [facility]. ID Date Data Source [id number] 01/30/2020 01:57:00 PM EST [facility] ([facility]) Name Value Range Interpretation Code Description Data Cris rce(s) Supporting Document(s) Surgical pathology study Laboratory test result [facility] ([facility]) FINAL DIAGNOSIS A-Colon, cecal polyp, polypectomy: Tubular adenoma, fragments. B-Rectal biopsy: Colorectal mucosa with showing surface erosion, cryptitis, epithelitis, rare crypt abscess, basal plasmacytosis and gland branching The findings are consistent with patient's history of ulcerative proctitis. moderate activity. No evidence of premalignant dysplasia. 02/01/2020 - 120 CLINICAL DIAGNOSIS Urgency, bloating, gas, discharge 01/31/2020 - 1134 GROSS DIAGNOSIS A - Received in formalin labeled "cecal polyp" and consists of a fragment of tissue 0.1 x 0.1 x 0.1 cm. All in one. B - Received in formalin labeled "rectal biopsy" and consists of fragments of tissue 0.2 x 0.1 x 0.1 cm. All in one. -OA 01/31/2020 - 1134 Signed ESSENCE SALAZAR MD 02/01/2020 1210 ID Date Data Source [id number] 01/30/2020 12:19:00 PM EST [facility] ([facility]) Name Value Range Interpretation Code Description Data Cris rce(s) Supporting Document(s) Glucose [Mass/volume] in Capillary blood by Glucometer 89 mg/dL 80- 115 [facility] ([facility]) ID Date Data Source [id number] 01/25/2020 12:30:00 PM EST [facility] Name Value Range Interpretation Code Description Data Cris rce(s) Supporting Document(s) SARS coronavirus 2 RNA [facility] This lab was ordered by [facility] and reported by [facility]. ID Date Data Source [id number] 11/17/2019 04:47:00 PM EDT [facility] DATE OF EXAMINATION: 11/17/2019 14:06 EDT CHEST 1 VIEW HISTORY: Dizziness and irregular heart rate TECHNIQUE: Single frontal radiograph of chest COMPARISON: 06/08/2018 FINDINGS: No evidence of focal consolidation, pneumothorax or large pleural effusion.Lungs are clear. Mediastinal structures are unremarkable. No aggressive osseouslesions. IMPRESSION: Minimal bibasilar atelectasis Electronically signed in PS[facility] by: Albina Natarajan M.D. 11/17/2019 16:42 EDT Name Value Range Interpretation Code Description Data Cris rce(s) Supporting Document(s) ID Date Data Source [id number] 11/17/2019 04:07:00 PM EDT [facility] Patient: NILESH REYES Observation Rep ort - Phys[facility].VisitID: [id number] [place] [address] [phone], MRegistration Date/Time: 11/17/2019 13:44 Weight:110.2 kg (S). Height/Length:71 inches. BMI:33.9 PAST HISTORYProblems:Eustachian Tube Dysfunction.Fall.Diabetes Mellitus.Acute Pain.Costochondritis.Hypercholesterolemia.Rib Fracture.Sinusitis.Recent Travel.Hypertension.Laceration.Atrial Flutter. Additional Surgeries:Back Surgery.Knee Surgery. Medications:Ocuvite Oral 1 tab, daily, last dose .Trulicity Subcutaneous (Solution Pen-injector 1.5 mg/0.5mL), once a week, last dose .Lantus Subcutaneous 60 units, daily, last dose .Eliquis Oral (Tablet 5 mg) 1 tablet, 2x a day, last dose .Ramepril 10 mg, daily, last dose .Montelukast Sodium Oral (Tablet 10 mg) 1 tablet, daily, last dose .Esomeprazole Magnesium Oral (Capsule Delayed Release 40 mg) 1 capsule, daily, last dose .Furosemide Oral (Tablet 40 mg) 1 tablet, daily, last dose .Jardiance Oral (Tablet 25 mg) 1 tablet, daily, last dose .Ezetimibe Oral (Tablet 10 mg) 1 tablet, daily, last dose .Provastatin 80 mg, daily, last dose .MetFORMIN HCl Oral (Tablet 1000 mg) 1 tablet, 2x a day, last dose (Blood glucose 120 this morning at home).Metoprolol Tartrate Oral 50 mg, daily, last dose . Allergies:No Known Environmental Allergies. FAMILY HISTORYNo significant family medical history. (Electronically signed by Phill Alcantar, P.AMitzi 11/17/2019 15:40) Name Value Range Interpretation Code Description Data Cris rce(s) Supporting Document(s) ID Date Data Source [id number] 11/17/2019 03:04:00 PM [id number] Name Value Range Interpretation Code Description Data Cris rce(s) Supporting Document(s) TSH 5.10 uIU/mL 0.36-3.74 [facility] [facility] ID Date Data Source [id number] 11/17/2019 02:59:00 PM [facility]T [facility] [id number] Name Value Range Interpretation Code Description Data Cris rce(s) Supporting Document(s) MAGNESIUM 2.0 mg/dL 1.8-2.4 [facility] ID Date Data Source [id number] 11/17/2019 02:59:00 PM EDT [facility] TSYSORDER [id number] Name Value Range Interpretation Code Description Data Cris rce(s) Supporting Document(s) TROPONIN I < 0.017 ng/mL 0.0-0.056 [facility] ID Date Data Source [id number] 11/17/2019 02:59:00 PM EDT [facility] TSYSORDER [id number] Name Value Range Interpretation Code Description Data Cris rce(s) Supporting Document(s) CREATINE PHOSPHOKINASE 164 U/L 39-308 [facility] ID Date Data Source [id number] 11/17/2019 02:59:00 PM EDT [facility] TSYSORDER [id number] Name Value Range Interpretation Code Description Data Cris rce(s) Supporting Document(s) LIPASE 165 U/L 73-393 [facility] ID Date Data Source [id number] 11/17/2019 02:59:00 PM EDT [facility] TSYSORDER [id number] Name Value Range Interpretation Code Description Data Cris rce(s) Supporting Document(s) GLUCOSE 151 mg/dL 74-106 H [facility] BLOOD UREA NITROGEN 25 mg/dL 7-18 H [facility] ital CREATININE 1.3 mg/dL 0.7-1.3 [facility] SODIUM 138 mmol/L 136-145 [facility] POTASSIUM 4.2 mmol/L 3.5-5.1 [facility] CHLORIDE 104 mmol/L 98-107 [facility] CO2 27 mmol/L 21-32 [facility] CALCIUM 9.0 mg/dL 8.5-10.1 [facility] ANION GAP 7.0 mmol/L 5-12 [facility] GLOMERULAR FILTRATION RATE 55 mL/min [facility] GFR IS CALCULATED IN mL/min/1.73m2 AKASH L FUNCTION: >90MILDLY DECREASED: 60-89MILDY TO MODERATELY DECREASED: 45-59 MODERATELY TO SEVERELY DECREASED: 30-44SEVERELY DECREASED: 15-29RENAL FAILURE: <15 AST 20 U/L 15-37 [facility] ALT 23 U/L 12-78 [facility] ALKALINE PHOSPHATASE 82 U/L 46-116 [facility] TOTAL BILIRUBIN 0.5 mg/dL 0.2-1.0 [facility] TOTAL PROTEIN 7.2 g/dl 6.4-8.2 [facility] ALBUMIN 4.4 gm/dL 3.4-5.0 [facility] ID Date Data Source [id number] 11/17/2019 02:54:00 PM EDT [facility] TSYSORDER [id number] Name Value Range Interpretation Code Description Data Cris rce(s) Supporting Document(s) PARTIAL THROMBOPLASTIN TIME 27.2 SECONDS 21.4-30.2 [facility] ID Date Data Source [id number] 11/17/2019 02:54:00 PM EDT [facility] TSYSORDER [id number] Name Value Range Interpretation Code Description Data Cris rce(s) Supporting Document(s) PROTHROMBIN TIME (PATIENT) 10.2 SECONDS 9.2-11.6 [facility] INR 0.98 0.87-1.06 [facility] ID Date Data Source [id number] 11/17/2019 02:35:00 PM T [facility] TSYSORDER [id number] Name Value Range Interpretation Code Description Data Cris rce(s) Supporting Document(s) WHITE BLOOD COUNT 8.4 K/mm3 4.0-10.0 [facility] RED BLOOD COUNT 5.24 M/mm3 4.50-6.00 [facility] HEMOGLOBIN 15.7 gm/dL 14.0-18.0 [facility] HEMATOCRIT 47.5 % 42.0-54.0 [facility] MEAN CELL VOLUME 90.6 fl 80-96 [facility] MEAN CORPUSCULAR HEMOGLOBIN 30.0 pg 27.0-31.0 [facility] MEAN CORPUSCULAR HGB CONC 33.1 g/dl 32.0-36.0 [facility] RED CELL DISTRIBUTION WIDTH 13.9 % 10.0-14.5 [facility] PLATELET COUNT 227 K/mm3 172-450 [facility] MEAN PLATELET VOLUME 10.1 fl 9.0-13.0 [facility] GRAN % 66.0 % 50-80.0 [facility] IG% 0.2 % 0.0-0.2 [facility] LYMPH % 25.3 % 25.0-50.0 [facility] MONO % 7.3 % 2.0-10.0 [facility] EOS % 0.7 % 0-5.0 [facility] BASO % 0.5 % 0.0-2.0 [facility] GRAN # 5.5 K/mm3 2.0-8.00 [facility] IG# 0.0 K/mm3 0.0-0.2 [facility] LYMPH # 2.1 K/mm3 1.0-5.0 [facility] MONO # 0.6 K/mm3 0.10-1.20 [facility] EOS # 0.1 K/mm3 0.0-0.5 [facility] BASO # 0.0 K/mm3 0.0-0.2 [facility] ID Date Data Source [id number] 11/14/2019 11:10:00 AM EDT [facility]) Name Value Range Interpretation Code Description Data Cris rce(s) Supporting Document(s) Natriuretic peptide.B prohormone N-Terminal [Mass/volu me] in Serum or Plasma 161 [facility] ([employer] [facility]) Free T4 0.89 [facility] Thyroid Stimulating Hormone 4.270 ME DENT ([facility]) ID Date Data Source [id number] 11/14/2019 11:10:00 AM EDT [facility] Name Value Range Interpretation Code Description Data Cris rce(s) Supporting Document(s) White Blood Count 7.9 4.0-10.0 [facility] ([facility]) Red Blood Count 5.35 4.30-6.10 [facility] ([facility]) Platelets 240 172-450 [facility] ([facility]) Hemoglobin 16.2 [facility] ([facility]) Hematocrit 49.7 [facility] ([facility]) ID Date Data Source [id number] 11/14/2019 11:10:00 AM EDT [facility]) Name Value Range Interpretation Code Description Data Cris rce(s) Supporting Document(s) Albumin [Mass/volume] in Serum or Plasma 4.0 [facility] ([facility]) Bilirubin.total [Mass/volume] in Serum or Plasma 0.2 [facility] ([facility]) Aspartate aminotransferase [Enzymatic activity/volume] in Serum or Plasma 20 [facility] ([facility]) Alkaline phosphatase [Enzymatic activity/volume] in Serum or Plasma 8 6 [facility] ([facility]) Alanine aminotransferase [Enzymatic activity/volume] in Serum or Pl asma 22 [facility] ([facility]) Protein [Mass/volume] in Serum or Plasma 7.1 [facility] ([facility]) ID Date Data Source [id number] 06/08/2019 11:04:00 AM EDT [facility] ([facility]) Name Value Range Interpretation Code Description Data Cris rce(s) Supporting Document(s) Hemoglobin A1c/Hemoglobin.total in Blood 7.5 [facility] ([facility]) ID Date Data Source [id number] 06/08/2019 11:04:00 AM EDT [facility] ([facility]) Name Value Range Interpretation Code Description Data Cris rce(s) Supporting Document(s) Glucose 168 70-100 [facility] Blood Urea Nitrogen 26 7-18 [facility] ([facility]) Creatinine 1.26 70-1.30 [facility] ([facility]) Sodium 141 136-145 [facility] Potassium 4.4 3.5-5.1 [facility] ([facility] Carbon Dioxide 27 21-32 [facility] ([facility]) Chloride 106 98-107 [facility] Calcium 8.3 8.2-9.6 [facility] ([facility]) Glomerular filtration rate/1.73 sq M.pre dicted [Volume Rate/Area] in Serum or Plasma by Creatinine-based formula (MDRD) Laboratory test result [facility] ([facility]) ID Date Data Source [id number] 04/24/2019 07:54:00 AM [facility] Patient Name: NILESH REYES Brigid REGAN : 1950 Sex: M Pt Unit #: [id number] Location:AMB.DERM Provider: Visit Date/Time: 04/24/19 Primary Insurance: AET[employer] Secondary Insurance: Self Pay Intake Vital Signs 3 04/24/19 07:57 BP 118/72 Blood Pressure Location Lt brachial Position Sitting Pulse 84 Pulse Oximetry (%) 98 Oxygen Delivery Method room air Intake Visit Reasons: Full Body Skin Exam Is patient in pain?: No Allergies No Known Drug Allergies Allergy (Verified 04/24/19 08:02) Medications dulaglutide (Trulicity) 1.5 mg subcut 1XW esomeprazole magnesium 40 mg PO DAILY furosemide (Lasix) 2 tabs PO DAILY glucagon (human recombinant) (GlucaGen HypoKit) 1 mg IJ 1T PRN insulin degludec (Tresiba FlexTouch U-200 insulin) 90 units subcut DAILY metformin 1 tab PO BID metoprolol tartrate (Lopressor) 1 tab PO DAILY pravastatin (Pravachol) 1 tab PO DAILY ramipril (Altace) 1 cap PO DAILY PFSH - Derm Social History Does the Patient have a Healthcare Proxy: No Does Patient have a DNR?: No Does Patient have a Living Will?: No Pertinent Past History Pertinent Past History Previous skin cancer: basal cell carcinoma (Left ear 2010 Dr. Marcos. ) and malignant melanoma (Dr. Gallegos) Family history of nonmelanoma skin cancer: No Family history with melanoma: No Date of last full body scan:: Dermatology HPI History of Present Illness Details:: Patient presents to the dermatology clinic for full body exam/skin cancer screening with hx of MM and BCC Current Symptoms Chief Complaint:: AK Location: face Symptoms: other (red scaly ) Severity of symptoms: mild Treatments tried: LN2 Treatment response: better Skin care goals for today' visit: To have full body exam Dermatology ROS Constituitional Reports system reviewed and no additional complaints, except as documented Psych Reports system reviewed and no additional complaints, except as documented Additional Derm History of Melanoma: annual eye exam (Dec 2018 next one 05/2019); negative for Oncology follow up, headaches, new lumps/bumps and annual [employer] exam Dermatology Exam Constitutional General appearance: comfortable Orientation Orientation: alert and oriented x 3 Skin Skin exam performed including: hair, scalp, face, eyelids, nose, lips, neck, chest, abdomen, back, right arm, right hand, fingers, left arm, left hand, right leg, right foot, left leg, left foot, toes, buttocks and axillae Face and Body: 1. Scattered Crooks Angiomas 2. AK 3. SK 4. scar s/p MM, NER Psych Appearance: grossly normal Mental Status: mental status grossly normal Speech and Movement: speech and movement normal Mood: congruent mood Affect: normal affect Attitude: cooperative Thought Proc ess: normal Thought Content: normal Insight: insight good Judgment: judgment good Office Procedures Liquid Nitrogen Cryotherapy Details: LN2 cryotherapy performed in office today to AK x1 R preauricular. Cryocare instructions given. ABN and Consent form signed. Treatment options, risks, benefits, and side effects reviewed (including but not limited to: scar, infection, pain, need for repeat treatment). Patient instructed to contact the office if the lesiondoes not completely resolve after treatment/recurs. Assessment Plan Assessment Plan (1) Screening for Malignant Neoplasm of Skin: Code(s): Z12.83 - Encounter for screening for malignant neoplasm of skin Plan - KELLY Tristan: Reviewed sign and symptoms of skin cancer, including ABCDEs of melanoma. Discussed the importance of sunscreen, avoidance of tanning beds and excessive UV exposure. Explained the importance of monthly self skin examinations. Recommend skin cancer screenings on a yearly basis. (2) Hx of basal cell carcinoma: Code(s): Z85.828 - Personal history of other malignant neoplasm of skin Plan - KELLY Tristan: No evidence of recurrence noted. (3) Hx of melanoma of skin: Code(s): Z85.820 - Personal history of malignant melanoma of skin Plan - KELLY Tristan: No evidence of recurrence, no repigmentation, no palpable lymphadenopathy. Pt denies new lumps/bumps, headaches, or new lesions. Discussed importance of photoprotection and sunscreen use. Discussed need for monthly self skin examinations and routine skin cancer screening. Explained to pt that first line relatives (parents, siblings, children) are at an increased risk for melanoma and should be screened. (4) Seborrheic keratoses: Code(s): L82.1 - Other seborrheic keratosis Plan - Chhaya Browning PA: Explained to patient benign nature of lesions, tx deferred. (5) Actinic keratoses: Code(s): L57.0 - Actinic keratosis Plan - KELLY Tristan: CRYO x1 (6) Crooks angioma: Code(s): I78.1 - Nevus, non-neoplastic Plan - KELLY Tristan: Explained to patient benign nature of lesions, tx deferred. Orders Follow Up: yrly Electronically Signed By: <Electronically signed by Chhaya MENDOZA> Date/Time Signed: 04/24/19817 Name Value Range Interpretation Code Description Data Cris rce(s) Supporting Document(s) Procedure Social History Code Duration Value Status Description Data Source(s ) Alcohol intake 02/29/2020 12:00:00 AM EST Yes completed [facility] Smoking 02/29/2020 12:00:00 AM EST Former smoker completed Former smoker [facility] Smoking 02/27/2020 12:00:00 AM EST Former Smoker completed Former Smoker eCW1 ([facility]) Smoking 02/27/2020 12:00:00 AM EST Former Smoker completed Former Smoker eCW1 ([facility]) Smoking 02/27/2020 12:00:00 AM EST Former Smoker completed Former Smoker eCW1 ([facility]) Smoking 02/27/2020 12:00:00 AM EST Former Smoker completed Former Smoker eCW1 ([facility]) Smoking 02/27/2020 12:00:00 AM EST Former Smoker completed Former Smoker eCW1 ([facility]) Smoking 02/27/2020 12:00:00 AM EST Former Smoker completed Former Smoker eCW1 ([facility]) Smoking 02/27/2020 12:00:00 AM EST Former Smoker completed Former Smoker eCW1 ([facility]) Smoking 12/28/2019 12:00:00 AM EST Former Smoker completed Former Smoker eCW1 ([facility]) Smoking 12/28/2019 12:00:00 AM EST Former Smoker completed Former Smoker eCW1 ([facility]) Smoking 12/28/2019 12:00:00 AM EST Former Smoker completed Former Smoker eCW1 ([facility]) Smoking 12/25/2019 12:00:00 AM EST Former Smoker completed Former Smoker eCW1 ([facility]) Smoking 12/19/2019 12:00:00 AM EDT Former Smoker completed Former Smoker eCW1 ([facility]) Smoking 11/30/2019 12:00:00 AM EDT Patient is a former smoker completed Patient is a former smoker [facility] ([facility]) Smoking 11/23/2019 12:00:00 AM EDT Former Smoker completed Former Smoker eCW1 ([facility]) Smoking 08/03/2019 12:00:00 AM EDT Former Smoker completed Former Smoker eCW1 ([facility]) Smoking 08/03/2019 12:00:00 AM EDT Former Smoker completed Former Smoker eCW1 ([facility]) Smoking 08/03/2019 12:00:00 AM EDT Former Smoker completed Former Smoker eCW1 ([facility]) Smoking 08/03/2019 12:00:00 AM EDT Former Smoker completed Former Smoker eCW1 ([facility]) Vital Signs ID Date Data Source UNK Name Value Range Interpretation Code Description Data Source(s) Body temperature 97.8 [degF] 97.8 [degF] [facility] ([facility]) Body weight 111.132 kg 111.132 kg [facility] ([facility]) Body mass index (BMI) [Ratio] 34.2 kg/m2 34.2 k g/m2 [facility] ([facility]) Heart rate 78 /min 78 /min [facility]) Diastolic blood pressure 79 mm[Hg] 79 mm[Hg] [facility] ([facility]) Systolic blood pressure 133 mm[Hg] 133 mm[Hg] M EDENT ([facility]) Body weight 245.00 [lb_av] 245.00 [lb_av] MEDEN T ([facility]) Body height 71 [in_i] 71 [in_i] [facility] ([facility]) 5'11" Oxygen saturation in Arterial blood by Pulse oximetry 92 % 92 % [facility] Respiratory rate 16 /min 16 /min [facility] Body temperature 36.67 [place] 36.67 [place] [facility] Heart rate 70 /min 70 /min [facility] Diastolic blood pressure 80 mm[Hg] 80 mm[Hg] [facility] Systolic blood pressure 132 mm[Hg] 132 mm[Hg] [facility] Body mass index (BMI) [Ratio] 33.61 kg/m2 33.61 kg/m2 [facility] Body weight 109.317 kg 109.317 kg [facility] Body height 180.3 cm 180.3 cm [facility] Diastolic blood pressure 80 mm[Hg] 80 mm[Hg] eCW1 ([facility]) Systolic blood pressure 130 mm[Hg] 130 mm[Hg] e CW1 ([facility]) Body temperature 98 [degF] 98 [degF] eCW1 ([facility]) Respiratory rate 18 /min 18 /min eCW1 ([facility]) Heart rate 76 /min 76 /min eCW1 ([facility]) Body mass index (BMI) [Ratio] 34.63 kg/m2 34.63 kg/m2 W1 ([facility]) Body height 70 [in_i] 70 [in_i] eCW1 ([facility]) Body weight 241.4 [lb_av] 241.4 [lb_av] eCW1 ([facility]) Body weight 239.00 [lb_av] 239.00 [lb_av] MEDEN T ([facility]) Diastolic blood pressure 70 mm[Hg] 70 mm[Hg] eCW1 ([facility]) Systolic blood pressure 122 mm[Hg] 122 mm[Hg] e CW1 ([facility]) Body mass index (BMI) [Ratio] 35.29 kg/m2 35.29 kg/m2 W1 ([facility]) Body height 70 [in_i] 70 [in_i] eCW1 ([facility]) Body weight 246.0 [lb_av] 246.0 [lb_av] eCW1 ([facility]) Diastolic blood pressure 63 mm[Hg] 63 mm[Hg] eCW1 ([facility]) Systolic blood pressure 104 mm[Hg] 104 mm[Hg] e CW1 ([facility]) Body temperature 98 [degF] 98 [degF] eCW1 ([facility]) Respiratory rate 19 /min 19 /min eCW1 ([facility]) Heart rate 65 /min 65 /min eCW1 ([facility]) Body mass index (BMI) [Ratio] 35.01 kg/m2 35.01 kg/m2 eCW1 ([facility]) Body height 70 [in_i] 70 [in_i] eCW1 ([facility]) Body weight 244 [lb_av] 244 [lb_av] eCW1 ([facility]) Diastolic blood pressure 78 mm[Hg] 78 mm[Hg] eCW1 ([facility]) Systolic blood pressure 121 mm[Hg] 121 mm[Hg] e CW1 ([facility]) Body temperature 98 [degF] 98 [degF] eCW1 ([facility]) Respiratory rate 19 /min 19 /min eCW1 ([facility]) Heart rate 80 /min 80 /min eCW1 ([facility]) Body mass index (BMI) [Ratio] 35.29 kg/m2 35.29 kg/m2 eCW1 ([facility]) Body height 70 [in_i] 70 [in_i] eCW1 ([facility]) Body weight 246 [lb_av] 246 [lb_av] eCW1 ([facility]) Body temperature 97.2 [degF] 97.2 [degF] MEDENT ([facility]) Body weight 109.318 kg 109.318 kg [facility] ([facility]) Body mass index (BMI) [Ratio] 33.6 kg/m2 33.6 k g/m2 [facility] ([facility]) Heart rate 79 /min 79 /min [facility]) Diastolic blood pressure 79 mm[Hg] 79 mm[Hg] [facility] ([facility]) Systolic blood pressure 131 mm[Hg] 131 mm[Hg] M EDENT ([facility]) Body weight 241.00 [lb_av] 241.00 [lb_av] MEDEN T ([facility]) Body height 71 [in_i] 71 [in_i] MEDENT ([facility]) 5'11" Diastolic blood pressure--sitting 73 mm[Hg] 73 mm[Hg] MED[facility] ([facility]) CBP, large cuff/Ra Systolic blood pressure--sitting 126 mm[Hg] 126 mm[Hg] [facility] ([facility]) CBP, large cuff/Ra Heart rate 72 /min 72 /min [facility] ([facility]) Body mass index (BMI) [Ratio] 33.6 kg/m2 33.6 k g/m2 MED[facility] ([facility]) Body height 71 [in_i] 71 [in_i] [facility] ([facility]) 5'11" Body weight 241.00 [lb_av] 241.00 [lb_av] MEDEN T ([facility]) Diastolic blood pressure 71 mm[Hg] 71 mm[Hg] eCW1 ([facility]) Systolic blood pressure 137 mm[Hg] 137 mm[Hg] e CW1 ([facility]) Body temperature 98 [degF] 98 [degF] eCW1 ([facility]) Respiratory rate 19 /min 19 /min eCW1 ([facility]) Heart rate 68 /min 68 /min eCW1 ([facility]) Body mass index (BMI) [Ratio] 35.29 kg/m2 35.29 kg/m2 eCW1 ([facility]) Body height 70 [in_i] 70 [in_i] eCW1 ([facility]) Body weight 246 [lb_av] 246 [lb_av] eCW1 ([facility]) Diastolic blood pressure 67 mm[Hg] 67 mm[Hg] eCW1 ([facility]) Systolic blood pressure 109 mm[Hg] 109 mm[Hg] e CW1 ([facility]) Body temperature 97.5 [degF] 97.5 [degF] eCW1 ( [facility]) Respiratory rate 18 /min 18 /min eCW1 ([facility]) Heart rate 75 /min 75 /min eCW1 ([facility]) Body mass index (BMI) [Ratio] 35.29 kg/m2 35.29 kg/m2 eCW1 ([facility]) Body height 70 [in_i] 70 [in_i] eCW1 ([facility]) Body weight 246 [lb_av] 246 [lb_av] eCW1 ([facility]) Diastolic blood pressure 67 mm[Hg] 67 mm[Hg] eCW1 ([facility]) Systolic blood pressure 110 mm[Hg] 110 mm[Hg] e CW1 ([facility]) Body temperature 98 [degF] 98 [degF] eCW1 ([facility]) Respiratory rate 18 /min 18 /min eCW1 ([facility]) Heart rate 83 /min 83 /min eCW1 ([facility]) Body mass index (BMI) [Ratio] 36.01 kg/m2 36.01 kg/m2 eCW1 ([facility]) Body height 70 [in_us] 70 [in_us] eCW1 ([facility]) Body weight Measured 251 [lb_av] 251 [lb_av] eC W1 ([facility]) Diastolic blood pressure 60 mm[Hg] 60 mm[Hg] eCW1 ([facility]) Systolic blood pressure 127 mm[Hg] 127 mm[Hg] e CW1 ([facility]) Heart rate 65 /min 65 /min eCW1 ([facility]) Body mass index (BMI) [Ratio] 36.87 kg/m2 36.87 kg/m2 eCW1 ([facility]) Body height 70 [in_us] 70 [in_us] eCW1 ([facility]) Body weight Measured 257 [lb_av] 257 [lb_av] eC W1 ([facility]) Diastolic blood pressure 72 mm[Hg] 72 mm[Hg] eCW1 ([facility]) Systolic blood pressure 121 mm[Hg] 121 mm[Hg] e CW1 ([facility]) Body temperature [degF] eCW1 ([facility]) Respiratory rate 18 /min 18 /min eCW1 ([facility]) Heart rate 92 /min 92 /min eCW1 ([facility]) Body mass index (BMI) [Ratio] 37.02 kg/m2 37.02 kg/m2 eCW1 ([facility]) Body height 70 [in_us] 70 [in_us] eCW1 ([facility]) Body weight Measured 258 [lb_av] 258 [lb_av] eC W1 ([facility]) ID Date Data Source [id number] 11/17/2019 02:20:00 PM EDT [facility] Name Value Range Interpretation Code Description Data Source(s) WEIGHT 112.49 kilos 112.49 kilos [facility] HEIGHT 185.42 centimeters 185.42 centimeter [facility] WEIGHT 112.49 kilos 112.49 kilos [facility] HEIGHT 185.42 centimeters 185.42 centimeter [facility] Patient Treatment Plan of Care Planned Activity Planned Date Details Description Data Source (s) One touch ultra blue 03/27/2020 12:00:00 AM EST eCW1 ([facility]) One touch ultra blue 03/27/2020 12:00:00 AM EST eCW1 ([facility]) One touch ultra blue 03/27/2020 12:00:00 AM EST eCW1 ([facility]) One touch ultra blue 03/27/2020 12:00:00 AM EST eCW1 ([facility]) One touch ultra blue 03/27/2020 12:00:00 AM EST eCW1 ([facility]) Toujeo Max SoloStar 300 UNIT/ML 03/25/2020 12:00:00 AM EST eCW1 ([facility]) Toujeo Max SoloStar 300 UNIT/ML 03/25/2020 12:00:00 AM EST eCW1 ([facility]) Toujeo Max SoloStar 300 UNIT/ML 03/25/2020 12:00:00 AM EST eCW1 ([facility]) [place] Max SoloStar 300 UNIT/ML 03/25/2020 12:00:00 AM EST eCW1 ([facility]) [place] Max SoloStar 300 UNIT/ML 03/25/2020 12:00:00 AM EST eCW1 ([facility]) Amoxicillin 875 MG / Clavulanate 125 MG Oral Tablet 12/19/19 12:00:00 AM EDT eCW1 ([facility]) Amoxicillin 875 MG / Clavulanate 125 MG Oral Tablet 12/19/19 12:00:00 AM EDT eCW1 ([facility]) 3 ML Insulin Glargine 100 UNT/ML Pen Injector [Lantus] 08/14/2019 12:00:00 AM EDT eCW1 (Replaced by [facility]) 3 ML Insulin Glargine 100 UNT/ML Pen Injector [Lantus] 08/14/2019 12:00:00 AM EDT eCW1 (Replaced by [facility]) 3 ML Insulin Glargine 100 UNT/ML Pen Injector [Lantus] 08/14/2019 12:00:00 AM EDT eCW1 (Replaced by [facility]) 3 ML Insulin Glargine 100 UNT/ML Pen Injector [Lantus] 08/14/2019 12:00:00 AM EDT eCW1 (Replaced by [facility]) montelukast 10 MG Oral Tablet 06/07/2019 12:00:00 AM EDT eCW1 ([facility]) montelukast 10 MG Oral Tablet 06/07/2019 12:00:00 AM EDT eCW1 ([facility]) montelukast 10 MG Oral Tablet 06/07/2019 12:00:00 AM EDT eCW1 ([facility]) montelukast 10 MG Oral Tablet 06/07/2019 12:00:00 AM EDT eCW1 ([facility]) montelukast 10 MG Oral Tablet 06/07/2019 12:00:00 AM EDT eCW1 ([facility]) montelukast 10 MG Oral Tablet 06/07/2019 12:00:00 AM EDT eCW1 ([facility]) Amoxicillin 500 MG Oral Capsule 03/19/2019 12:00:00 AM EST eCW1 ([facility]) empagliflozin 25 MG Oral Tablet [Jardiance] 02/13/2019 12:00:00 AM EST eCW1 ([facility]) empagliflozin 25 MG Oral Tablet [Jardiance] 02/13/2019 12:00:00 AM EST eCW1 ([facility]) empagliflozin 25 MG Oral Tablet [Jardiance] 02/13/2019 12:00:00 AM EST eCW1 ([facility]) empagliflozin 25 MG Oral Tablet [Jardiance] 02/13/2019 12:00:00 AM EST eCW1 ([facility]) empagliflozin 25 MG Oral Tablet [Jardiance] 02/13/2019 12:00:00 AM EST eCW1 ([facility]) empagliflozin 25 MG Oral Tablet [Jardiance] 02/13/2019 12:00:00 AM EST eCW1 ([facility])
[2020-04-08] MEDS ORDERED: DEXTROSE 50% 50 ML VIAL IV ONE (15:15)
[2020-04-08] MEDS ORDERED: DEXTROSE 50% 50 ML SYRINGE As Ordered ONE (15:28)
[2020-04-08] MEDS ORDERED: MIDAZOLAM INJ 2MG/2ML VIAL (J2250 PER 1MG) As Ordered ONE (15:39)
[2020-04-08] MEDS ORDERED: fentaNYL 100 MCG/2 ML INJECTION (J3010) As Ordered ONE (15:39)
[2020-04-08] MEDS ORDERED: LIDOCAINE 2% 100MG/5ML SDV (FOR ANES.) As Ordered ONE (15:40)
[2020-04-08] MEDS ORDERED: propofoL 200 MG/20 ML VIAL As Ordered ONE (15:40)
[2020-04-08] MEDS ORDERED: DEXTROSE 50% 50 ML SYRINGE IV ONE (16:00)
[2020-04-08] MEDS ORDERED: LIDOCAINE 1% SDV 30ML VIAL As Ordered ONE (16:35)
[2020-04-08 18:45] VITALS: BP 155/70
--- NOTE | 2020-04-08 20:39 | RO ---
OPERATIVE NOTE DATE OF OPERATION: 04/08/2020 PREOPERATIVE DIAGNOSIS: Atrial flutter management. POSTOPERATIVE DIAGNOSIS: Atrial flutter management. FINDINGS: Atrial flutter management. PROCEDURE PERFORMED: Implantation of a subcutaneous cardiac rhythm monitor ([employer]). SURGEON: Nicolas Macdonald M.D. SERVICE ORDER DISPATCHER: None. ANESTHESIA: Lidocaine 1% local/monitored anesthetic care. SPECIMENS: None. ESTIMATED BLOOD LOSS: Less than 1 mL. BLOOD PRODUCTS REPLACED: None. DRAINS: None. COMPLICATIONS: None. PROCEDURE DESCRIPTION: The patient was prepped and draped over the sternum and left anterior chest. Lidocaine 1% was used for local anesthetic. An incision was made with a #15 blade approximately 1 cm in length at the left fourth interspace one inch lateral to the left parasternal border. The guide on insertion tool was then placed into the incision and advanced parallel to the chest wall in a left lateral caudal direction. The insertion tool was rotated 180 degrees. The punch was placed into the insertion tool and used to advance the implantable loop recorder into the subcutaneous tissue. The punch was removed and then the insertion was removed, leaving the loop recorder in situ. The incision was then approximated temporarily with a 4-0 Biosyn suture applied subcuticular with the free ends of the suture protruding at the level of the skin 1 cm from both ends of the incision. This was then used to hold the incision under tension to approximate the skin edges tightly. Next, two layers of Dermabond were applied. The Biosyn suture was then pulled through the incision line and removed entirely. The cardiac rhythm monitor implanted was a [employer] LINQ model LNQ11 with serial number [id number]. The initial R wave amplitude measured 0.25 millivolts.
== END 2020-04-08 18:45 | disposition home or self-care (01) ==
LOC: M SDC 13:45
PROVIDERS: ATTEND Internal Medicine Cardiovascular Disease
DX: I48.92 Unspecified atrial flutter (principal); I10 Essential (primary) hypertension; E11.9 Type 2 diabetes mellitus without complications; E78.5 Hyperlipidemia, unspecified; Z79.4 Long term (current) use of insulin; Z79.84 Long term (current) use of oral hypoglycemic drugs; Z79.01 Long term (current) use of anticoagulants; Z79.899 Other long term (current) drug therapy; Z87.891 Personal history of nicotine dependence
CPT/HCPCS: 33285; C1764; J0690; J2250; J3010

== ENCOUNTER → 2020-08-27 | Outpatient (REF) | payer MEDICARE, BC ==
[~2020-08-27] MED LIST changes: -LIDOCAINE 1% MDV 20ML VIAL SQ PRN; -LR 1,000 ML IV ONE; -MONT10TA10 PO; +MONT10TA97 PO; -ceFAZolin SOD 1 GM in D5W MINI-BAG PLUS 50 ML IV ONE
[2020-08-27 11:50] LABS: HEMATOCRIT 50.1 % (42.0-52.0); HEMOGLOBIN 16.3 g/dl (13.5-17.5); MEAN CORPUSCULAR HEMOGLOBIN 30.7 pg (27.0-33.0); MEAN CORPUSCULAR HGB CONC 32.5 g/dl (32.0-36.5); MEAN CORPUSCULAR VOLUME 94.4 fl (80.0-96.0); PLATELET COUNT, AUTOMATED 232 10^3/uL (150-450); RED BLOOD COUNT 5.31 10^6/uL (4.30-6.10); WHITE BLOOD COUNT 8.2 10^3/uL (4.0-10.0)
[2020-08-27 12:22] LABS: HEMOGLOBIN A1c 7.4 %
[2020-08-27 12:35] LABS: ALBUMIN 4.1 GM/DL (3.2-5.2); ALT/SGPT 29 U/L (12-78); BILIRUBIN,TOTAL 0.7 MG/DL (0.2-1.0); BLOOD UREA NITROGEN 21 MG/DL (7-18); CALCIUM LEVEL 9.1 MG/DL (8.8-10.2); CARBON DIOXIDE LEVEL 30 MEQ/L (21-32); CHLORIDE LEVEL 107 MEQ/L (98-107); CHOLESTEROL LEVEL 159 MG/DL (<200); CHOLESTEROL RISK RATIO 3.312 (<5); CREATININE FOR GFR 1.05 MG/DL (0.70-1.30); CREATININE, URINE < 13.0 MG/DL; GLOMERULAR FILTRATION RATE > 60.0 (>42); GLUCOSE, FASTING 119 MG/DL (70-100); HDL CHOLESTEROL 48 MG/DL (>40); LDL CHOLESTEROL 90 MG/DL (<100); NON-HDL-C 111 MG/DL; POTASSIUM SERUM 4.1 MEQ/L (3.5-5.1); SODIUM LEVEL 144 MEQ/L (136-145); TOTAL PROTEIN 7.2 GM/DL (6.4-8.2); TRIGLYCERIDES LEVEL 105 MG/DL (<150)
== END ==
LOC: M SFHCCLAY 07:36
PROVIDERS: ATTEND Family Medicine
DX: E78.00 Pure hypercholesterolemia, unspecified (principal); I10 Essential (primary) hypertension; E11.9 Type 2 diabetes mellitus without complications
CPT/HCPCS: 80053; 80061; 82043; 83036; 85027; G0463

== ENCOUNTER → 2020-08-28 | Outpatient (CLI) | payer MEDICARE, BC ==
[~2020-08-28] MED LIST changes: +MONT10TA10 PO; -MONT10TA97 PO
== END ==
LOC: M LABSMTC 12:15
PROVIDERS: ATTEND Pediatrics
DX: Z20.822 Contact with and (suspected) exposure to COVID-19 (principal)

== ENCOUNTER → 2020-09-08 | Outpatient (CLI) | payer MEDICARE, BC ==
--- NOTE | 2020-09-08 14:25 | REP ---
INDICATION: TESTIS PAIN. COMPARISON: None. TECHNIQUE: Real-time sonographic evaluation of scrotum and contents performed. FINDINGS: The testicles are normal in size and echotexture, right testicle measuring 3.6 x 2.3 x 3.2 cm and left testicle 3.6 x 3.0 x 2.9 cm. There is no testicular mass or torsion, blood flow is seen in each testicle with duplex Doppler evaluation. There are findings of tubular ectasia in the mediastinum of the right testicle. The extratesticular calcification is seen in the right hemiscrotum measuring 5 x 7 x 3 mm. There is a small right hydrocele. A cyst in the head of the right epididymis measures 9 x 12 x 6 mm. IMPRESSION: No testicular mass or torsion. Mild tubular ectasia right testicle. Benign extratesticular calcification on the right (scrotal shubham). Small right hydrocele. Small cyst head of right epididymis. <Electronically signed by Roldan Powers > 09/08/20 [id number]
== END ==
LOC: M RAD 12:16
PROVIDERS: ATTEND Family Medicine
DX: N50.819 Testicular pain, unspecified (principal)

== ENCOUNTER → 2020-12-29 | Outpatient (REF) | payer MEDICARE, BC ==
[~2020-12-29] MED LIST changes: -MONT10TA10 PO; +MONT10TA97 PO
== END ==
LOC: M LAB REF 14:02
PROVIDERS: ATTEND Physician Assistant
DX: D22.39 Melanocytic nevi of other parts of face (principal)
CPT/HCPCS: 11102; 11103; 17000; 17003; 88305; G0463

== ENCOUNTER → 2020-12-31 | Outpatient (CLI) | payer MEDICARE, BC ==
[~2020-12-31] MED LIST changes: +MONT10TA10 PO; -MONT10TA97 PO
--- NOTE | 2020-12-31 09:53 | REP ---
INDICATION: FINGER PAIN, RIGHT; ATTN PIP JOINT 3RD RT FINGER; HX INJURY. COMPARISON: None. TECHNIQUE: Four views FINDINGS: The joint spaces are symmetric and relatively well maintained. There is no evidence of acute fracture or destructive osseous lesion. IMPRESSION: Negative hand. <Electronically signed by Wesly Moseley > 12/31/20 [id number]
== END ==
LOC: M CLY 08:39
PROVIDERS: ATTEND Family Medicine
DX: M79.644 Pain in right finger(s) (principal); E11.9 Type 2 diabetes mellitus without complications
CPT/HCPCS: 73130; 83036; G0463; G8482

== ENCOUNTER → 2020-12-31 | Outpatient (REF) | payer MEDICARE, BC ==
[2020-12-31 12:04] LABS: HEMOGLOBIN A1c 7.9 %
== END ==
LOC: M SFHCCLAY 08:28
PROVIDERS: ATTEND Family Medicine
DX: E11.9 Type 2 diabetes mellitus without complications (principal)

== ENCOUNTER → 2021-04-01 | Outpatient (REF) | payer MEDICARE, BC ==
[~2021-04-01] MED LIST changes: -MONT10TA10 PO; +MONT10TA97 PO
[2021-04-01 11:46] LABS: APPEARANCE, URINE CLEAR (CLEAR); BACTERIA, URINE AUTO NEGATIVE (NEGATIVE); BILIRUBIN, URINE AUTO NEGATIVE (NEGATIVE); BLOOD, URINE BLOOD NEGATIVE (NEGATIVE); COLOR, URINE STRAW (YELLOW); GLUCOSE, URINE (UA) AUTO 3+ mg/dL (NEGATIVE); KETONE, URINE AUTO NEGATIVE (NEGATIVE); LEUKOCYTE ESTERASE, URINE AUTO NEGATIVE (NEGATIVE); NITRITE, URINE AUTO NEGATIVE (NEGATIVE); PROTEIN, URINE AUTO NEGATIVE (NEGATIVE); RBC, URINE AUTO 0 /HPF (0-3); SPECIFIC GRAVITY URINE AUTO 1.009 (1.002-1.035); SQUAMOUS EPITHELIAL CELL UR AU 0 /HPF (0-6); UROBILINOGEN, URINE AUTO 0.2 mg/dL (0.0-2.0); WBC, URINE AUTO 0 /HPF (0-3)
[2021-04-01 11:49] LABS: HEMATOCRIT 47.1 % (42.0-52.0); HEMOGLOBIN 15.1 g/dl (13.5-17.5); MEAN CORPUSCULAR HEMOGLOBIN 30.1 pg (27.0-33.0); MEAN CORPUSCULAR HGB CONC 32.1 g/dl (32.0-36.5); PLATELET COUNT, AUTOMATED 222 10^3/uL (150-450); RED BLOOD COUNT 5.01 10^6/uL (4.30-6.10); WHITE BLOOD COUNT 8.3 10^3/uL (4.0-10.0)
[2021-04-01 12:33] LABS: ALBUMIN 4.1 GM/DL (3.2-5.2); ALT/SGPT 23 U/L (12-78); BILIRUBIN,TOTAL 0.6 MG/DL (0.2-1.0); BLOOD UREA NITROGEN 23 MG/DL (7-18); CARBON DIOXIDE LEVEL 28 MEQ/L (21-32); CHLORIDE LEVEL 109 MEQ/L (98-107); CHOLESTEROL LEVEL 142 MG/DL (<200); CHOLESTEROL RISK RATIO 3.086 (<5); CREATININE FOR GFR 1.06 MG/DL (0.70-1.30); CREATININE, URINE 23.5 MG/DL; GLOMERULAR FILTRATION RATE > 60.0 (>42); GLUCOSE, FASTING 115 MG/DL (70-100); HDL CHOLESTEROL 46 MG/DL (>40); LDL CHOLESTEROL 80 MG/DL (<100); MALB URINE SIEMENS 9.8 MG/L; MAU/CREAT RATIO 41.7 MCG/MG (0.0-30.0); NON-HDL-C 96 MG/DL; POTASSIUM SERUM 4.3 MEQ/L (3.5-5.1); SODIUM LEVEL 143 MEQ/L (136-145); TOTAL PROTEIN 6.6 GM/DL (6.4-8.2); TRIGLYCERIDES LEVEL 79 MG/DL (<150)
[2021-04-01 12:49] LABS: HEMOGLOBIN A1c 7.4 %
== END ==
LOC: M SFHCCLAY 07:44
PROVIDERS: ATTEND Family Medicine
DX: E78.00 Pure hypercholesterolemia, unspecified (principal); E11.9 Type 2 diabetes mellitus without complications; I10 Essential (primary) hypertension

== ENCOUNTER → 2021-04-22 | Outpatient (REF) | payer MEDICARE, BC | LOC: M SFHCDERM 17:58 | PROVIDERS: ATTEND Physician Assistant | DX: L82.1 Other seborrheic keratosis (principal) ==

== ENCOUNTER → 2021-07-21 | Outpatient (REF) | payer MEDICARE, BC ==
[2021-07-21 16:32] LABS: BLOOD UREA NITROGEN 20 MG/DL (7-18); CALCIUM LEVEL 8.9 MG/DL (8.8-10.2); CARBON DIOXIDE LEVEL 28 MEQ/L (21-32); CHLORIDE LEVEL 108 MEQ/L (98-107); CREATININE FOR GFR 1.14 MG/DL (0.70-1.30); GLOMERULAR FILTRATION RATE > 60.0 (>42); GLUCOSE, FASTING 112 MG/DL (70-100); POTASSIUM SERUM 4.2 MEQ/L (3.5-5.1); SODIUM LEVEL 140 MEQ/L (136-145)
[2021-07-21 16:42] LABS: HEMOGLOBIN A1c 6.9 %
== END ==
LOC: M SFHCCLAY 10:38
PROVIDERS: ATTEND Family Medicine
DX: E78.00 Pure hypercholesterolemia, unspecified (principal); E11.9 Type 2 diabetes mellitus without complications

== ENCOUNTER → 2021-10-20 | Outpatient (REF) | payer MEDICARE, BC ==
[2021-10-20 12:25] LABS: BLOOD UREA NITROGEN 18 MG/DL (7-18); CALCIUM LEVEL 8.9 MG/DL (8.8-10.2); CARBON DIOXIDE LEVEL 27 MEQ/L (21-32); CHLORIDE LEVEL 107 MEQ/L (98-107); GLOMERULAR FILTRATION RATE > 60.0 (>42); GLUCOSE, FASTING 78 MG/DL (70-100); POTASSIUM SERUM 4.2 MEQ/L (3.5-5.1); SODIUM LEVEL 140 MEQ/L (136-145)
[2021-10-20 20:17] LABS: HEMOGLOBIN A1c 7.3 %
== END ==
LOC: M SFHCCLAY 08:57
PROVIDERS: ATTEND Family Medicine
DX: I10 Essential (primary) hypertension (principal); E11.9 Type 2 diabetes mellitus without complications

== ENCOUNTER 2022-01-13 11:13 | Emergency (ER) | payer MEDICARE, BC ==
[~2022-01-13] VITALS: Ht 177.8 cm; Wt 108.0 kg
[2022-01-13] MEDS ORDERED: ONDANSETRON 4MG 2ML VIAL IV ONE (11:55)
[2022-01-13] MEDS ORDERED: ceFAZolin SOD 2 GM in IV 1 EA IV ONE (11:55)
[2022-01-13] MEDS ORDERED: LIDOCAINE 1% MDV 20ML VIAL INFIL ONE (11:55)
[2022-01-13] MEDS ORDERED: MORPHINE 4 MG/ML 1ML VIAL/SYRINGE IV ONE (11:55)
[2022-01-13 12:34] LABS: BASO % 0.3 % (0.0-1.0); EOS % 0.1 % (0.0-3.0); HEMATOCRIT 45.4 % (42.0-52.0); HEMOGLOBIN 14.5 g/dl (13.5-17.5); LYMPH # 1.7 10^3/uL (1.5-5.0); LYMPH % 12.5 % (24.0-44.0); MEAN CORPUSCULAR HEMOGLOBIN 30.1 pg (27.0-33.0); MEAN CORPUSCULAR HGB CONC 31.9 g/dl (32.0-36.5); MEAN CORPUSCULAR VOLUME 94.2 fl (80.0-96.0); MONO # 0.7 10^3/uL (0.0-0.8); NEUTROPHILS # 11.2 10^3/uL (1.5-8.5); NEUTROPHILS % 81.6 % (36.0-66.0); PLATELET COUNT, AUTOMATED 242 10^3/uL (150-450); RED BLOOD COUNT 4.82 10^6/uL (4.30-6.10); WHITE BLOOD COUNT 13.7 10^3/uL (4.0-10.0)
[2022-01-13 13:41] LABS: BLOOD UREA NITROGEN 27 MG/DL (9-23); CALCIUM LEVEL 8.8 MG/DL (8.3-10.6); CARBON DIOXIDE LEVEL 24 MMOL/L (20-31); CHLORIDE LEVEL 106 MMOL/L (98-107); CREATININE FOR GFR 1.05 MG/DL (0.70-1.30); GLOMERULAR FILTRATION RATE > 60.0 (>42); GLUCOSE, FASTING 122 MG/DL (74-106); POTASSIUM SERUM 4.4 MMOL/L (3.5-5.1); SODIUM LEVEL 141 MMOL/L (136-145)
[2022-01-13] MEDS ORDERED: CEPH500C PO (13:50)
[2022-01-13] MEDS ORDERED: PERC5TAB12 PO (15:56)
[2022-01-13 16:17] VITALS: BP 155/82
== END 2022-01-13 16:26 | disposition home or self-care (01) ==
LOC: M ED 11:13
DX: S68.127A Partial traumatic metacarpophalangeal amputation of left little finger, initial encounter (principal); S63.602A Unspecified sprain of left thumb, initial encounter; S66.902A Unspecified injury of unspecified muscle, fascia and tendon at wrist and hand level, left hand, initial encounter; W31.2XXA Contact with powered woodworking and forming machines, initial encounter; E11.9 Type 2 diabetes mellitus without complications; K21.9 Gastro-esophageal reflux disease without esophagitis; I10 Essential (primary) hypertension; E78.5 Hyperlipidemia, unspecified; F10.10 Alcohol abuse, uncomplicated; Z79.84 Long term (current) use of oral hypoglycemic drugs; Z79.899 Other long term (current) drug therapy; Y92.009 Unspecified place in unspecified non-institutional (private) residence as the place of occurrence of the external cause
CPT/HCPCS: 73130; 80048; 85025; 96365; 96375; 99284; J0690; J2270; J2405

== ENCOUNTER → 2022-04-21 | Outpatient (REF) | payer MEDICARE, BC ==
[~2022-04-21] MED LIST changes: +CEPH500C PO; +PERC5TAB12 PO
[2022-04-21 11:26] LABS: APPEARANCE, URINE CLEAR (CLEAR); BACTERIA, URINE AUTO NEGATIVE (NEGATIVE); BILIRUBIN, URINE AUTO NEGATIVE (NEGATIVE); BLOOD, URINE BLOOD NEGATIVE (NEGATIVE); COLOR, URINE STRAW (YELLOW); GLUCOSE, URINE (UA) AUTO 3+ mg/dL (NEGATIVE); KETONE, URINE AUTO NEGATIVE (NEGATIVE); LEUKOCYTE ESTERASE, URINE AUTO NEGATIVE (NEGATIVE); MUCUS, URINE SMALL (NEGATIVE); NITRITE, URINE AUTO NEGATIVE (NEGATIVE); PROTEIN, URINE AUTO NEGATIVE (NEGATIVE); RBC, URINE AUTO 0 /HPF (0-3); SPECIFIC GRAVITY URINE AUTO 1.012 (1.002-1.035); SQUAMOUS EPITHELIAL CELL UR AU 0 /HPF (0-6); UROBILINOGEN, URINE AUTO 0.2 mg/dL (0.0-2.0); WBC, URINE AUTO 0 /HPF (0-3)
[2022-04-21 11:55] LABS: CREATININE, URINE 31.2 MG/DL; MAU/CREAT RATIO 35.2 MCG/MG (0.0-30.0)
[2022-04-21 11:59] LABS: ALBUMIN 4.1 G/DL (3.2-5.2); ALKALINE PHOSPHATASE 72 U/L (46-116); ALT/SGPT 33 U/L (7.0-40); AST/SGOT 28 U/L (<34); BLOOD UREA NITROGEN 26 MG/DL (9-23); CALCIUM LEVEL 9.4 MG/DL (8.3-10.6); CARBON DIOXIDE LEVEL 29 MMOL/L (20-31); CHLORIDE LEVEL 105 MMOL/L (98-107); CHOLESTEROL LEVEL 146 MG/DL (<200); CREATININE FOR GFR 0.94 MG/DL (0.70-1.30); GLOMERULAR FILTRATION RATE > 60.0 (>42); GLUCOSE, FASTING 92 MG/DL (74-106); LDL CHOLESTEROL 79.6 MG/DL (<100); NON-HDL-C 92 MG/DL; POTASSIUM SERUM 4.6 MMOL/L (3.5-5.1); SODIUM LEVEL 142 MMOL/L (136-145); TOTAL PROTEIN 6.8 G/DL (5.7-8.2); TRIGLYCERIDES LEVEL 62 MG/DL (<150)
== END ==
LOC: M SFHCCLAY 07:52
PROVIDERS: ATTEND Family Medicine
DX: K21.9 Gastro-esophageal reflux disease without esophagitis (principal); I10 Essential (primary) hypertension; E11.9 Type 2 diabetes mellitus without complications

== ENCOUNTER → 2022-10-28 | Outpatient (REF) | payer MEDICARE, BC ==
[2022-10-28 13:08] LABS: ALBUMIN 4.1 G/DL (3.2-5.2); ALKALINE PHOSPHATASE 85 U/L (46-116); ALT/SGPT 24 U/L (7.0-40); AST/SGOT 15 U/L (<34); BILIRUBIN,TOTAL 0.7 MG/DL (0.3-1.2); BLOOD UREA NITROGEN 18 MG/DL (9-23); CALCIUM LEVEL 9.2 MG/DL (8.3-10.6); CARBON DIOXIDE LEVEL 28 MMOL/L (20-31); CHLORIDE LEVEL 106 MMOL/L (98-107); CREATININE FOR GFR 0.97 MG/DL (0.70-1.30); GLOMERULAR FILTRATION RATE > 60.0 (>42); GLUCOSE, FASTING 140 MG/DL (74-106); POTASSIUM SERUM 4.3 MMOL/L (3.5-5.1); SODIUM LEVEL 142 MMOL/L (136-145)
[2022-10-28 13:31] LABS: HEMOGLOBIN A1c 7.1 % (4.0-6.0)
== END ==
LOC: M SFHCCLAY 08:47
PROVIDERS: ATTEND Family Medicine
DX: E11.9 Type 2 diabetes mellitus without complications (principal)

== ENCOUNTER → 2022-11-02 | Outpatient (REF) | payer MEDICARE, BC | LOC: M SFHCCLAY 15:28 | PROVIDERS: ATTEND Family Medicine | DX: B34.9 Viral infection, unspecified (principal) ==

== ENCOUNTER → 2023-02-07 | Outpatient (REF) | payer MEDICARE, BC ==
[2023-02-07 13:11] LABS: BLOOD UREA NITROGEN 24 MG/DL (9-23); CALCIUM LEVEL 9.2 MG/DL (8.3-10.6); CARBON DIOXIDE LEVEL 26 MMOL/L (20-31); CHLORIDE LEVEL 107 MMOL/L (98-107); CREATININE FOR GFR 0.94 MG/DL (0.70-1.30); GLOMERULAR FILTRATION RATE > 60.0 (>42); GLUCOSE, FASTING 194 MG/DL (74-106); POTASSIUM SERUM 4.4 MMOL/L (3.5-5.1); SODIUM LEVEL 141 MMOL/L (136-145)
[2023-02-07 13:22] LABS: HEMOGLOBIN A1c 7.2 % (4.0-6.0)
== END ==
LOC: M SFHCCLAY 07:38
PROVIDERS: ATTEND Family Medicine
DX: I10 Essential (primary) hypertension (principal); E11.9 Type 2 diabetes mellitus without complications

== ENCOUNTER → 2023-06-09 | Outpatient (REF) | payer MEDICARE, BC ==
[2023-06-09 12:52] LABS: BLOOD UREA NITROGEN 27 MG/DL (9-23); CALCIUM LEVEL 8.6 MG/DL (8.3-10.6); CARBON DIOXIDE LEVEL 29 MMOL/L (20-31); CHLORIDE LEVEL 108 MMOL/L (98-107); CREATININE FOR GFR 0.99 MG/DL (0.70-1.30); GLOMERULAR FILTRATION RATE > 60.0 (>42); GLUCOSE, FASTING 116 MG/DL (74-106); POTASSIUM SERUM 4.2 MMOL/L (3.5-5.1); SODIUM LEVEL 142 MMOL/L (136-145)
== END ==
LOC: M SFHCCLAY 07:11
PROVIDERS: ATTEND Family Medicine
DX: E11.9 Type 2 diabetes mellitus without complications (principal); I10 Essential (primary) hypertension

== ENCOUNTER → 2023-08-31 | Outpatient (CLI) | payer MEDICARE, BC ==
[~2023-08-31] MED LIST changes: +RAMI10CA64 PO; -RAMI1CAP26 PO
== END ==
LOC: M CLY 13:51
PROVIDERS: ATTEND Physician Assistant
DX: M25.551 Pain in right hip (principal)

== ENCOUNTER → 2023-09-14 | Outpatient (REF) | payer MEDICARE, BC ==
[2023-09-14 11:27] LABS: BLOOD UREA NITROGEN 27 MG/DL (9-23); CALCIUM LEVEL 8.9 MG/DL (8.3-10.6); CARBON DIOXIDE LEVEL 25 MMOL/L (20-31); CHLORIDE LEVEL 107 MMOL/L (98-107); CREATININE FOR GFR 1.07 MG/DL (0.70-1.30); GLOMERULAR FILTRATION RATE > 60.0 (>42); GLUCOSE, FASTING 189 MG/DL (74-106); MAGNESIUM LEVEL 2.2 MG/DL (1.8-2.4); POTASSIUM SERUM 4.2 MMOL/L (3.5-5.1); SODIUM LEVEL 141 MMOL/L (136-145)
== END ==
LOC: M SFHCCLAY 07:03
PROVIDERS: ATTEND Physician Assistant
DX: R60.0 Localized edema (principal)

== ENCOUNTER → 2023-10-26 | Outpatient (CLI) | payer MEDICARE, BC | LOC: M CLY 14:38 | PROVIDERS: ATTEND Family Medicine | DX: S90.129A Contusion of unspecified lesser toe(s) without damage to nail, initial encounter (principal); X58.XXXA Exposure to other specified factors, initial encounter; Y92.9 Unspecified place or not applicable; Y93.9 Activity, unspecified; Y99.9 Unspecified external cause status ==

== ENCOUNTER → 2024-01-12 | Outpatient (CLI) | payer MEDICARE, BC | LOC: M CARPUL 08:41 | PROVIDERS: ATTEND Registered Nurse | DX: I71.20 Thoracic aortic aneurysm, without rupture, unspecified (principal); R94.31 Abnormal electrocardiogram [ECG] [EKG] ==

== ENCOUNTER → 2024-01-16 | Outpatient (REF) | payer MEDICARE, BC ==
[2024-01-16 11:48] LABS: APPEARANCE, URINE CLEAR (CLEAR); BACTERIA, URINE AUTO NEGATIVE (NEGATIVE); BILIRUBIN, URINE AUTO NEGATIVE (NEGATIVE); BLOOD, URINE BLOOD NEGATIVE (NEGATIVE); COLOR, URINE STRAW (YELLOW); GLUCOSE, URINE (UA) AUTO 3+ mg/dL (NEGATIVE); KETONE, URINE AUTO NEGATIVE (NEGATIVE); LEUKOCYTE ESTERASE, URINE AUTO NEGATIVE (NEGATIVE); NITRITE, URINE AUTO NEGATIVE (NEGATIVE); PROTEIN, URINE AUTO NEGATIVE (NEGATIVE); RBC, URINE AUTO 0 /HPF (0-3); SQUAMOUS EPITHELIAL CELL UR AU 0 /HPF (0-6); UROBILINOGEN, URINE AUTO 0.2 mg/dL (0.0-2.0); WBC, URINE AUTO 0 /HPF (0-3)
[2024-01-16 11:56] LABS: BASO # 0.1 10^3/uL (0.0-0.2); BASO % 0.7 % (0.0-1.0); EOS # 0.1 10^3/uL (0.0-0.5); EOS % 1.5 % (0.0-3.0); HEMATOCRIT 48.4 % (42.0-52.0); HEMOGLOBIN 15.8 g/dl (13.5-17.5); LYMPH # 2.6 10^3/uL (1.5-5.0); LYMPH % 32.2 % (24.0-44.0); MEAN CORPUSCULAR HEMOGLOBIN 30.7 pg (27.0-33.0); MEAN CORPUSCULAR HGB CONC 32.6 g/dl (32.0-36.5); MONO # 0.7 10^3/uL (0.0-0.8); MONO % 9.1 % (2.0-8.0); NEUTROPHILS # 4.6 10^3/uL (1.5-8.5); NEUTROPHILS % 56.4 % (36.0-66.0); PLATELET COUNT, AUTOMATED 266 10^3/uL (150-450); RED BLOOD COUNT 5.15 10^6/uL (4.30-6.10); WHITE BLOOD COUNT 8.1 10^3/uL (4.0-10.0)
[2024-01-16 12:16] LABS: HEMOGLOBIN A1c 7.6 % (4.0-6.0)
[2024-01-16 12:25] LABS: ALBUMIN 4.2 G/DL (3.2-5.2); ALKALINE PHOSPHATASE 81 U/L (40-129); ALT/SGPT 23 U/L (7.0-40); AST/SGOT 14 U/L (<34); BILIRUBIN,TOTAL 0.7 MG/DL (0.3-1.2); BLOOD UREA NITROGEN 25 MG/DL (9-23); CALCIUM LEVEL 9.7 MG/DL (8.3-10.6); CARBON DIOXIDE LEVEL 30 MMOL/L (20-31); CHLORIDE LEVEL 105 MMOL/L (98-107); CREATININE FOR GFR 1.06 MG/DL (0.70-1.30); GLOMERULAR FILTRATION RATE > 60.0 (>42); GLUCOSE, FASTING 93 MG/DL (74-106); POTASSIUM SERUM 4.1 MMOL/L (3.5-5.1); PSA SCREENING 3.54 NG/ML (< 4.00); SODIUM LEVEL 142 MMOL/L (136-145); TOTAL PROTEIN 7.5 G/DL (5.7-8.2)
== END ==
LOC: M SFHCCLAY 07:11
PROVIDERS: ATTEND Family Medicine
DX: E11.9 Type 2 diabetes mellitus without complications (principal); I10 Essential (primary) hypertension; Z12.5 Encounter for screening for malignant neoplasm of prostate
CPT/HCPCS: 80053; 81001; 83036; 85025; G0103

== ENCOUNTER → 2024-01-24 | Outpatient (CLI) | payer MEDICARE, BC | LOC: M CARPUL 07:52 | PROVIDERS: ATTEND Registered Nurse | DX: I71.20 Thoracic aortic aneurysm, without rupture, unspecified (principal); I27.20 Pulmonary hypertension, unspecified; I36.1 Nonrheumatic tricuspid (valve) insufficiency ==

== ENCOUNTER 2024-03-28 06:41 | Day surgery (SDC) | payer MEDICARE, BC ==
[~2024-03-28] VITALS: Ht 180.3 cm; Wt 106.6 kg
[~2024-03-28 06:41] MED LIST changes: +FLUO1SOL TOP; +GLUC1CAP10 PO; +MELO15TA28 PO; +NYST100085 TOP; +OCUVTAB4 PO; +THERTAB52 PO; +TOUJ300I2 SC; +TRIA1CR80 TOP
[2024-03-28] MEDS ORDERED: LIDOCAINE 2% 100MG/5ML SDV (FOR ANES.) As Ordered ONE (07:19)
[2024-03-28] MEDS ORDERED: propofoL 200 MG/20 ML VIAL As Ordered ONE (07:19)
[2024-03-28 07:58] VITALS: TEMP 97.4
[2024-03-28 08:20] VITALS: BP 114/59; O2SAT 95
== END 2024-03-28 08:35 | disposition home or self-care (01) ==
LOC: M OPP 06:41
PROVIDERS: ATTEND Internal Medicine Gastroenterology
DX: K51.211 Ulcerative (chronic) proctitis with rectal bleeding (principal); K64.0 First degree hemorrhoids; K62.89 Other specified diseases of anus and rectum; K62.5 Hemorrhage of anus and rectum; I49.9 Cardiac arrhythmia, unspecified; I10 Essential (primary) hypertension; E11.9 Type 2 diabetes mellitus without complications; R06.83 Snoring; Z85.820 Personal history of malignant melanoma of skin; Z79.4 Long term (current) use of insulin; Z79.84 Long term (current) use of oral hypoglycemic drugs; Z79.899 Other long term (current) drug therapy; Z87.891 Personal history of nicotine dependence

== ENCOUNTER → 2024-04-24 | Outpatient (REF) | payer MEDICARE, BC ==
[2024-04-24 14:07] LABS: ALBUMIN 4.3 G/DL (3.2-5.2); ALKALINE PHOSPHATASE 87 U/L (40-129); ALT/SGPT 25 U/L (7.0-40); AST/SGOT 19 U/L (<34); BILIRUBIN,TOTAL 0.9 MG/DL (0.3-1.2); BLOOD UREA NITROGEN 28 MG/DL (9-23); CALCIUM LEVEL 9.4 MG/DL (8.3-10.6); CARBON DIOXIDE LEVEL 29 MMOL/L (20-31); CHLORIDE LEVEL 103 MMOL/L (98-107); CHOLESTEROL LEVEL 148 MG/DL (<200); CREATININE FOR GFR 1.04 MG/DL (0.70-1.30); CREATININE, URINE 31.1 MG/DL; GLOMERULAR FILTRATION RATE > 60.0 (>42); GLUCOSE, FASTING 69 MG/DL (74-106); HDL CHOLESTEROL 47.6 MG/DL (>40); LDL CHOLESTEROL 78.4 MG/DL (<100); MAU/CREAT RATIO 22.5 MCG/MG (0.0-30.0); NON-HDL-C 100.4 MG/DL; POTASSIUM SERUM 4.3 MMOL/L (3.5-5.1); SODIUM LEVEL 142 MMOL/L (136-145); TOTAL PROTEIN 7.5 G/DL (5.7-8.2); TRIGLYCERIDES LEVEL 110 MG/DL (<150)
[2024-04-24 15:02] LABS: HEMOGLOBIN A1c 7.6 % (4.0-6.0)
== END ==
LOC: M SFHCCLAY 08:26
PROVIDERS: ATTEND Physician Assistant
DX: Z00.00 Encounter for general adult medical examination without abnormal findings (principal); Z91.85 Personal history of military service; E11.9 Type 2 diabetes mellitus without complications; I10 Essential (primary) hypertension; N40.1 Benign prostatic hyperplasia with lower urinary tract symptoms; E78.00 Pure hypercholesterolemia, unspecified; K21.9 Gastro-esophageal reflux disease without esophagitis; M25.551 Pain in right hip; I48.92 Unspecified atrial flutter

== ENCOUNTER → 2024-09-18 | Outpatient (REF) | payer MEDICARE, BC ==
[~2024-09-18] MED LIST changes: +ACET-1592 PO; -ACET1TAB37 PO; +PRAV80TA75 PO
[2024-09-18 19:00] LABS: BASO # 0.1 10^3/uL (0.0-0.2); BASO % 0.6 % (0.0-1.0); EOS # 0.1 10^3/uL (0.0-0.5); EOS % 0.6 % (0.0-3.0); LYMPH # 2.3 10^3/uL (1.5-5.0); LYMPH % 29.4 % (24.0-44.0); MONO # 0.6 10^3/uL (0.0-0.8); MONO % 7.6 % (2.0-8.0); NEUTROPHILS # 4.8 10^3/uL (1.5-8.5); NEUTROPHILS % 61.3 % (36.0-66.0); PLATELET COUNT, AUTOMATED 235 10^3/uL (150-450)
[2024-09-18 19:01] LABS: ALT/SGPT 29.0 U/L (7.0-40); AST/SGOT 26.0 U/L (<34); CALCIUM LEVEL 9.1 MG/DL (8.3-10.6); CARBON DIOXIDE LEVEL 27.0 MMOL/L (20-31); CHLORIDE LEVEL 102.0 MMOL/L (98-107); CREATININE FOR GFR 1.19 MG/DL (0.70-1.30); GLOMERULAR FILTRATION RATE 64.1 (>42); POTASSIUM SERUM 4.0 MMOL/L (3.5-5.1); SODIUM LEVEL 144.0 MMOL/L (136-145)
== END ==
LOC: M SFHCCLAY 13:47
PROVIDERS: ATTEND Physician Assistant
DX: R42 Dizziness and giddiness (principal); Z79.899 Other long term (current) drug therapy

== ENCOUNTER → 2024-10-16 | Outpatient (REF) | payer MEDICARE, BC ==
[2024-10-16 18:49] LABS: CHOLESTEROL LEVEL 147.0 MG/DL (<200); CHOLESTEROL RISK RATIO 3.32 (<5); LDL CHOLESTEROL 63.6 MG/DL (<100); NON-HDL-C 102.8 MG/DL; TRIGLYCERIDES LEVEL 196.0 MG/DL (<150)
[2024-10-16 18:50] LABS: FREE T4 1.16 NG/DL (0.89-1.76)
[2024-10-16 19:12] LABS: ESTIMATED AVERAGE GLUCOSE 157.0 MG/DL (60-110)
== END ==
LOC: M SFHCCLAY 14:00
PROVIDERS: ATTEND Physician Assistant
DX: E11.9 Type 2 diabetes mellitus without complications (principal); I10 Essential (primary) hypertension; N40.1 Benign prostatic hyperplasia with lower urinary tract symptoms; E78.00 Pure hypercholesterolemia, unspecified; K21.9 Gastro-esophageal reflux disease without esophagitis; M25.551 Pain in right hip; I48.92 Unspecified atrial flutter; R79.89 Other specified abnormal findings of blood chemistry

== ENCOUNTER → 2025-01-21 | Outpatient (REF) | payer MEDICARE, BC ==
[~2025-01-21] MED LIST changes: -EZET10TA21 PO; +EZET10TA57 PO
[2025-01-21 13:06] LABS: PSA SCREENING 3.6 NG/ML (< 4.00)
[2025-01-21 13:09] LABS: ALT/SGPT 23.0 U/L (7.0-40); AST/SGOT 22.0 U/L (<34); CALCIUM LEVEL 8.9 MG/DL (8.3-10.6); CARBON DIOXIDE LEVEL 30.0 MMOL/L (20-31); CHLORIDE LEVEL 106.0 MMOL/L (98-107); CHOLESTEROL LEVEL 143.0 MG/DL (<200); CHOLESTEROL RISK RATIO 3.14 (<5); CREATININE FOR GFR 1.1 MG/DL (0.70-1.30); GLOMERULAR FILTRATION RATE 70.4 (>42); LDL CHOLESTEROL 80.8 MG/DL (<100); NON-HDL-C 97.6 MG/DL; POTASSIUM SERUM 4.1 MMOL/L (3.5-5.1); SODIUM LEVEL 146.0 MMOL/L (136-145); TRIGLYCERIDES LEVEL 84.0 MG/DL (<150)
[2025-01-21 13:23] LABS: ESTIMATED AVERAGE GLUCOSE 166.0 MG/DL (60-110)
[2025-01-21 13:35] LABS: CREATININE, URINE 78.4 MG/DL; MALB URINE SIEMENS 15.0 MG/L; MAU/CREAT RATIO 19.1 MCG/MG (0.0-30.0)
== END ==
LOC: M SFHCCLAY 07:00
PROVIDERS: ATTEND Physician Assistant
DX: E11.9 Type 2 diabetes mellitus without complications (principal); I10 Essential (primary) hypertension; N40.1 Benign prostatic hyperplasia with lower urinary tract symptoms; E78.00 Pure hypercholesterolemia, unspecified; K21.9 Gastro-esophageal reflux disease without esophagitis; M25.551 Pain in right hip; I48.92 Unspecified atrial flutter; Z12.5 Encounter for screening for malignant neoplasm of prostate; M72.2 Plantar fascial fibromatosis
CPT/HCPCS: 80053; 80061; 82043; 83036; G0103